=== PATIENT | male | born 1950 | race Caucasian/White ===

== ENCOUNTER 2017-07-04 22:06 | Inpatient (IN) | payer BC, MEDICARE ==
[2017-07-04] MEDS ORDERED: NITROGLYCERIN OINT 1 INCH/GM PACKET TOPICAL STA (22:30)
--- NOTE | 2017-07-04 22:44 | ED ---
General Adult HPI - General Chief complaint: Chest Pain Stated complaint: cardiac Time Seen by Provider: 07/04/17 22:10 Source: patient, EMS, RN notes reviewed Mode of arrival: EMS Limitations: no limitations - History of Present Illness Initial comments: This is a 67-year-old male who presents emergency Department complaining of a near syncopal episode tonight. Patient states he was bowling and he couldn't find issues in the back into the bowling alley look for shoes and when he was going back to his truck he became very dizzy and thought he is given a pass also went on to his knees at which point someone called an ambulance for him. Patient states he at no time had any chest pain or any palpitations per patient denies any shortness of breath or difficulty breathing. Patient states he did not pass out. Patient denies being lightheaded currently. Patient denies any headache per patient denies numbness weakness. Patient denies any abdominal pain patient denies any nausea vomiting or diarrhea. Patient denies any recent fever chills or cough. Patient went down to his knees gently and denies any injury. - Related Data Home Medications Medication Instructions Recorded Confirmed DULoxetine HCL [Cymbalta] 60 mg PO DAILY 09/22/15 10/16/15 Insulin Aspart [NovoLOG Flexpen] 8 units SQ AC-LUNCH 09/22/15 10/16/15 Insulin Aspart [NovoLOG Flexpen] 16 units SQ AC-BRKFST 09/22/15 10/16/15 Insulin Aspart [NovoLOG Flexpen] 20 units SQ AC-SUPPER 09/22/15 10/16/15 Insulin Aspart [NovoLOG Flexpen] See Protocol SQ AC-TID PRN 09/22/15 10/13/15 Insulin Glargine [Lantus] 54 unit SQ QAM 09/22/15 10/16/15 Methocarbamol [Robaxin] 750 mg PO DAILY PRN 09/22/15 10/13/15 Metoprolol Succinate [Toprol XL] 50 mg PO DAILY 09/22/15 10/16/15 Vits A,C,E/Lutein/Minerals 1 each PO DAILY 09/22/15 10/16/15 [Ocuvite with Lutein Tablet] Lisinopril [Zestril] 5 mg PO QAM 10/13/15 10/17/15 Previous Rx's Medication Instructions Recorded Aspirin 325 mg PO DAILY #30 tab 09/25/15 Atorvastatin [Lipitor] 80 mg PO HS #30 tab 09/25/15 Nitroglycerin Sl Tabs [Nitrostat] 0.4 mg SUBLINGUAL Q5M PRN #25 tab 09/25/15 Prasugrel [Effient] 10 mg PO DAILY #30 tab 09/25/15 metFORMIN HCL [Glucophage] 1,500 mg PO AC-SUPPER #0 09/25/15 Allergies Allergy/AdvReac Type Severity Reaction Status Date / Time No Known Allergies Allergy Verified 07/04/17 22:47 Review of Systems ROS Statement: Those systems with pertinent positive or pertinent negative responses have been documented in the HPI. ROS Other: All systems not noted in ROS Statement are negative. 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 History of Any Multi-Drug Resistant Organisms: None Reported Past Surgical History: Adenoidectomy, Appendectomy, Ear Surgery, Heart Catheterization, Heart Catheterization With Stent, Hernia Repair, Orthopedic Surgery, Tonsillectomy Additional Past Surgical History / Comment(s): 10-16-15 heart cath w/2 stents to lad. 09/24/15 PCI with stent. Other surgical hx: 2001 cardiac cath, R shoulder surgery, umbilical hernia repair, surgery for sleep apnea & cataract R eye. Past Anesthesia/Blood Transfusion Reactions: Postoperative Nausea & Vomiting ( PONV) Date of Last Stent Placement:: 09/24/15 Past Psychological History: PTSD Smoking Status: Former smoker Past Alcohol Use History: Occasional Past Drug Use History: None Reported - Past Family History Father Family Medical History: Cancer Additional Family Medical History / Comment(s): Prostate cancer. Father of heart problems at the age of 83 yrs. Mother Additional Family Medical History / Comment(s): Mother was a nurse and contracted hepatitis C from a needle stick. She of liver problems at age 78 yrs.. General Exam - General Exam Comments Initial Comments: GENERAL: Patient is well-developed and well-nourished. Patient is nontoxic and well- hydrated and is in mild distress. ENT: Neck is soft and supple. No significant lymphadenopathy is noted. Oropharynx is clear. Moist mucous membranes. Neck has full range of motion without eliciting any pain. EYES: The sclera were anicteric and conjunctiva were pink and moist. Extraocular movements were intact and pupils were equal round and reactive to light. Eyelids were unremarkable. PULMONARY: Unlabored respirations. Good breath sounds bilaterally. No audible rales rhonchi or wheezing was noted. CARDIOVASCULAR: There is a regular rate and rhythm without any murmurs gallops or rubs. ABDOMEN: Soft and nontender with normal bowel sounds. No palpable organomegaly was noted. There is no palpable pulsatile mass. SKIN: Skin is clear with no lesions or rashes and otherwise unremarkable. NEUROLOGIC: Patient is alert and oriented x3. Cranial nerves II through XII are grossly intact. Motor and sensory are also intact. Normal speech, volume and content. Symmetrical smile. MUSCULOSKELETAL: Normal extremities with adequate strength and full range of motion. LYMPHATICS: No significant lymphadenopathy is noted PSYCHIATRIC: Normal psychiatric evaluation. Limitations: no limitations Course Vital Signs 07/04/17 07/04/17 22:09 23:20 Temperature 97.8 F Pulse Rate 105 H 104 H Respiratory 16 16 Rate Blood Pressure 163/92 162/92 O2 Sat by Pulse 99 99 Oximetry Medical Decision Making - Medical Decision Making EKG shows sinus tachycardia at 107 bpm [place] interval is on a 42 QRS is 94 QT interval 364 QTC is 485. Patient's EKG shows some slight ST segment elevation in leads and aVF. Patient's having no chest pain and has had no chest pain at any time. Patient remained chest pain-free but because of the questionable ST segment elevation in the inferior leads I repeated an EKG the second EKG showed sinus tachycardia at 103 bpm AZ interval 250 QRS is 90 QT interval 350 QTC is 468 in the EKG shows ST segment elevation in leads aVF and slight elevation in lead 2. Patient has some ST segment depression in V1 and V2 Chest x-ray shows no acute abnormality. I spoke with Dr. Ernandez once I get second EKG he reviewed it and wanted the patient on heparin and he wanted a callback the troponin was elevated otherwise we will treat him like a unstable angina I spoke with Dr. Najera I admitted the patient and wrote admitting orders. I continue the heparin and aspirin and Nitropaste upstairs. - Lab Data Result diagrams: 07/04/17 22:22 07/04/17 22:22 Lab Results 07/04/17 07/04/17 07/04/17 Range/Units 22:22 22:22 22:22 WBC 10.5 (3.8-10.6) k/uL RBC 4.65 (4.30-5.90) m/uL Hgb 13.4 (13.0-17.5) gm/dL Hct 41.3 (39.0-53.0) % MCV 88.7 (80.0-100.0) fL MCH 28.7 (25.0-35.0) pg MCHC 32.3 (31.0-37.0) g/dL RDW 13.0 (11.5-15.5) % Plt Count 212 (150-450) k/uL Neutrophils % 76 % Lymphocytes % 15 % Monocytes % 6 % Eosinophils % 2 % Basophils % 1 % Neutrophils # 8.0 H (1.3-7.7) k/uL Lymphocytes # 1.6 (1.0-4.8) k/uL Monocytes # 0.6 (0-1.0) k/uL Eosinophils # 0.2 (0-0.7) k/uL Basophils # 0.1 (0-0.2) k/uL PT (9.0-12.0) sec INR (<1.2) APTT (22.0-30.0) sec Sodium 141 (137-145) mmol/L Potassium 3.6 (3.5-5.1) mmol/L Chloride 102 (98-107) mmol/L Carbon Dioxide 22 (22-30) mmol/L Anion Gap 17 mmol/L BUN 18 (9-20) mg/dL Creatinine 0.70 (0.66-1.25) mg/dL Est GFR (MDRD) Af Amer >60 (>60 ml/min/1.73 sqM) Est GFR (MDRD) Non-Af >60 (>60 ml/min/1.73 sqM) Glucose 82 (74-99) mg/dL Calcium 9.5 (8.4-10.2) mg/dL Magnesium 1.9 (1.6-2.3) mg/dL Total Bilirubin 0.4 (0.2-1.3) mg/dL AST 25 (17-59) U/L ALT 47 (21-72) U/L Alkaline Phosphatase 96 (38-126) U/L Total Creatine Kinase 98 (55-170) U/L CK-MB (CK-2) 3.0 H* (0.0-2.4) ng/mL CK-MB (CK-2) Rel Index 3.1 Troponin I 0.024 (0.000-0.034) ng/mL Total Protein 7.4 (6.3-8.2) g/dL Albumin 4.5 (3.5-5.0) g/dL 07/04/17 Range/Units 22:22 WBC (3.8-10.6) k/uL RBC (4.30-5.90) m/uL Hgb (13.0-17.5) gm/dL Hct (39.0-53.0) % MCV (80.0-100.0) fL MCH (25.0-35.0) pg MCHC (31.0-37.0) g/dL RDW (11.5-15.5) % Plt Count (150-450) k/uL Neutrophils % % Lymphocytes % % Monocytes % % Eosinophils % % Basophils % % Neutrophils # (1.3-7.7) k/uL Lymphocytes # (1.0-4.8) k/uL Monocytes # (0-1.0) k/uL Eosinophils # (0-0.7) k/uL Basophils # (0-0.2) k/uL PT 10.1 (9.0-12.0) sec INR 1.0 (<1.2) APTT 20.6 L (22.0-30.0) sec Sodium (137-145) mmol/L Potassium (3.5-5.1) mmol/L Chloride (98-107) mmol/L Carbon Dioxide (22-30) mmol/L Anion Gap mmol/L BUN (9-20) mg/dL Creatinine (0.66-1.25) mg/dL Est GFR (MDRD) Af Amer (>60 ml/min/1.73 sqM) Est GFR (MDRD) Non-Af (>60 ml/min/1.73 sqM) Glucose (74-99) mg/dL Calcium (8.4-10.2) mg/dL Magnesium (1.6-2.3) mg/dL Total Bilirubin (0.2-1.3) mg/dL AST (17-59) U/L ALT (21-72) U/L Alkaline Phosphatase (38-126) U/L Total Creatine Kinase (55-170) U/L CK-MB (CK-2) (0.0-2.4) ng/mL CK-MB (CK-2) Rel Index Troponin I (0.000-0.034) ng/mL Total Protein (6.3-8.2) g/dL Albumin (3.5-5.0) g/dL Critical Care Time Critical Care Time: Yes Total Critical Care Time: 35 Disposition Clinical Impression: Near syncope, Elevated troponin Disposition: ADMITTED IP TO THIS HOSP Referrals: Wilver Najera MD [Primary Care Provider] - 1-2 days Time of Disposition: 23:56
[2017-07-04 22:48] LABS: Basophils # (A) 0.1 k/uL (0-0.2); Basophils % (A) 1 %; Eosinophils # (A) 0.2 k/uL (0-0.7); Eosinophils % (A) 2 %; HCT 41.3 % (39.0-53.0); HGB 13.4 gm/dL (13.0-17.5); Lymphocytes # (A) 1.6 k/uL (1.0-4.8); Lymphocytes % (A) 15 %; MCH 28.7 pg (25.0-35.0); MCHC 32.3 g/dL (31.0-37.0); MCV 88.7 fL (80.0-100.0); Mean Platelet Volume 7.3; Monocytes # (A) 0.6 k/uL (0-1.0); Monocytes % (A) 6 %; Neutrophils % (A) 76 %; Platelet Count 212 k/uL (150-450); RBC 4.65 m/uL (4.30-5.90); WBC 10.5 k/uL (3.8-10.6)
[2017-07-04 23:01] LABS: ALT 47 U/L (21-72); AST 25 U/L (17-59); Albumin 4.5 g/dL (3.5-5.0); Alkaline Phosphatase 96 U/L (38-126); Anion Gap 17 mmol/L; Blood Urea Nitrogen 18 mg/dL (9-20); Calcium 9.5 mg/dL (8.4-10.2); Carbon Dioxide 22 mmol/L (22-30); Chloride 102 mmol/L (98-107); Glucose 82 mg/dL (74-99); Magnesium 1.9 mg/dL (1.6-2.3); Potassium 3.6 mmol/L (3.5-5.1); Sodium 141 mmol/L (137-145); Total Bilirubin 0.4 mg/dL (0.2-1.3); Total Protein 7.4 g/dL (6.3-8.2)
--- NOTE | 2017-07-04 23:03 | XR ---
EXAMINATION TYPE: XR chest 2V DATE OF EXAM: 07/04/2017 COMPARISON: NONE HISTORY: Syncope TECHNIQUE: Frontal and lateral views of the chest are obtained. FINDINGS: There is no heart failure nor confluent pneumonic infiltrate. Costophrenic angles are link r. Thoracic aorta is atheromatous. There are chest leads. Bony thorax is intact. IMPRESSION: No active cardiopulmonary disease.
[2017-07-04] MEDS ORDERED: HEPARIN SODIUM,PORCINE 5,000 UNIT/ML 1 ML VIAL IV ONE (23:12)
[2017-07-04] MEDS ORDERED: ATORVASTATIN 80 MG TAB PO STA (23:12)
[2017-07-04 23:16] LABS: Prothrombin Time 10.1 sec (9.0-12.0)
[2017-07-04 23:28] LABS: Troponin I 0.024 ng/mL (0.000-0.034)
[2017-07-04 23:31] LABS: Partial Thromboplastin Time 20.6 sec (22.0-30.0)
[2017-07-05 01:17] VITALS: BMI 32.5
[2017-07-05] MEDS ORDERED: HEPARIN SOD,PORK IN 0.45% NACL 25,000 UNIT in 0.45% NACL 1 500ML.BAG IV SCH (01:30)
[2017-07-05] MEDS: NITROGLYCERIN OINT 1 INCH/GM PACKET TOPICAL SCH ×3 (02:05→15:10)
[2017-07-05 04:57] LABS: Cholesterol 247 mg/dL (<200); HDL Cholesterol 44 mg/dL (40-60); LDL Cholesterol,Calculated 171 mg/dL (0-99); Triglycerides 161 mg/dL (<150)
[2017-07-05 05:06] LABS: Creatine Kinase MB 19.8 ng/mL (0.0-2.4)
[2017-07-05 05:07] LABS: Troponin I 3.97 ng/mL (0.000-0.034)
[2017-07-05 06:13] LABS: Glucose,Whole Blood 106 mg/dL (75-99)
[2017-07-05] MEDS ORDERED: METHOCARBAMOL 750 MG TAB PO PRN (07:03)
[2017-07-05] MEDS ORDERED: NITROGLYCERIN SL TABS 0.4 MG TAB SUBLINGUAL PRN ×3 (07:03→12:46)
--- NOTE | 2017-07-05 07:11 | P.HPIM ---
History of Present Illness Chief Complaint: Weakness with presyncope. This is a history of physical and a 67-year-old white male with known history of coronary artery disease who was bowling yesterday and stated significant weakness. He has been feeling off for the last several days. A friend is with him this morning who states significant poor control of blood sugar. He has had history of this in the past. He has even been to intensive diabetes clinic and proven that he's been able to keep his blood sugar down, but when left to his own devices, he does not follow his diet properly. He states weakness with shortness of breath and presyncope. He states that without someone helping him , he felt that he would pass out. He has not had previous symptoms recently but they have been having multiple falls reported by his family members and friends over the last 3 months. No overt loss of consciousness. No history of seizure disorder. Review of Systems Constitutional: Reports weakness Eyes: denies blurred vision, denies pain Ears, nose, mouth and throat: Denies headache, Denies sore throat Cardiovascular: Denies chest pain, Denies shortness of breath Respiratory: Denies cough Musculoskeletal: Denies myalgias Integumentary: Denies pruritus, Denies rash Neurological: Reports weakness Psychiatric: Denies anxiety, Denies depression Endocrine: Denies fatigue, Denies weight change Past Medical History Past Medical History: Coronary Artery Disease (CAD), Chest Pain / Angina, Diabetes Mellitus, Hyperlipidemia, Hypertension, Neurologic Disorder, Osteoarthritis (OA), Sleep Apnea/CPAP/BIPAP Additional Past Medical History / Comment(s): 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 History of Any Multi-Drug Resistant Organisms: None Reported Past Surgical History: Adenoidectomy, Appendectomy, Ear Surgery, Heart Catheterization, Heart Catheterization With Stent, Hernia Repair, Orthopedic Surgery, Tonsillectomy Additional Past Surgical History / Comment(s): 10-16-15 heart cath w/2 stents to lad. 09/24/15 PCI with stent. Other surgical hx: 2001 cardiac cath, R shoulder surgery, umbilical hernia repair, surgery for sleep apnea & cataract R eye. Past Anesthesia/Blood Transfusion Reactions: Postoperative Nausea & Vomiting ( PONV) Date of Last Stent Placement:: 09/24/15 Past Psychological History: PTSD Additional Psychological History / Comment(s): Pt believes he has PTSD. He is a . Smoking Status: Former smoker Past Alcohol Use History: Occasional Additional Past Alcohol Use History / Comment(s): Quit at age 28, smoked only for a few yrs. Pt quit drinking in 1983 Past Drug Use History: None Reported - Past Family History Father Family Medical History: Cancer Additional Family Medical History / Comment(s): Prostate cancer. Father of heart problems at the age of 83 yrs. Mother Additional Family Medical History / Comment(s): Mother was a nurse and contracted hepatitis C from a needle stick. She of liver problems at age 78 yrs.. Medications and Allergies Home Medications Medication Instructions Recorded Confirmed Type DULoxetine HCL [Cymbalta] 60 mg PO DAILY 09/22/15 10/16/15 History Insulin Aspart [NovoLOG Flexpen] 8 units SQ AC-LUNCH 09/22/15 10/16/15 History Insulin Aspart [NovoLOG Flexpen] 16 units SQ AC-BRKFST 09/22/15 10/16/15 History Insulin Aspart [NovoLOG Flexpen] 20 units SQ AC-SUPPER 09/22/15 10/16/15 History Insulin Aspart [NovoLOG Flexpen] See Protocol SQ AC-TID PRN 09/22/15 10/13/15 History Insulin Glargine [Lantus] 54 unit SQ QAM 09/22/15 10/16/15 History Methocarbamol [Robaxin] 750 mg PO DAILY PRN 09/22/15 10/13/15 History Metoprolol Succinate [Toprol XL] 50 mg PO DAILY 09/22/15 10/16/15 History Vits A,C,E/Lutein/Minerals 1 each PO DAILY 09/22/15 10/16/15 History [Ocuvite with Lutein Tablet] Aspirin 325 mg PO DAILY #30 tab 09/25/15 10/16/15 Rx Atorvastatin [Lipitor] 80 mg PO HS #30 tab 09/25/15 10/16/15 Rx Nitroglycerin Sl Tabs [Nitrostat] 0.4 mg SUBLINGUAL Q5M PRN #25 tab 09/25/15 Rx Prasugrel [Effient] 10 mg PO DAILY #30 tab 09/25/15 10/16/15 Rx metFORMIN HCL [Glucophage] 1,500 mg PO AC-SUPPER #0 09/25/15 10/16/15 Rx Lisinopril [Zestril] 5 mg PO QAM 10/13/15 10/17/15 History Allergies Allergy/AdvReac Type Severity Reaction Status Date / Time No Known Allergies Allergy Verified 07/04/17 22:47 Physical Exam Vitals: Vital Signs Temp Pulse Pulse Resp BP BP Pulse Ox 07/05/17 04:00 92 18 128/75 95 07/05/17 01:44 102 H 18 133/77 98 07/05/17 00:27 108 H 16 144/68 99 07/04/17 23:20 104 H 16 162/92 99 07/04/17 22:09 97.8 F 105 H 16 163/92 99 Intake and Output 07/04/17 07/05/17 07/05/17 22:59 06:59 14:59 Other: Voiding Method Incontinent # Voids 1 Weight 117.934 kg 118.3 kg - Constitutional General appearance: cooperative, no acute distress - EENT Eyes: EOMI - Neck Neck: no lymphadenopathy - Respiratory Respiratory: bilateral: CTA - Cardiovascular Rhythm: regular Heart sounds: normal: S1, S2 Abnormal Heart Sounds: no S3 Gallop - Gastrointestinal General gastrointestinal: soft, no tenderness - Neurologic Neurologic: CNII-XII intact - Musculoskeletal Musculoskeletal: strength equal bilaterally - Psychiatric Psychiatric: A&O x's 3, intact judgment & insight Results CBC & Chem 7: 07/04/17 22:22 07/04/17 22:22 Labs: Abnormal Lab Results - Last 24 Hours (Table) 07/04/17 07/04/17 07/04/17 Range/Units 22:22 22:22 22:22 Neutrophils # 8.0 H (1.3-7.7) k/uL APTT 20.6 L (22.0-30.0) sec POC Glucose (mg/dL) (75-99) mg/dL Total Creatine Kinase (55-170) U/L CK-MB (CK-2) 3.0 H* (0.0-2.4) ng/mL Troponin I (0.000-0.034) ng/mL Triglycerides (<150) mg/dL Cholesterol (<200) mg/dL LDL Cholesterol, Calc (0-99) mg/dL 07/05/17 07/05/17 07/05/17 Range/Units 04:12 04:12 06:10 Neutrophils # (1.3-7.7) k/uL APTT (22.0-30.0) sec POC Glucose (mg/dL) 106 H (75-99) mg/dL Total Creatine Kinase 224 H (55-170) U/L CK-MB (CK-2) 19.8 H* (0.0-2.4) ng/mL Troponin I 3.970 H* (0.000-0.034) ng/mL Triglycerides 161 H (<150) mg/dL Cholesterol 247 H (<200) mg/dL LDL Cholesterol, Calc 171 H (0-99) mg/dL Thrombosis Risk Factor Assmnt - Choose All That Apply Each Risk Factor Represents 2 Points: Age 61-74 years Thrombosis Risk Factor Assessment Total Risk Factor Score: 2 Thrombosis Risk Factor Assessment Level: Low Risk Assessment and Plan (1) Diabetes Current Visit: Yes Status: Acute Code(s): E11.9 - TYPE 2 DIABETES MELLITUS WITHOUT COMPLICATIONS SNOMED Code(s): 77962778 (2) Elevated troponin Current Visit: Yes Status: Acute Code(s): R74.8 - ABNORMAL LEVELS OF OTHER SERUM ENZYMES SNOMED Code(s): 355870056 (3) Near syncope Current Visit: Yes Status: Acute Code(s): R55 - SYNCOPE AND COLLAPSE SNOMED Code(s): 128673998 Plan: Rule out myocardial infarction. Check computed tomography scan of head if not done. Echocardiogram carotid Doppler to be considered. Reconcile home medications. The patient states he typically takes about 54 units of Lantus, although he is somewhat noncompliant with this. We will decrease this to 26 units and keep him nothing by mouth pending cardiology evaluation. Otherwise, keep on sliding scale. See orders otherwise. Time with Patient: Greater than 30
--- NOTE | 2017-07-05 08:27 | P.CRDCN ---
History of Present Illness Consult date: 07/05/17 Requesting physician: Wilver Najera Consult reason: sycope Chief complaint: Near syncope, chest pain History of present illness: This is a 67-year-old gentleman who follows with Dr. Nic Ernandez in the office. He has a known history of coronary artery disease with prior PCI, diabetes, hyperlipidemia, patient underwent stenting of the first obtuse marginal as well as PCI of the LAD in September 2015, hypertension history, he presents to the hospital with a near syncopal episode. According to the patient , he was at the [employer], he had finished [employer]one, and states that he could not find his shoes. He states that he walked back out to the truck to see if his Jenn Rykert shoes were out there, patient states he became very lightheaded and dizzy and felt as though he may pass out. He did go down to his knees. According to the patient he did not pass out completely. He does state that these symptoms remind him of what he has had in the past prior to his angioplasty. He denies any overt chest discomfort at that time. Initial EKG on presentation here showed a sinus tachycardia with ST elevation noted in the inferior leads, EKG performed this morning shows a normal sinus rhythm with T-wave inversion in the inferior leads. Chest x-ray does not reveal any acute cardiopulmonary disease. Blood pressure on arrival here 162/90 with a heart rate of 105, 99% on room air. Blood pressure this morning 136/80, heart rate in the 90s, 97% on room air. Laboratory data was reviewed, sodium 141, potassium 3.6, BUN 18, creatinine 0.7. Magnesium 1.9. Troponins 0.024, 3.9. Cholesterol 247, LDL 171, HDL 44, triglycerides 151. At the time of my examination this morning, patient complains of some left shoulder and scapula discomfort. Mild dizziness. No chest discomfort. 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 History of Any Multi-Drug Resistant Organisms: None Reported Past Surgical History: Adenoidectomy, Appendectomy, Ear Surgery, Heart Catheterization, Heart Catheterization With Stent, Hernia Repair, Orthopedic Surgery, Tonsillectomy Additional Past Surgical History / Comment(s): 10-16-15 heart cath w/2 stents to lad. 09/24/15 PCI with stent. Other surgical hx: 2001 cardiac cath, R shoulder surgery, umbilical hernia repair, surgery for sleep apnea & cataract R eye. Past Anesthesia/Blood Transfusion Reactions: Postoperative Nausea & Vomiting ( PONV) Date of Last Stent Placement:: 09/24/15 Past Psychological History: PTSD Additional Psychological History / Comment(s): Pt believes he has PTSD. He is a . Smoking Status: Former smoker Past Alcohol Use History: Occasional Additional Past Alcohol Use History / Comment(s): Quit at age 28, smoked only for a few yrs. Pt quit drinking in 1983 Past Drug Use History: None Reported - Past Family History Father Family Medical History: Cancer Additional Family Medical History / Comment(s): Prostate cancer. Father of heart problems at the age of 83 yrs. Mother Additional Family Medical History / Comment(s): Mother was a nurse and contracted hepatitis C from a needle stick. She of liver problems at age 78 yrs.. Medications and Allergies Home Medications Medication Instructions Recorded Confirmed Type DULoxetine HCL [Cymbalta] 60 mg PO DAILY 09/22/15 10/16/15 History Insulin Aspart [NovoLOG Flexpen] 8 units SQ AC-LUNCH 09/22/15 10/16/15 History Insulin Aspart [NovoLOG Flexpen] 16 units SQ AC-BRKFST 09/22/15 10/16/15 History Insulin Aspart [NovoLOG Flexpen] 20 units SQ AC-SUPPER 09/22/15 10/16/15 History Insulin Aspart [NovoLOG Flexpen] See Protocol SQ AC-TID PRN 09/22/15 10/13/15 History Insulin Glargine [Lantus] 54 unit SQ QAM 09/22/15 10/16/15 History Methocarbamol [Robaxin] 750 mg PO DAILY PRN 09/22/15 10/13/15 History Metoprolol Succinate [Toprol XL] 50 mg PO DAILY 09/22/15 10/16/15 History Vits A,C,E/Lutein/Minerals 1 each PO DAILY 05/02/16 05/26/16 History [Ocuvite with Lutein Tablet] Aspirin 325 mg PO DAILY #30 tab 09/25/15 10/16/15 Rx Atorvastatin [Lipitor] 80 mg PO HS #30 tab 09/25/15 10/16/15 Rx Nitroglycerin Sl Tabs [Nitrostat] 0.4 mg SUBLINGUAL Q5M PRN #25 tab 09/25/15 Rx Prasugrel [Effient] 10 mg PO DAILY #30 tab 09/25/15 10/16/15 Rx metFORMIN HCL [Glucophage] 1,500 mg PO AC-SUPPER #0 09/25/15 10/16/15 Rx Lisinopril [Zestril] 5 mg PO QAM 10/13/15 10/17/15 History Allergies Allergy/AdvReac Type Severity Reaction Status Date / Time No Known Allergies Allergy Verified 07/04/17 22:47 Physical Exam Vitals: Vital Signs Temp Pulse Pulse Resp BP BP Pulse Ox 07/05/17 07:53 98.0 F 91 18 137/82 97 07/05/17 04:00 92 18 128/75 95 07/05/17 01:44 102 H 18 133/77 98 07/05/17 00:27 108 H 16 144/68 99 07/04/17 23:20 104 H 16 162/92 99 07/04/17 22:09 97.8 F 105 H 16 163/92 99 Intake and Output 07/04/17 07/05/17 07/05/17 22:59 06:59 14:59 Other: Voiding Method Incontinent # Voids 1 Weight 117.934 kg 118.3 kg PHYSICAL EXAMINATION: HEENT: Head is atraumatic, normocephalic. Pupils equal, round. Neck is supple. There is no elevated jugular venous pressure. HEART EXAMINATION: Heart S1, S2 normal. No murmur or gallop heard. CHEST EXAMINATION: Lungs are clear to auscultation and precussion. No chest wall tenderness is noted on palpation or with deep breathing. ABDOMEN: Soft, nontender. Bowel sounds are heard. No organomegaly noted. EXTREMITIES: 2+ peripheral pulses with no evidence of peripheral edema and no calf tenderness noted. NEUROLOGIC patient is awake, alert and oriented -3. . Results 07/04/17 22:22 07/04/17 22:22 Cardiac Enzymes 07/04/17 07/04/17 07/05/17 Range/Units 22:22 22:22 04:12 AST 25 (17-59) U/L CK-MB (CK-2) 3.0 H* 19.8 H* (0.0-2.4) ng/mL Troponin I 0.024 3.970 H* (0.000-0.034) ng/mL Coagulation 07/04/17 Range/Units 22:22 PT 10.1 (9.0-12.0) sec APTT 20.6 L (22.0-30.0) sec Lipids 07/05/17 Range/Units 04:12 Triglycerides 161 H (<150) mg/dL Cholesterol 247 H (<200) mg/dL HDL Cholesterol 44 (40-60) mg/dL CBC 07/04/17 Range/Units 22:22 WBC 10.5 (3.8-10.6) k/uL RBC 4.65 (4.30-5.90) m/uL Hgb 13.4 (13.0-17.5) gm/dL Hct 41.3 (39.0-53.0) % Plt Count 212 (150-450) k/uL Comprehensive Metabolic Panel 07/04/17 Range/Units 22:22 Sodium 141 (137-145) mmol/L Potassium 3.6 (3.5-5.1) mmol/L Chloride 102 (98-107) mmol/L Carbon Dioxide 22 (22-30) mmol/L BUN 18 (9-20) mg/dL Creatinine 0.70 (0.66-1.25) mg/dL Glucose 82 (74-99) mg/dL Calcium 9.5 (8.4-10.2) mg/dL AST 25 (17-59) U/L ALT 47 (21-72) U/L Alkaline Phosphatase 96 (38-126) U/L Total Protein 7.4 (6.3-8.2) g/dL Albumin 4.5 (3.5-5.0) g/dL Current Medications Generic Name Dose Route Start Last Admin Trade Name Freq PRN Reason Stop Dose Admin Aspirin 325 mg 07/05/17 09:00 Aspirin PO DAILY [facility] Atorvastatin Calcium 80 mg 07/05/17 21:00 Lipitor PO HS [facility] Duloxetine HCl 60 mg 07/05/17 09:00 Cymbalta PO DAILY LOU Heparin Sodium/Sodium Chloride 500 mls @ 20 mls/hr 07/05/17 01:30 07/05/17 02 :58 25,000 unit/ Sodium Chloride IV 8.48 units/kg/hr .Q24H LOU 20 mls/hr Protocol Administration 8.48 UNITS/KG/HR Insulin Detemir 26 unit 07/05/17 21:00 Levemir SQ HS LOU Methocarbamol 750 mg 07/05/17 07:03 Robaxin PO DAILY PRN Pain Metoprolol Succinate 50 mg 07/05/17 09:00 Toprol Xl PO DAILY LOU Multivitamins/Minerals 1 each 07/05/17 09:00 Ivite PO DAILY LOU Nitroglycerin 1 inch 07/05/17 00:00 07/05/17 05:05 Nitro-Bid Oint TOPICAL 1 inch Q6HR LOU Administration Nitroglycerin 0.4 mg 07/04/17 23:57 Nitrostat SUBLINGUAL Q5M PRN Chest Pain Nitroglycerin 0.4 mg 07/05/17 07:03 Nitrostat SUBLINGUAL Q5M PRN Chest Pain Prasugrel 10 mg 07/05/17 09:00 Effient PO DAILY LOU Intake and Output 07/04/17 07/05/17 07/05/17 22:59 06:59 14:59 Other: Voiding Method Incontinent # Voids 1 Weight 117.934 kg 118.3 kg 07/04/17 22:22 07/04/17 22:22 EKG Interpretations (text) Initial EKG on presentation here showed a sinus tachycardia with ST elevation noted in the inferior leads. EKG performed this morning shows normal sinus rhythm with T-wave inversion in the inferior leads. Assessment and Plan Plan: Assessment and plan #1 acute myocardial infarction #2 known history of coronary artery disease with prior circumflex and LAD stenting #3 hypertension #4 diabetes #5 hyperlipidemia Plan We will obtain a stat echocardiogram with Doppler study. Continue IV heparin, aspirin, Lipitor 80, metoprolol 50 mg daily, Nitropaste, and Effient 10 mg daily. Patient has also been advised that he may need to undergo cardiac catheterization, the risks and benefits again were explained to the patient in detail, and he is willing to proceed. DNP note has been reviewed, I agree with a documented findings and plan of care. Patient was seen and examined.
[2017-07-05] MEDS: NITROGLYCERIN SL TABS 0.4 MG TAB SUBLINGUAL PRN ×2 (08:41→08:48)
[2017-07-05] MEDS ORDERED: PRASUGREL 10 MG TAB PO SCH (09:00)
[2017-07-05] MEDS ORDERED: ASPIRIN 325 MG TAB PO SCH (09:00)
[2017-07-05] MEDS ORDERED: ALPRAZolam 0.5 MG TAB PO PRN (09:03)
[2017-07-05] MEDS ORDERED: SODIUM CHLORIDE 0.9% 1,000 ML in EMPTY BAG 1 BAG IV ONE (09:03)
[2017-07-05] MEDS ORDERED: ATORVASTATIN 80 MG TAB PO STA (09:03)
[2017-07-05] MEDS ORDERED: ASPIRIN 325 MG TAB PO STA (09:03)
[2017-07-05] MEDS ORDERED: ALPRAZolam 0.25 MG TAB PO PRN (09:03)
[2017-07-05] MEDS: ATORVASTATIN 80 MG TAB PO SCH (09:21)
[2017-07-05] MEDS: METOPROLOL SUCCINATE (ER) 50 MG TAB.ER.24H PO SCH (09:21)
[2017-07-05] MEDS: VIT A,C & E-LUTEIN-MINERALS 1 EACH TAB PO SCH (09:22)
--- NOTE | 2017-07-05 10:06 | US ---
EXAMINATION TYPE: US carotid duplex BILAT DATE OF EXAM: 07/05/2017 COMPARISON: NONE CLINICAL HISTORY: Presyncope. Near syncope EXAM MEASUREMENTS: RIGHT: Peak Systolic Velocity (PSV) cm/sec ----- Right CCA: 79.1 ----- Right ICA: 88.7 ----- Right ECA: 110.7 ICA/CCA ratio: 1.1 RIGHT: End Diastole cm/sec ----- Right CCA: 9.0 ----- Right ICA: 18.3 ----- Right ECA: 0.0 LEFT: Peak Systolic Velocity (PSV) cm/sec ----- Left CCA: 100.0 ----- Left ICA: 86.2 ----- Left ECA: 145.7 ICA/CCA ratio: 0.9 LEFT: End Diastole cm/sec ----- Left CCA: 10.8 ----- Left ICA: 22.1 ----- Left ECA: 0.0 VERTEBRALS (direction of flow): Right Vertebral: Antegrade Left Vertebral: Antegrade Rhythm: Normal Grayscale images show moderate eccentric plaque right carotid bulb and mild to moderate eccentric matt que left carotid bulb. Velocity measurements and ratios remain within normal limits in the bilateral internal carotid arteries. Increased peak systolic velocity left external carotid artery is incidenta lly noted. IMPRESSION: Moderate atherosclerotic change bilaterally without hemodynamically significant stenosis seen in either internal carotid artery.
[2017-07-05] MEDS ORDERED: IV FLUID CONTINUATION 200 ML IV ONE (10:54)
[2017-07-05] MEDS ORDERED: diphenhydrAMINE 50 MG/ML 1 ML VIAL IVP ONE ×2 (11:14→11:19)
[2017-07-05] MEDS ORDERED: MIDAZOLAM 2 MG/2 ML VIAL IV ONE ×2 (11:15→11:18)
[2017-07-05] MEDS ORDERED: NITROGLYCERIN SL TABS 0.4 MG TAB SUBLINGUAL ONE ×2 (11:18→11:54)
[2017-07-05] MEDS ORDERED: CLOPIDOGREL 75 MG TAB PO ONE ×2 (11:18→12:32)
[2017-07-05] MEDS ORDERED: LIDOCAINE 2% INJ 20 MG/ML SQ ONE (11:20)
--- NOTE | 2017-07-05 11:22 | ECHOF ---
Referral Reason:assess lvf MEASUREMENTS -------- HEIGHT: 185.4 cm WEIGHT: 117.9 kg BP: 115/70 IVSd: 1.5 cm (0.6 - 1.1) LVIDd: 4.5 cm (3.9 - 5.3) LVPWd: 1.7 cm (0.6 - 1.1) IVSs: 2.1 cm LVIDs: 3.0 cm LVPWs: 2.1 cm Ao Diam: 3.7 cm (2.0 - 3.7) AV Cusp: 2.0 cm (1.5 - 2.6) LA Diam: 4.0 cm (2.7 - 3.8) MV EXCURSION: 17.354 mm (> 18.000) MV EF SLOPE: 110 mm/s (70 - 150) EPSS: 1.0 cm MV E Guy: 0.75 m/s MV DecT: 202 ms MV A Guy: 0.81 m/s MV E/A Ratio: 0.93 RAP: 5.00 mmHg RVSP: 9.20 mmHg FINDINGS -------- Sinus rhythm. This was a technically difficult study with suboptimal views. The left ventricular size is normal. There is moderate concentric left ventricular hypertrophy. O verall left ventricular systolic function is low-normal with, an EF between 50 - 55 %. The right ventricle is normal in size and function. The left atrium is normal in size. The right atrium is normal in size. 1.5mg of Definity was utilized for enhancement of images The aortic valve is trileaflet, and appears structurally normal. No aortic stenosis or regurgitation. There is trace mitral regurgitation. Mild tricuspid regurgitation present. The right ventricular systolic pressure, as measured by Doppl er, is 9.20mmHg. The pulmonic valve was not well visualized. There is no pericardial effusion. CONCLUSIONS -------- 1. Sinus rhythm. 2. This was a technically difficult study with suboptimal views. 3. The left ventricular size is normal. 4. There is moderate concentric left ventricular hypertrophy. 5. Overall left ventricular systolic function is low-normal with, an EF between 50 - 55 %. 6. The left atrium is normal in size. 7. Lumason used 8. The aortic valve is trileaflet, and appears structurally normal. No aortic stenosis or regurgitati on. 9. There is trace mitral regurgitation. 10. Mild tricuspid regurgitation present. 11. The right ventricular systolic pressure, as measured by Doppler, is 9.20mmHg. 12. The pulmonic valve was not well visualized. 13. There is no pericardial effusion. TODDLER GUIDE: Janki Park RDCS
[2017-07-05] MEDS ORDERED: BIVALIRUDIN BOLUS 250 MG/50 ML IV ONE (11:41)
[2017-07-05] MEDS ORDERED: BIVALIRUDIN 250 MG in SODIUM CHLORIDE 0.9% 40 ML IV ONE (11:42)
[2017-07-05] MEDS: NITROGLYCERIN 1000MCG/10ML SYRINGE INTRACORON ONE ×2 (11:43→11:57)
[2017-07-05] MEDS ORDERED: HYDROmorphone 2 MG/ML 1 ML SYRINGE IV ONE (12:06)
[2017-07-05] MEDS ORDERED: BIVALIRUDIN 250 MG in SODIUM CHLORIDE 0.9% 50 ML IV ONE (12:11)
[2017-07-05] MEDS ORDERED: IOHEXOL 350 MG/ML (PER ML) 100ML BTL INJ ONE (12:32)
[2017-07-05] MEDS ORDERED: RX INFO: IV CONTRAST WAS GIVEN 1 EACH MISC MISCELLANE PRN (12:46)
[2017-07-05] MEDS ORDERED: ATROPINE SULFATE 0.1 MG/ML 10ML SYRINGE IV PRN (12:46)
[2017-07-05] MEDS ORDERED: ZOLPIDEM 5 MG TAB PO PRN (12:46)
[2017-07-05] MEDS ORDERED: MAG HYDROX/AL HYDROX/SIMETH 30 ML CUP PO PRN (12:46)
[2017-07-05] MEDS: SODIUM CHLORIDE 0.9% 1,000 ML IV SCH (13:45)
[2017-07-05 14:10] LABS: Troponin I 6.17 ng/mL (0.000-0.034)
[2017-07-05 14:11] LABS: Creatine Kinase MB 30.8 ng/mL (0.0-2.4)
[2017-07-05 14:19] LABS: Glucose,Whole Blood 184 mg/dL (75-99)
[2017-07-05] MEDS: DULoxetine HCL 60 MG CAPSULE.DR PO SCH (14:24)
[2017-07-05 16:54] LABS: Glucose,Whole Blood 184 mg/dL (75-99)
[2017-07-05] MEDS: INSULIN ASPART 100 UNIT/ML 1 ML 10 ML VIAL SQ SCH ×2 (17:50→21:31)
[2017-07-05 21:15] LABS: Glucose,Whole Blood 294 mg/dL (75-99)
[2017-07-05] MEDS: INSULIN DETEMIR 100 UNIT/ML 10 ML VIAL SQ SCH (21:31)
[2017-07-06] MEDS: SODIUM CHLORIDE 0.9% 1,000 ML IV SCH (03:24)
[2017-07-06 06:10] LABS: Glucose,Whole Blood 148 mg/dL (75-99)
[2017-07-06 06:32] LABS: Basophils # (A) 0.1 k/uL (0-0.2); Basophils % (A) 1 %; Eosinophils # (A) 0.1 k/uL (0-0.7); Eosinophils % (A) 2 %; HCT 36.3 % (39.0-53.0); HGB 12.3 gm/dL (13.0-17.5); Lymphocytes # (A) 1.9 k/uL (1.0-4.8); Lymphocytes % (A) 24 %; MCH 29.3 pg (25.0-35.0); MCHC 33.8 g/dL (31.0-37.0); MCV 86.7 fL (80.0-100.0); Mean Platelet Volume 7.4; Monocytes # (A) 0.6 k/uL (0-1.0); Monocytes % (A) 7 %; Neutrophils % (A) 64 %; Platelet Count 206 k/uL (150-450); RBC 4.19 m/uL (4.30-5.90); RDW 13.2 % (11.5-15.5); WBC 7.7 k/uL (3.8-10.6)
[2017-07-06 06:55] LABS: Anion Gap 8 mmol/L; Blood Urea Nitrogen 13 mg/dL (9-20); Calcium 9.4 mg/dL (8.4-10.2); Carbon Dioxide 24 mmol/L (22-30); Chloride 107 mmol/L (98-107); Glucose 141 mg/dL (74-99); Sodium 139 mmol/L (137-145)
[2017-07-06] MEDS: INSULIN ASPART 100 UNIT/ML 1 ML 10 ML VIAL SQ SCH ×4 (07:02→21:31)
--- NOTE | 2017-07-06 07:54 | P.PN ---
Subjective Principal diagnosis: Status post cardiac cath. The patient is here essentially for element of syncope. Cardiac catheterization was done yesterday. Results are pending. The patient feels much better. No overt chest pain or presyncopal/syncopal beats stated. No voiding difficulties. He has an underlying history diabetes. Objective - Vital Signs Vital signs: Vital Signs Temp 98.0 F 07/06/17 04:00 Pulse 73 07/06/17 04:00 Resp 16 07/06/17 04:00 BP 121/68 07/06/17 04:00 Pulse Ox 96 07/06/17 04:00 Intake & Output 07/05/17 07/06/17 07/06/17 18:59 06:59 18:59 Intake Total 389.73 450 Output Total 1050 Balance -660.27 450 Weight 118.3 kg 118.5 kg Intake: IV 153.73 Intake, IV Titration 325 Amount Sodium Chloride 0.9% 1, 325 000 ml @ 75 mls/hr IV . [id number] LOU Rx#:[id number] Oral 236 125 Output: Urine 1050 Other: Voiding Method Urinal Urinal # Voids 3 - Constitutional General appearance: Present: cooperative. Absent: no acute distress - EENT Eyes: Absent: abnormal pupil - Respiratory Respiratory: bilateral: CTA - Cardiovascular Rhythm: regular Heart sounds: normal: S1, S2 - Gastrointestinal General gastrointestinal: Present: soft. Absent: tenderness - Labs CBC & Chem 7: 07/06/17 05:43 07/06/17 05:43 Labs: Abnormal Lab Results - Last 24 Hours (Table) 07/05/17 07/05/17 07/05/17 Range/Units 13:16 14:17 16:46 RBC (4.30-5.90) m/uL Hgb (13.0-17.5) gm/dL Hct (39.0-53.0) % Glucose (74-99) mg/dL POC Glucose (mg/dL) 184 H 184 H (75-99) mg/dL Total Creatine Kinase 312 H (55-170) U/L CK-MB (CK-2) 30.8 H* (0.0-2.4) ng/mL Troponin I 6.170 H* (0.000-0.034) ng/mL 07/05/17 07/06/17 07/06/17 Range/Units 21:13 05:43 05:43 RBC 4.19 L (4.30-5.90) m/uL Hgb 12.3 L (13.0-17.5) gm/dL Hct 36.3 L (39.0-53.0) % Glucose 141 H (74-99) mg/dL POC Glucose (mg/dL) 294 H (75-99) mg/dL Total Creatine Kinase (55-170) U/L CK-MB (CK-2) (0.0-2.4) ng/mL Troponin I (0.000-0.034) ng/mL 07/06/17 Range/Units 06:09 RBC (4.30-5.90) m/uL Hgb (13.0-17.5) gm/dL Hct (39.0-53.0) % Glucose (74-99) mg/dL POC Glucose (mg/dL) 148 H (75-99) mg/dL Total Creatine Kinase (55-170) U/L CK-MB (CK-2) (0.0-2.4) ng/mL Troponin I (0.000-0.034) ng/mL Assessment and Plan (1) Diabetes Current Visit: Yes Status: Acute Code(s): E11.9 - TYPE 2 DIABETES MELLITUS WITHOUT COMPLICATIONS SNOMED Code(s): 78010949 (2) Elevated troponin Current Visit: Yes Status: Acute Code(s): R74.8 - ABNORMAL LEVELS OF OTHER SERUM ENZYMES SNOMED Code(s): 481105669 (3) Near syncope Current Visit: Yes Status: Acute Code(s): R55 - SYNCOPE AND COLLAPSE SNOMED Code(s): 398888947 Plan: Await catheterization results for pending therapeutic change. The patient seems to be clinically improved. Advance diet and increased home dose of Lantus. See orders otherwise. Anticipate discharge in next 24-48 hours.
--- NOTE | 2017-07-06 08:41 | CC ---
CARDIAC CATHETERIZATION REPORT DATE OF SERVICE: 07/05/2017 PROCEDURE: 1. Left heart catheterization and coronary angiography. 2. PTCA and stenting of a complex proximal/mid circumflex coronary artery involving acute bend and with heavy calcification. 3. PTCA of first obtuse marginal branch of circumflex. Moderate conscious sedation time 77 minutes. A combination of Versed and fentanyl were used along with some Dilaudid for back pain. CLINICAL INFORMATION: Mr. Elmer Fermin is a 67-year-old gentleman with a history of type 2 diabetes, hypertension, hyperlipidemia, and CAD. In the first week of September 2015, I performed stenting of the first obtuse marginal branch that was subtotally occluded. Later on in the month on September, I performed stenting of the mid LAD that was heavily calcified after performing orbital atherectomy. Patient apparently has been noncompliant with medications. His diabetes control has worsened. He came into the hospital after an episode of what seems to be dizziness and lightheadedness without actual syncope and had a troponin elevation. He presented with a non-ST elevation OK with inferior nonspecific ST-T changes and was advised coronary angiography. Risks, benefits, options, rationale were explained. PROCEDURE NOTE: Under local anesthesia and strict aseptic precautions, a 6-[place] introducer was placed in the right femoral artery. Using standard Milind catheters I performed coronary angiography. Selective coronary angiography of RCA was not possible because of heavy calcification and a posterior location. Following coronary angiography, I recommended intervention that was performed in the same setting. CORONARY ANGIOGRAPHY FINDINGS: RIGHT CORONARY ARTERY: Nondominant vessel has calcification at the ostium, had difficulties with selective injection. There is diffuse noncritical disease throughout and it bifurcates into 2 branches in the midportion. There is diffuse noncritical disease in the nondominant RCA. LEFT MAIN CORONARY ARTERY: Short patent calcified vessel free of significant disease that bifurcates into LAD and circumflex. LEFT ANTERIOR DESCENDING CORONARY ARTERY: Good caliber vessel extends along the antral wall. The midportion of the LAD which was stented in 2016 is widely patent with brisk flow and runs all the way to the apex giving off septal and diagonal branches. There are minor irregularities but no significant disease in the entire LAD system and the stented segment is patent. LEFT POSTERIOR CIRCUMFLEX CORONARY ARTERY: This is a dominant vessel gives off a very high first obtuse marginal that was stented in 2016, now is patent, has a ostial disease of about 40% with brisk flow. Immediately after this branch, there is a progression of disease with 80% eccentric calcified lesion in the circumflex. Circumflex comes off at a 90 degree angle and this calcified diseased segment is progression of disease compared to the previous study. Beyond this, it gives off another obtuse marginal branch and then bifurcates into PDA and PLV, both of which have minor irregularities and no significant disease. FINAL IMPRESSION: This patient has a diffusely disease nondominant right coronary artery. Left anterior descending coronary artery that was stented in 2016 is widely patent. The circumflex which is dominant, has a first obtuse marginal that has a 40% ostial lesion, but stented segment is patent. Immediately after this, there is 80% heavily calcified eccentric lesion and the circumflex comes off at 90 degree angle. Distal branches of circumflex are free of significant disease. RECOMMENDATION: After some deliberation, I recommended intervention of the circumflex and also consider PTCA of the first obtuse marginal branch and proceeded to perform in the same setting. PCI PROCEDURE: I gave Angiomax bolus and infusion as per protocol. An additional 225 mg of Plavix were given. Using a Voda 3.5 catheter, I cannulated the left coronary artery. A BMW wire was used to cross the circumflex acute angle. I had to use a steep curve on the wire. Wire was kept distally. Predilatation was performed using a NC 3.0, 12 mm balloon. There was difficulty advancing the balloon because of the angulation. I then advanced a 3.5 caliber 12 mm long Xience drug-eluting stent with considerable difficulty and forward pressure. This stent was deployed right after the origin of the first obtuse marginal branch. The stent was deployed at 12 atmospheres. The proximal portion of the stent was still not open. I used a 3.75 caliber 8 mm NC trek balloon and dilated the proximal portion with a good result. There was some haziness at the proximal end, but this was addressed with additional inflation. Excellent result was noted. I then used a used a BMW wire to cross the lesion in the first obtuse marginal and dilated the first obtuse marginal in the proximal portion with a 2.5 caliber NC Trek balloon. This was dilated at 8 atmospheres for 30 seconds. Decent angiographic result was achieved. I performed multiple angiograms to look at the proximal portion of the stented segment, but I was comfortable that there was no significant lesion and the flow was brisk. The patient was pain free. EKG was unremarkable. Excellent angiographic result was achieved. The sheath was taken out with an Angio-Seal device and Angio-Seal device used to secure hemostasis. LV pressures were obtained and the LV end-diastolic pressure was about 14 mmHg without any gradient across the aortic valve. Results were discussed with the patient's and family. He was advised regarding compliance with medications and diabetes control. He will be discharged hopefully in the next 24 to 36 hours if he remains stable. MMODL / IJN: [id number] /
--- NOTE | 2017-07-06 08:47 | LTR ---
Dear Dr. Najera: Thank you for the opportunity to participate in the care of Mr. Elmer Fermin. Please find enclosed my detailed cardiac cath report for your records. This gentleman as per our discussion has been very noncompliant. I would appreciate another referral to intensive diabetes clinic or at least CGM monitoring so his blood sugar control can be optimized. From a cardiac standpoint, his previously stented segments are patent, but he had a new lesion in a very heavily calcified segment of the proximal/mid circumflex. This was addressed with a drug-eluting stent. I expect that he will do well and hopefully will be discharged in the next 24 to 48 hours. Thank you for your referral and please call for questions. With kindest regards. Sincerely yours, MD DOROTHY Humphrey / ISI: [id number] /
[2017-07-06] MEDS: DULoxetine HCL 60 MG CAPSULE.DR PO SCH (09:37)
[2017-07-06] MEDS: CLOPIDOGREL 75 MG TAB PO SCH (09:37)
[2017-07-06] MEDS: METOPROLOL SUCCINATE (ER) 50 MG TAB.ER.24H PO SCH (09:37)
[2017-07-06] MEDS: ASPIRIN 81 MG PO SCH (09:37)
[2017-07-06] MEDS: VIT A,C & E-LUTEIN-MINERALS 1 EACH TAB PO SCH (09:37)
[2017-07-06 11:47] LABS: Glucose,Whole Blood 256 mg/dL (75-99)
[2017-07-06 14:24] LABS: Hemoglobin A1C 10.2 % (4.0-6.0)
--- NOTE | 2017-07-06 16:36 | P.PN ---
Subjective Progress Note Date: 07/06/17 Principal diagnosis: Inferior wall SC This is a 67-year-old gentleman who follows with Dr. Nic Ernandez in the office. He has a known history of coronary artery disease with prior PCI, diabetes, hyperlipidemia, patient underwent stenting of the first obtuse marginal as well as PCI of the LAD in September 2015, hypertension history, he presents to the hospital with a near syncopal episode. According to the patient , [place] was at the [employer], he had finished bowling, and states that he could not find his shoes. He states that he walked back out to the truck to see if his [employer] shoes were out there, patient states he became very lightheaded and dizzy and felt as though he may pass out. He did go down to his knees. According to the patient he did not pass out completely. He does state that these symptoms remind him of what he has had in the past prior to his angioplasty. He denies any overt chest discomfort at that time. Initial EKG on presentation here showed a sinus tachycardia with ST elevation noted in the inferior leads, EKG performed this morning shows a normal sinus rhythm with T-wave inversion in the inferior leads. Chest x-ray does not reveal any acute cardiopulmonary disease. Blood pressure on arrival here 162/90 with a heart rate of 105, 99% on room air. Blood pressure this morning 136/80, heart rate in the 90s, 97% on room air. Laboratory data was reviewed, sodium 141, potassium 3.6, BUN 18, creatinine 0.7. Magnesium 1.9. Troponins 0.024, 3.9. Cholesterol 247, LDL 171, HDL 44, triglycerides 151. At the time of my examination this morning, patient complains of some left shoulder and scapula discomfort. Mild dizziness. No chest discomfort. 07/06/2017 Patient was taken to the cardiac catheterization lab yesterday where he underwent angioplasty and stenting of the circumflex artery. He was seen and examined this morning, denies any chest pain or difficulty in breathing. Right groin is soft. Hemodynamically stable. Objective - Vital Signs Vital signs: Vital Signs Temp 98.2 F 07/06/17 15:42 Pulse 86 07/06/17 15:42 Resp 16 07/06/17 15:42 BP 132/68 07/06/17 15:42 Pulse Ox 94 L 07/06/17 15:42 Intake & Output 07/05/17 07/06/17 07/06/17 18:59 06:59 18:59 Intake Total 389.73 450 582 Output Total 1050 400 Balance -660.27 450 182 Weight 118.3 kg 118.5 kg Intake: IV 153.73 Intake, IV Titration 325 Amount Sodium Chloride 0.9% 1, 325 000 ml @ 75 mls/hr IV . [id number] LOU Rx#:[id number] Oral 236 125 582 Output: Urine 1050 400 Other: Voiding Method Urinal Urinal # Voids 3 1 - Exam PHYSICAL EXAMINATION: HEENT: Head is atraumatic, normocephalic. Pupils equal, round. Neck is supple. There is no elevated jugular venous pressure. HEART EXAMINATION: Heart S1, S2 normal. No murmur or gallop heard. CHEST EXAMINATION: Lungs are clear to auscultation and precussion. No chest wall tenderness is noted on palpation or with deep breathing. ABDOMEN: Soft, nontender. Bowel sounds are heard. No organomegaly noted. Right groin soft, no evidence of any hematoma. EXTREMITIES: 2+ peripheral pulses with no evidence of peripheral edema and no calf tenderness noted. NEUROLOGIC patient is awake, alert and oriented -3. . - Labs CBC & Chem 7: 07/06/17 05:43 07/06/17 05:43 Labs: Abnormal Lab Results - Last 24 Hours (Table) 07/05/17 07/05/17 07/06/17 Range/Units 16:46 21:13 05:43 RBC (4.30-5.90) m/uL Hgb (13.0-17.5) gm/dL Hct (39.0-53.0) % Glucose (74-99) mg/dL POC Glucose (mg/dL) 184 H 294 H (75-99) mg/dL Hemoglobin A1c 10.2 H (4.0-6.0) % 07/06/17 07/06/17 07/06/17 Range/Units 05:43 05:43 06:09 RBC 4.19 L (4.30-5.90) m/uL Hgb 12.3 L (13.0-17.5) gm/dL Hct 36.3 L (39.0-53.0) % Glucose 141 H (74-99) mg/dL POC Glucose (mg/dL) 148 H (75-99) mg/dL Hemoglobin A1c (4.0-6.0) % 07/06/17 Range/Units 11:45 RBC (4.30-5.90) m/uL Hgb (13.0-17.5) gm/dL Hct (39.0-53.0) % Glucose (74-99) mg/dL POC Glucose (mg/dL) 256 H (75-99) mg/dL Hemoglobin A1c (4.0-6.0) % Assessment and Plan Plan: Assessment and plan #1 acute myocardial infarction #2 known history of coronary artery disease with prior circumflex and LAD stenting #3 hypertension #4 diabetes #5 hyperlipidemia Plan Patient underwent angioplasty and stenting of the circumflex artery. He was advised to be up walking in the hallway today. Plan for possible discharge home in 24 hours if stable. DNP note has been reviewed, I agree with a documented findings and plan of care. Patient was seen and examined.
[2017-07-06 16:55] LABS: Glucose,Whole Blood 219 mg/dL (75-99)
[2017-07-06] MEDS: ATORVASTATIN 80 MG TAB PO SCH (21:14)
[2017-07-06 21:23] LABS: Glucose,Whole Blood 239 mg/dL (75-99)
[2017-07-06] MEDS: INSULIN DETEMIR 100 UNIT/ML 10 ML VIAL SQ SCH (21:32)
[2017-07-07 06:13] LABS: Glucose,Whole Blood 187 mg/dL (75-99)
[2017-07-07] MEDS: INSULIN ASPART 100 UNIT/ML 1 ML 10 ML VIAL SQ SCH ×2 (06:56→12:18)
--- NOTE | 2017-07-07 07:59 | P.DS ---
Providers Date of admission: 07/04/17 23:57 Attending physician: Wilver Najera Consults: 07/04/17 23:57 Consult Physician Urgent Consulting Provider: Cardiology Jaime Consult Reason/Comments: Elevated troponin, near-syncope Do you want consulting provider notified?: Yes 07/05/17 12:46 Consult Physician Routine Consulting Provider: Cardiology Jaime Consult Reason/Comments: Post Interventional patient Do you want consulting provider notified?: Already Contacted Primary care physician: Wilver Najera - Discharge Diagnosis(es) (1) Diabetes Current Visit: Yes Status: Acute (2) Elevated troponin Current Visit: Yes Status: Acute (3) Near syncope Current Visit: Yes Status: Acute Hospital Course: This is a discharge summary on a 67-year-old white male essentially admitted for syncope. Found to have element of acute myocardial infraction. The patient had cardiac catheterization with stenting and is now discharged in stable condition to follow-up with me in about 5-7 days. Patient Condition at Discharge: Stable Plan - Discharge Summary New Discharge Prescriptions: New Insulin Detemir [Levemir] 26 unit SQ HS syr Continue DULoxetine HCL [Cymbalta] 60 mg PO DAILY Methocarbamol [Robaxin] 750 mg PO BID PRN PRN Reason: Pain Metoprolol Succinate [Toprol XL] 50 mg PO DAILY Insulin Glargine [Lantus] 76 unit SQ QAM Insulin Aspart [NovoLOG Flexpen] See Protocol SQ AC-TID PRN PRN Reason: Blood Sugar - High Atorvastatin [Lipitor] 80 mg PO HS #30 tab Nitroglycerin Sl Tabs [Nitrostat] 0.4 mg SUBLINGUAL Q5M PRN #25 tab PRN Reason: Chest Pain metFORMIN HCL [Glucophage] 1,500 mg PO AC-SUPPER #0 traMADol HCL [Ultram] 50 mg PO Q6HR PRN PRN Reason: Pain Clopidogrel Bisulfate [Plavix] 75 mg PO DAILY Lisinopril [Zestril] 2.5 mg PO DAILY Albuterol Inhaler [Ventolin Hfa Inhaler] 1 - 2 puff INHALATION RT-Q6H PRN PRN Reason: Shortness Of Breath Discharge Medication List DULoxetine HCL [Cymbalta] 60 mg PO DAILY 09/22/15 [History] Insulin Aspart [NovoLOG Flexpen] See Protocol SQ AC-TID PRN 09/22/15 [History] Insulin Glargine [Lantus] 76 unit SQ QAM 09/22/15 [History] Methocarbamol [Robaxin] 750 mg PO BID PRN 09/22/15 [History] Metoprolol Succinate [Toprol XL] 50 mg PO DAILY 09/22/15 [History] Atorvastatin [Lipitor] 80 mg PO HS #30 tab 09/25/15 [Rx] Nitroglycerin Sl Tabs [Nitrostat] 0.4 mg SUBLINGUAL Q5M PRN #25 tab 09/25/15 [Rx ] metFORMIN HCL [Glucophage] 1,500 mg PO AC-SUPPER #0 09/25/15 [Rx] Albuterol Inhaler [Ventolin Hfa Inhaler] 1 - 2 puff INHALATION RT-Q6H PRN [History] Clopidogrel Bisulfate [Plavix] 75 mg PO DAILY 07/05/17 [History] Lisinopril [Zestril] 2.5 mg PO DAILY 07/05/17 [History] traMADol HCL [Ultram] 50 mg PO Q6HR PRN 07/05/17 [History] Insulin Detemir [Levemir] 26 unit SQ HS syr 07/07/17 [Rx] Follow up Appointment(s)/Referral(s): Rogelio Ernandez MD [STAFF PHYSICIAN] - 1 Week Wilver Najera MD [Primary Care Provider] - 1-2 days Patient Instructions/Handouts: *[facility] - After Heart Catheterization - [employer] Instructions, Heart Healthy Diet (DC), Coronary Intravascular Stent Placement (DC)
[2017-07-07 08:17] VITALS: RESP 18
[2017-07-07] MEDS: DULoxetine HCL 60 MG CAPSULE.DR PO SCH (08:36)
[2017-07-07] MEDS: ASPIRIN 81 MG PO SCH (08:36)
[2017-07-07] MEDS: CLOPIDOGREL 75 MG TAB PO SCH (08:36)
[2017-07-07] MEDS: METOPROLOL SUCCINATE (ER) 50 MG TAB.ER.24H PO SCH (08:36)
[2017-07-07] MEDS: VIT A,C & E-LUTEIN-MINERALS 1 EACH TAB PO SCH (08:37)
[2017-07-07 11:36] VITALS: BP 152/72; PULSE 86; TEMP 98.3
[2017-07-07 12:02] LABS: Glucose,Whole Blood 257 mg/dL (75-99)
--- NOTE | 2017-07-07 15:44 | P.PN ---
Subjective Progress Note Date: 07/07/17 Principal diagnosis: Inferior wall [place] This is a 67-year-old gentleman who follows with Dr. Nic Ernandez in the office. He has a known history of coronary artery disease with prior PCI, diabetes, hyperlipidemia, patient underwent stenting of the first obtuse marginal as well as PCI of the LAD in September 2015, hypertension history, he presents to the hospital with a near syncopal episode. According to the patient , he was at the [employer], he had finished bowling, and states that he could not find his shoes. He states that he walked back out to the truck to see if his [employer] shoes were out there, patient states he became very lightheaded and dizzy and felt as though he may pass out. He did go down to his knees. According to the patient he did not pass out completely. He does state that these symptoms remind him of what he has had in the past prior to his angioplasty. He denies any overt chest discomfort at that time. Initial EKG on presentation here showed a sinus tachycardia with ST elevation noted in the inferior leads, EKG performed this morning shows a normal sinus rhythm with T-wave inversion in the inferior leads. Chest x-ray does not reveal any acute cardiopulmonary disease. Blood pressure on arrival here 162/90 with a heart rate of 105, 99% on room air. Blood pressure this morning 136/80, heart rate in the 90s, 97% on room air. Laboratory data was reviewed, sodium 141, potassium 3.6, BUN 18, creatinine 0.7. Magnesium 1.9. Troponins 0.024, 3.9. Cholesterol 247, LDL 171, HDL 44, triglycerides 151. At the time of my examination this morning, patient complains of some left shoulder and scapula discomfort. Mild dizziness. No chest discomfort. 07/06/2017 Patient was taken to the cardiac catheterization lab yesterday where he underwent angioplasty and stenting of the circumflex artery. He was seen and examined this morning, denies any chest pain or difficulty in breathing. Right groin is soft. Hemodynamically stable. 07/07/2017 A shunt seen and examined this morning, feels well, denies any chest pain or difficulty in breathing. He's been up ambulating without any difficulty. From cardiology's perspective, he may be able to be discharged home today, we will make him a follow-up appointment to see Dr. VIRAJ Ernandez in the office post discharge. Objective - Vital Signs Vital signs: Vital Signs Temp 98.3 F 07/07/17 11:33 Pulse 86 07/07/17 11:33 Resp 18 07/07/17 11:33 BP 152/72 07/07/17 11:33 Pulse Ox 100 07/07/17 11:33 Intake & Output 07/06/17 07/07/17 07/07/17 18:59 06:59 18:59 Intake Total 582 300 360 Output Total 400 Balance 182 300 360 Weight 118.5 kg Intake: Intake, IV Titration 300 Amount Sodium Chloride 0.9% 1, 300 000 ml @ 75 mls/hr IV . [id number] LOU Rx#:[id number] Oral 582 360 Output: Urine 400 Other: Voiding Method Urinal # Voids 1 4 - Exam PHYSICAL EXAMINATION: HEENT: Head is atraumatic, normocephalic. Pupils equal, round. Neck is supple. There is no elevated jugular venous pressure. HEART EXAMINATION: Heart S1, S2 normal. No murmur or gallop heard. CHEST EXAMINATION: Lungs are clear to auscultation and precussion. No chest wall tenderness is noted on palpation or with deep breathing. ABDOMEN: Soft, nontender. Bowel sounds are heard. No organomegaly noted. Right groin soft, no evidence of any hematoma. EXTREMITIES: 2+ peripheral pulses with no evidence of peripheral edema and no calf tenderness noted. NEUROLOGIC patient is awake, alert and oriented -3. . - Labs CBC & Chem 7: 07/06/17 05:43 07/06/17 05:43 Labs: Abnormal Lab Results - Last 24 Hours (Table) 07/06/17 07/06/17 07/06/17 Range/Units 05:43 16:42 21:20 POC Glucose (mg/dL) 219 H 239 H (75-99) mg/dL Hemoglobin A1c 10.2 H (4.0-6.0) % 07/07/17 07/07/17 Range/Units 05:55 11:35 POC Glucose (mg/dL) 187 H 257 H (75-99) mg/dL Hemoglobin A1c (4.0-6.0) % Assessment and Plan Plan: Assessment and plan #1 acute myocardial infarction #2 known history of coronary artery disease with prior circumflex and LAD stenting #3 hypertension #4 diabetes #5 hyperlipidemia Plan Patient underwent angioplasty and stenting of the circumflex artery. He may be able to be discharged home today from cardiology's perspective. Patient will be discharged home with aspirin 81 mg daily, Lipitor 80 mg daily, Plavix 5 mg daily, Toprol-XL 50 mg daily, and sublingual nitroglycerin as needed for chest pain. Follow-up appointment with Dr. Nic Ernandez in the office in one week. DNP note has been reviewed, I agree with a documented findings and plan of care. Patient was seen and examined.
== END 2017-07-07 13:56 | disposition home or self-care (01) | DRG 247 ==
LOC: EC 22:06 → 6SEL 23:57
PROVIDERS: ADMIT Family Medicine; ATTEND Family Medicine
PROC: 4A023N7 Measurement of Cardiac Sampling and Pressure, Left Heart, Percutaneous Approach (ICD-10-PCS; principal; 2017-07-06)
PROC: 027034Z Dilation of Coronary Artery, One Artery with Drug-eluting Intraluminal Device, Percutaneous Approach (ICD-10-PCS; 2017-07-06)
PROC: B2111ZZ Fluoroscopy of Multiple Coronary Arteries using Low Osmolar Contrast (ICD-10-PCS; 2017-07-06)
DX: I21.19 ST elevation (STEMI) myocardial infarction involving other coronary artery of inferior wall (principal); E11.42 Type 2 diabetes mellitus with diabetic polyneuropathy; E11.319 Type 2 diabetes mellitus with unspecified diabetic retinopathy without macular edema; I25.110 Atherosclerotic heart disease of native coronary artery with unstable angina pectoris; T38.3X6A Underdosing of insulin and oral hypoglycemic [antidiabetic] drugs, initial encounter; F43.10 Post-traumatic stress disorder, unspecified; M19.90 Unspecified osteoarthritis, unspecified site; E78.5 Hyperlipidemia, unspecified; R00.0 Tachycardia, unspecified; I10 Essential (primary) hypertension; R55 Syncope and collapse; R29.6 Repeated falls; Z79.4 Long term (current) use of insulin; Z79.82 Long term (current) use of aspirin; Z79.899 Other long term (current) drug therapy; Z80.42 Family history of malignant neoplasm of prostate; Z87.891 Personal history of nicotine dependence; Z90.49 Acquired absence of other specified parts of digestive tract; Z90.89 Acquired absence of other organs; Z95.5 Presence of coronary angioplasty implant and graft; Z87.19 Personal history of other diseases of the digestive system; Z98.41 Cataract extraction status, right eye; Z91.19 Patient's noncompliance with other medical treatment and regimen
CPT/HCPCS: 36415; 71046; 80048; 80053; 80061; 82550; 82553; 83036; 83735; 84484; 85025; 85610; 85730; 92921; 93005; 93306; 93458; 93880; 94760; 96374; 99291

== ENCOUNTER → 2018-09-06 | Outpatient (CLI) | payer BC ==
--- NOTE | 2018-09-06 22:21 | MR ---
EXAMINATION TYPE: MR brain wo/w con DATE OF EXAM: 09/06/2018 COMPARISON: None HISTORY: cognitive impairment, cerebral infarction. I 63.4, I 63.9 CONTRAST: Performed utilizing 10 mL intravenous Gadavist gadolinium contrast. TECHNIQUE: Multiplanar, multiecho imaging on a 3.0 Génesis magnet is performed through the brain. Stud y is performed within 24 hours of arrival to the hospital. The craniovertebral junction is normal. The pituitary is normal. Diffusion-weighted imaging is performed. No abnormal hyperintensity is present to suggest an acute i ntracranial infarct or acute ischemic change. There is periventricular white matter hyperintensity, likely on the basis of chronic white matter ponce nges. Deep white matter punctate changes are present bilaterally. Subcortical white matter changes ar e noted. Following contrast administration, no abnormal enhancement is evident. Ventricles and sulci are prominent for the patient age. Atrophy is present. IMPRESSIONS: 1. Scattered deep white matter changes with atrophy. Findings can be compatible with chronic white ma tter ischemic changes. This is greater than expected for patient age.
== END ==
LOC: RADMRIMAIN 09:09
PROVIDERS: ATTEND Psychiatry & Neurology Neurology
DX: G31.9 Degenerative disease of nervous system, unspecified (principal); R90.89 Other abnormal findings on diagnostic imaging of central nervous system
CPT/HCPCS: 70553; A9585

== ENCOUNTER → 2019-12-03 | Outpatient (CLI) | payer BC ==
--- NOTE | 2019-12-03 22:32 | US ---
EXAMINATION TYPE: US kidneys/renal and bladder DATE OF EXAM: 12/03/2019 COMPARISON: NONE CLINICAL HISTORY: R80.9 PROTEINURIA. proteinuria EXAM MEASUREMENTS: Right Kidney: 12.6 x 6.4 x 5.9 cm Left Kidney: 13.0 x 6.1 x 5.2 cm Right Kidney: no evidence of hydronephrosis Left Kidney: no evidence of hydronephrosis Bladder: not fully distended, appears wnl Bilateral Jets seen: no Urinary bladder is visualized is sonolucent IMPRESSION: 1. No suspicious acute changes renal ultrasound
== END | disposition home or self-care (01) ==
LOC: RADUSWWP 15:54
PROVIDERS: ATTEND Family Medicine
DX: R80.9 Proteinuria, unspecified (principal)
CPT/HCPCS: 76770

== ENCOUNTER → 2021-10-14 | Outpatient (CLI) | payer BC ==
[2021-10-14 15:01] LABS: HCT 42.8 % (39.6-50.0); HGB 13.7 g/dL (13.0-17.0); MCH 28.2 pg (27.0-32.0); MCV 88.2 fL (80.0-97.0); Mean Platelet Volume 10.4 fL (9.5-12.2); NRBC Per 100 WBC 0 /100 WBCS (0.0-0.0); Platelet Count 242 X 10*3/uL (140-440); RBC 4.85 X 10*6/uL (4.40-5.60); RDW 13.9 % (11.5-14.5); WBC 8.71 X 10*3/uL (4.50-10.00)
[2021-10-14 19:47] LABS: Anion Gap 10.1 mmol/L (10.00-18.00); BUN/Creat Ratio 14.95 Ratio (12.00-20.00); Blood Urea Nitrogen 11.2 mg/dL (9.0-27.0); Calcium 9.5 mg/dL (8.7-10.3); Carbon Dioxide 27.4 mmol/L (20.0-27.5); Non-African American GFR(CKD) 92.3 (60.0-200.0); Potassium 4.3 mmol/L (3.5-5.5)
== END | disposition home or self-care (01) ==
LOC: LABWHC1 10:07
PROVIDERS: ATTEND Internal Medicine Interventional Cardiology
DX: E10.9 Type 1 diabetes mellitus without complications (principal); I25.10 Atherosclerotic heart disease of native coronary artery without angina pectoris
CPT/HCPCS: 36415; 80048; 85027

== ENCOUNTER 2021-10-22 09:26 | Day surgery (SDC) | payer BC, MEDICARE ==
[2021-10-20 11:38] VITALS: BMI 29.4
[~2021-10-22 09:26] MED LIST: ALPRAZolam 0.25 MG TAB PO PRN; ALPRAZolam 0.5 MG TAB PO PRN; ASPIRIN 325 MG TAB PO STA; ATORVASTATIN 80 MG TAB PO STA; HEPARIN SODIUM,PORCINE 10,000 UNIT in SODIUM CHLORIDE 0.9% 1,000 ML IRRIGATION PRN; HEPARIN SODIUM,PORCINE 2,500 UNIT in SODIUM CHLORIDE 0.9% 250 ML IRRIGATION PRN; NITROGLYCERIN SL TABS 0.4 MG TAB SUBLINGUAL PRN
[2021-10-22] MEDS: SODIUM CHLORIDE 0.9% 1,000 ML in EMPTY BAG 1 BAG IV SCH ×3 (09:50→22:00)
[2021-10-22 10:00] LABS: Glucose,Whole Blood 71 mg/dL (75-99)
[2021-10-22] MEDS ORDERED: MIDAZOLAM 2 MG/2 ML VIAL IV ONE (11:07)
[2021-10-22] MEDS: LIDOCAINE 1% INJ 10MG/ML (30 ML VIAL-PF) SQ ONE ×2 (11:13→11:23)
[2021-10-22] MEDS ORDERED: HEPARIN SODIUM 1,000 UN/ML (10ML VL) ONE (11:40)
[2021-10-22] MEDS ORDERED: HEPARIN SODIUM 1,000 UN/ML (10ML VL) IV ONE (11:42)
[2021-10-22] MEDS ORDERED: IOPAMIDOL-370 100ML BTL INJ ONE ×2 (11:52→12:02)
[2021-10-22] MEDS ORDERED: NITROGLYCERIN 1000MCG/10ML SYRINGE INTRACORON ONE (12:01)
[2021-10-22] MEDS ORDERED: CLOPIDOGREL 75 MG TAB PO ONE (12:22)
[2021-10-22] MEDS ORDERED: CLOPIDOGREL 75 MG TAB ONE (12:23)
[2021-10-22 12:34] LABS: Glucose,Whole Blood 53 mg/dL (75-99)
[2021-10-22] MEDS ORDERED: NITROGLYCERIN SL TABS 0.4 MG TAB SUBLINGUAL PRN (14:42)
[2021-10-22] MEDS ORDERED: ALBUTEROL HFA INHALER INHALATION PRN (14:42)
--- NOTE | 2021-10-22 14:53 | CC ---
CARDIAC CATHETERIZATION REPORT DATE OF SERVICE: 10/22/2021. PROCEDURE: 1. Left heart catheterization and coronary angiography. 2. Percutaneous transluminal coronary angioplasty and stenting of a restenotic lesion at the proximal portion of a previously stented mid LAD with a drug-eluting stent. PERFORMED BY: Dr. Galileo Ernandez. Moderate conscious sedation time was 57 minutes. Patient was administered Versed. Oxygen saturation, hemodynamics and EKG were monitored closely. CLINICAL INFORMATION: Mr. Fermin is a 71-year-old gentleman with a known history of type 2 diabetes, hypertension, hyperlipidemia. He underwent stenting of a very difficult LAD that was performed in 2016. This was a highly calcified LAD that was stented after performing orbital atherectomy. I also did the first obtuse marginal branch that was subtotally occluded at that time. Patient has been having increasing symptoms of angina and also has been requiring to take sublingual nitroglycerin. After optimizing medical therapy in view of ongoing chest pain he was advised cardiac cath after due discussion. The last stent that I performed was that of a proximal/mid circumflex immediately after a first obtuse marginal which was heavily calcified, and I also did stenting of the first obtuse marginal. PROCEDURE NOTE: Under local anesthesia and strict aseptic precautions, I tried to gain access to right femoral artery which was heavily calcified. I could not advance the wire. I therefore switched over the left femoral approach. Using a micropuncture needle technique, I placed a 6-Vietnamese introducer in the left femoral artery. Using standard Milind catheters I performed coronary angiography, and the same right catheter was used to check LV pressures. Following this, I went ahead and proceeded with PCI of mid LAD that was a restenotic lesion. CARDIAC CATHETERIZATION FINDINGS: The left ventricular end-diastolic pressure was 6 to 7 mmHg without any significant gradient across the aortic valve. CORONARY ANGIOGRAPHY FINDINGS: RIGHT CORONARY ARTERY: This is a small nondominant vessel that was subtotally injected, has mild to moderate diffuse disease throughout. It gives off two branches. No change from previous study from 2018. LEFT MAIN CORONARY ARTERY: Short, patent vessel, calcified, has about a 20% distal lesion. Bifurcates into LAD and circumflex. LEFT ANTERIOR DESCENDING CORONARY ARTERY: Good-caliber vessel extends along the anterior wall. Mid portion of the LAD which was stented in 2016 is widely patent in the distal two thirds, but the proximal one third has a restenotic 95% lesion, and this is a culprit vessel. The vessel runs all the way to the apex, giving off septal and diagonal branches. There are minor diffuse irregularities but no other critical lesions other than the mid LAD restenotic lesion in the proximal portion of a previously placed stent. LEFT POSTERIOR CIRCUMFLEX CORONARY ARTERY: Dominant vessel, gives off a very high first obtuse marginal that is patent that was stented and dilated in the past. There is continuation of circumflex in the proximal portion with a previous stent, widely patent, with no more than 35% stenosis. The rest of circumflex gives off multiple branches. No significant disease. Circumflex stents are patent. Overall vessel is patent without significant disease. Minor diffuse irregularities. It is a dominant vessel. RECOMMENDATIONS: I recommended PCI of mid LAD and proceeded to perform this in the same setting. IMPRESSION: This patient has a widely patent circumflex that was stented. Both the first obtuse marginal and the mid circumflex are patent. He has a left-dominant system, slightly lower filling pressures, no gradient. Diffusely disease nondominant RCA unchanged. Mid LAD has a restenotic lesion in the proximal portion of a previous stent. Left main has a 20% distal lesion and bifurcates. I recommended PCI of mid LAD and proceeded to perform this in the same setting. PERCUTANEOUS CORONARY INTERVENTION PROCEDURE DETAILS: I used a Voda 3.5 type guide catheter to cannulate the left coronary artery and I used a Whisper wire and kept it distally. Predilatation was performed with a 2.5 caliber NC Trek balloon of 12 mm length. I then deployed a 3.0 caliber 12 mm Xience stent in the proximal portion of the stent and also proximal to the previous stent. Subsequently I used a 2.75 caliber NC Trek balloon and dilated the entire previously placed stent, which was a 2.5 stent. Excellent angiographic result was achieved. Patient received heparin intravenously and his ACT was 248. Additional 1500 units of heparin was given and ACT went up to 329. Patient received 300 mg of Plavix. He was already on Plavix. Excellent angiographic result without complication was achieved. I used Angio-Seal to secure hemostasis. Results were discussed with the patient and his , and I expect he will be discharged tomorrow morning if he remains stable. Patient is advised to be on dual antiplatelet therapy for a total minimum duration of 12 months. MMODL / IJN: [id number] /
[2021-10-22] MEDS: SODIUM CHLORIDE 0.9% 1,000 ML IV SCH (16:31)
[2021-10-22 16:57] LABS: Glucose,Whole Blood 116 mg/dL (75-99)
[2021-10-22 20:29] LABS: Glucose,Whole Blood 177 mg/dL (75-99)
[2021-10-22] MEDS ORDERED: INSULIN DETEMIR (LEVEMIR) 100 UNIT/ML SYR SQ SCH (21:00)
[2021-10-22] MEDS ORDERED: ATORVASTATIN 80 MG TAB PO SCH (21:00)
[2021-10-22] MEDS: METOPROLOL SUCCINATE (ER) 50 MG TAB.ER.24H PO SCH (21:59)
[2021-10-22] MEDS: MEMANTINE 10 MG TAB PO SCH (21:59)
[2021-10-22] MEDS: CARBIDOPA-LEVODOPA ER 50-200MG 1 EACH TABLET.ER PO SCH (21:59)
[2021-10-22] MEDS: DONEPEZIL 10 MG TAB PO SCH (21:59)
[2021-10-23] MEDS: SODIUM CHLORIDE 0.9% 1,000 ML IV SCH (01:56)
[2021-10-23 03:35] VITALS: RESP 18
[2021-10-23 07:19] LABS: Glucose,Whole Blood 63 mg/dL (75-99)
[2021-10-23] MEDS: METOPROLOL SUCCINATE (ER) 50 MG TAB.ER.24H PO SCH (07:28)
[2021-10-23] MEDS: CARBIDOPA-LEVODOPA ER 50-200MG 1 EACH TABLET.ER PO SCH (07:30)
[2021-10-23] MEDS: DONEPEZIL 10 MG TAB PO SCH (07:30)
[2021-10-23] MEDS: MEMANTINE 10 MG TAB PO SCH (07:32)
[2021-10-23 07:33] LABS: Glucose,Whole Blood 59 mg/dL (75-99)
[2021-10-23 07:50] LABS: Glucose,Whole Blood 60 mg/dL (75-99)
[2021-10-23 08:10] LABS: Glucose,Whole Blood 105 mg/dL (75-99)
[2021-10-23 08:12] LABS: African American GFR (CKD) >90 (>60 ml/min/1.73 sqM); Anion Gap 7 mmol/L; Blood Urea Nitrogen 15 mg/dL (9-20); Calcium 8.7 mg/dL (8.4-10.2); Carbon Dioxide 28 mmol/L (22-30); Chloride 105 mmol/L (98-107); Glucose 77 mg/dL (74-99); Non-African American GFR(CKD) >90 (>60 ml/min/1.73 sqM); Potassium 3.9 mmol/L (3.5-5.1); Sodium 140 mmol/L (137-145)
[2021-10-23 08:14] LABS: Basophils # (A) 0.1 k/uL (0-0.2); Basophils % (A) 1 %; Eosinophils # (A) 0.3 k/uL (0-0.7); Eosinophils % (A) 3 %; HCT 43.4 % (39.0-53.0); HGB 14.1 gm/dL (13.0-17.5); Lymphocytes # (A) 1.6 k/uL (1.0-4.8); Lymphocytes % (A) 18 %; MCH 28.8 pg (25.0-35.0); MCHC 32.5 g/dL (31.0-37.0); MCV 88.6 fL (80.0-100.0); Mean Platelet Volume 7.8; Monocytes # (A) 0.6 k/uL (0-1.0); Monocytes % (A) 7 %; Neutrophils # (A) 6.1 k/uL (1.3-7.7); Neutrophils % (A) 69 %; Platelet Count 243 k/uL (150-450); RBC 4.89 m/uL (4.30-5.90); RDW 14.6 % (11.5-15.5); WBC 8.9 k/uL (3.8-10.6)
[2021-10-23 08:16] VITALS: BP 113/66; PULSE 62; TEMP 97.5
[2021-10-23] MEDS ORDERED: ASPIRIN 81 MG PO SCH (09:00)
[2021-10-23] MEDS ORDERED: CLOPIDOGREL 75 MG TAB PO SCH (09:00)
[2021-10-23] MEDS ORDERED: NON FORMULARY DRUG (Empagliflozin [Jardiance] 25 MG Tablet) PO SCH (09:00)
[2021-10-23] MEDS ORDERED: DULoxetine HCL 60 MG CAPSULE.DR PO SCH (09:00)
[2021-10-23] MEDS ORDERED: MULTIVITAMINS, THERA 1 EACH TAB PO SCH (09:00)
[2021-10-23 12:11] LABS: Glucose,Whole Blood 125 mg/dL (75-99)
--- NOTE | 2021-10-23 18:26 | DS ---
DISCHARGE SUMMARY DATE OF ADMISSION: 10/22/2021 DATE OF DISCHARGE: 10/23/2021 DIAGNOSIS: 1. Unstable angina. 2. History of coronary artery disease with prior percutaneous coronary intervention. 3. Diabetes. 4. Hypertension. 5. Hyperlipidemia. 6. Parkinsonism. Mr. Fermin was admitted to the hospital for a cardiac cath and possible PCI. Study revealed that he had a restenotic lesion in the LAD that was initially stented in 2016. I performed stenting of this vessel and also dilated the previously stented segment with excellent result. Post-procedure course is uneventful. He is resting comfortably without symptoms. His right groin is clean and dry with a good pulse. Vitals are stable. EKG is unremarkable. Labs are unremarkable. S1, S2 heard normally. Short systolic murmur is audible. Lungs revealed decent air entry. Abdomen is soft, nontender. Lower extremities reveal normal pulses. No edema. Central nervous system is normal. RECOMMENDATIONS: Patient will be discharged today and I will see him in the office on the 10th of this month. Discharge instructions regarding activity, diet and medications were given. I expect the patient to be discharged today. MMODL / IJN: [id number] /
[2021-10-25] MEDS ORDERED: NON FORMULARY DRUG (Dulaglutide [Trulicity] 0.75 MG/0.5 ML Each) SQ SCH (14:42)
== END 2021-10-23 12:38 | disposition home or self-care (01) ==
LOC: CATHCVL 09:26 → 6NMEDSUR 12:11 → CATHCVL 10-23 12:38
PROVIDERS: ATTEND Internal Medicine Interventional Cardiology
DX: I25.119 Atherosclerotic heart disease of native coronary artery with unspecified angina pectoris (principal); E11.9 Type 2 diabetes mellitus without complications; E78.5 Hyperlipidemia, unspecified; I10 Essential (primary) hypertension; Z79.02 Long term (current) use of antithrombotics/antiplatelets; Z95.5 Presence of coronary angioplasty implant and graft; Z20.822 Contact with and (suspected) exposure to COVID-19
CPT/HCPCS: 93458; 80048; 85025; 87635; C9600; C1760; C1769 ×3; C1887; C1725 ×2; C1894; C1874; J2250; J2001; J1644; Q9967

== ENCOUNTER 2022-04-15 14:43 | Observation (INO) | payer BC ==
[2022-04-15 15:31] LABS: ALT 11 U/L (4-49); AST 21 U/L (17-59); African American GFR (CKD) >90 (>60 ml/min/1.73 sqM); Albumin 4.5 g/dL (3.5-5.0); Alcohol <10 mg/dL; Alkaline Phosphatase 92 U/L (38-126); Anion Gap 6 mmol/L; Blood Urea Nitrogen 18 mg/dL (9-20); Calcium 9.5 mg/dL (8.4-10.2); Carbon Dioxide 28 mmol/L (22-30); Chloride 104 mmol/L (98-107); Glucose 148 mg/dL (74-99); Lipase 302 U/L (23-300); Non-African American GFR(CKD) >90 (>60 ml/min/1.73 sqM); Potassium 5.3 mmol/L (3.5-5.1); Sodium 138 mmol/L (137-145); Total Protein 6.9 g/dL (6.3-8.2)
--- NOTE | 2022-04-15 15:36 | CT ---
EXAMINATION TYPE: CT brain wo con DATE OF EXAM: 04/15/2022 COMPARISON: None HISTORY: AMS, new onset of seizures. CT DLP: 1209.4 mGycm Automated exposure control for dose reduction was used. Images obtained of the brain with no contrast. There is cerebral cortical atrophy. There is no mass effect or midline shift. No sign of intracranial hemorrhage. Calvarium is intact. There is normal aeration of the mastoid sinuses. IMPRESSION: Mild atrophy. No acute intracranial abnormality.
--- NOTE | 2022-04-15 15:40 | XR ---
EXAMINATION TYPE: XR chest 2V DATE OF EXAM: 04/15/2022 COMPARISON: 07/04/2017 HISTORY: Seizure TECHNIQUE: FINDINGS: Heart is normal. Lungs are clear of consolidation. There is no heart failure. There are no hilar masses. There are small linear density lateral left lung base. There are chest leads. There is minor spurring in the thoracic spine. IMPRESSION: Mild subsegmental atelectasis appears new compared to the old exam. Normal heart.
[2022-04-15 15:57] LABS: Basophils # (A) 0.1 k/uL (0-0.2); Basophils % (A) 1 %; Eosinophils # (A) 0.2 k/uL (0-0.7); Eosinophils % (A) 2 %; HCT 41.1 % (39.0-53.0); HGB 14.2 gm/dL (13.0-17.5); Lymphocytes % (A) 20 %; MCH 30.2 pg (25.0-35.0); MCHC 34.7 g/dL (31.0-37.0); Mean Platelet Volume 8.2; Monocytes # (A) 0.5 k/uL (0-1.0); Monocytes % (A) 5 %; Neutrophils % (A) 71 %; Platelet Count 210 k/uL (150-450); RBC 4.72 m/uL (4.30-5.90); RDW 13.6 % (11.5-15.5); WBC 9.9 k/uL (3.8-10.6)
--- NOTE | 2022-04-15 16:25 | ED ---
General Adult HPI - General Chief complaint: Seizure Stated complaint: seizures Time Seen by Provider: 04/15/22 14:53 Source: patient Mode of arrival: EMS Limitations: no limitations - History of Present Illness Initial comments: This is a 71-year-old male who presents emergency department via EMS after a witnessed seizure. The patient is a past medical history including diabetes, dementia, Parkinson's and heart disease. The patient's was present at the bedside and provided history. It was reported that the patient was outside in the barn when his [id number] witnessed him fall into a chair and had seizure-like activity for approximately 30 seconds. The patient was confused after this and aspirin EMS was called. The patient did not hit his head and did not lose consciousness. The patient himself was ANO 2 when I evaluated him and they did confirm that this is more confused than his baseline however was improving since the initial episode of a seizure. The patient has no history of a seizure has never had a seizure in the past. The patient's did report that the patient had been increasingly confused since waking up this morning but did not complain of any acute pain or distress to her today. On my evaluation, the patient did not complain of any pain nor any headache or lightheadedness or dizziness. The patient was ANO 2 and cannot provide further history. - Related Data Home Medications Medication Instructions Recorded Confirmed DULoxetine HCL [Cymbalta] 60 mg PO DAILY 09/22/15 04/15/22 Metoprolol Succinate [Toprol XL] 50 mg PO BID 09/22/15 04/15/22 Clopidogrel Bisulfate [Plavix] 75 mg PO DAILY 07/05/17 04/15/22 Carbidopa-Levodopa ER 50-200Mg 1 tab PO BID 10/20/21 04/15/22 [Sinemet CR 50-200 mg] Donepezil HCl [Aricept] 10 mg PO BID 10/20/21 04/15/22 Dulaglutide [Trulicity] 0.75 mg SQ TURNER 10/20/21 04/15/22 Empagliflozin [Jardiance] 25 mg PO DAILY 10/20/21 04/15/22 Insulin Degludec [Tresiba] 50 units SQ HS 10/20/21 04/15/22 Memantine [Namenda] 10 mg PO BID 10/20/21 04/15/22 Multivit-Min/Folic/Vit K/Lycop 1 tab PO DAILY 10/20/21 04/15/22 [Men's Multivitamin Tablet] metFORMIN HCL ER [Glucophage XR] 1,500 mg PO W/SUPPER 04/15/22 04/15/22 Previous Rx's Medication Instructions Recorded Atorvastatin [Lipitor] 80 mg PO HS #30 tab 09/25/15 Aspirin 81 mg PO DAILY #30 chew 07/07/17 Nitroglycerin Sl Tabs [Nitrostat] 0.4 mg SUBLINGUAL Q5M PRN #25 tab 07/07/17 Allergies Allergy/AdvReac Type Severity Reaction Status Date / Time No Known Allergies Allergy Verified 04/15/22 16:45 Review of Systems ROS Statement: Those systems with pertinent positive or pertinent negative responses have been documented in the HPI. ROS Other: All systems not noted in ROS Statement are negative. 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 09/24/15 PCI with stent. Other surgical hx: 2001 cardiac cath, R shoulder surgery, umbilical hernia repair, surgery for sleep apnea & cataract R eye. COLONOSCOPY, Past Anesthesia/Blood Transfusion Reactions: Postoperative Nausea & Vomiting (PONV) Date of Last Stent Placement:: 2019 Past Psychological History: No Psychological Hx Reported Smoking Status: Former smoker Past Alcohol Use History: None Reported Past Drug Use History: None Reported - Past Family History Father Family Medical History: Cancer Additional Family Medical History / Comment(s): Prostate cancer. Father of heart problems at the age of 83 yrs. Mother Additional Family Medical History / Comment(s): Mother was a nurse and contracted hepatitis C from a needle stick. She of liver problems at age 78 yrs.. General Exam Limitations: altered mental status General appearance: alert, in no apparent distress Head exam: Present: atraumatic, normocephalic Eye exam: Present: normal appearance, PERRL Pupils: Present: normal accommodation ENT exam: Present: normal exam, normal oropharynx, mucous membranes moist Neck exam: Present: normal inspection, full ROM Respiratory exam: Present: normal lung sounds bilaterally Cardiovascular Exam: Present: regular rate, normal rhythm, normal heart sounds GI/Abdominal exam: Present: soft Extremities exam: Present: normal inspection, full ROM Back exam: Present: normal inspection, full ROM Neurological exam: Present: alert, altered, CN II-XII intact, other (ANOx2, near his baseline 2/2 dementia) Psychiatric exam: Present: normal affect, normal mood Skin exam: Present: warm, dry Course Vital Signs 04/15/22 04/15/22 04/15/22 14:49 15:09 16:00 Temperature 97 F L Pulse Rate 74 77 77 Respiratory 16 20 20 Rate Blood Pressure 147/66 147/66 147/67 O2 Sat by Pulse 99 99 99 Oximetry 04/15/22 17:00 Temperature Pulse Rate 78 Respiratory 16 Rate Blood Pressure 177/69 O2 Sat by Pulse 98 Oximetry EKG Findings - EKG Comments: EKG Findings:: An EKG was obtained and was read by myself. EKG showed a rate of 76, CA interval 150, QRS duration 108 and QTC of 433. This EKG showed a normal sinus rhythm with no ST segment elevations or depressions noted. Medical Decision Making - Medical Decision Making The patient seen and evaluated in the emergency department. Physical exam, the patient was resting in bed without any acute distress. The patient was with his at bedside and she did state that the patient was more confused than at his baseline however was slowly improving. Vital signs admission were stable. Due to the nature the patient's new-onset of seizure, laboratory workup as well as a chest x-ray, EKG and CT of the head were obtained. Laboratory workup was largely within normal limits however the patient's lipase was elevated at 300 and lactic acid was 2.6 likely indicating a seizure. The patient did receive a liter normal saline fluid. Chest x-ray was negative for any acute infection at this time and head CT was also negative. Due to the patient's new-onset seizure, the patient did require inpatient management and further investigation. The patient's primary care physician, Dr. Najera was contacted. Dr. Najera is being covered by [facility]. Dr. Tyson was contacted and accepted the admission. Neurology will be placed on consult. Both the patient and his are told this plan and were agreeable. The patient was admitted in stable condition. - Lab Data Result diagrams: 04/15/22 Unknown 04/15/22 Unknown Lab Results 04/15/22 04/15/22 04/15/22 Range/Units 15:56 16:37 Unknown WBC 9.9 (3.8-10.6) k/uL RBC 4.72 (4.30-5.90) m/uL Hgb 14.2 (13.0-17.5) gm/dL Hct 41.1 (39.0-53.0) % MCV 87.0 (80.0-100.0) fL MCH 30.2 (25.0-35.0) pg MCHC 34.7 (31.0-37.0) g/dL RDW 13.6 (11.5-15.5) % Plt Count 210 (150-450) k/uL MPV 8.2 Neutrophils % 71 % Lymphocytes % 20 % Monocytes % 5 % Eosinophils % 2 % Basophils % 1 % Neutrophils # 7.0 (1.3-7.7) k/uL Lymphocytes # 2.0 (1.0-4.8) k/uL Monocytes # 0.5 (0-1.0) k/uL Eosinophils # 0.2 (0-0.7) k/uL Basophils # 0.1 (0-0.2) k/uL Sodium (137-145) mmol/L Potassium (3.5-5.1) mmol/L Chloride (98-107) mmol/L Carbon Dioxide (22-30) mmol/L Anion Gap mmol/L BUN (9-20) mg/dL Creatinine (0.66-1.25) mg/dL Est GFR (CKD-EPI)AfAm (>60 ml/min/1.73 sqM) Est GFR (CKD-EPI)NonAf (>60 ml/min/1.73 sqM) Glucose (74-99) mg/dL Plasma Lactic Acid Josh 2.8 H* (0.7-2.0) mmol/L Calcium (8.4-10.2) mg/dL Total Bilirubin (0.2-1.3) mg/dL AST (17-59) U/L ALT (4-49) U/L Alkaline Phosphatase (38-126) U/L Ammonia <9 (<30) umol/L Troponin I (0.000-0.034) ng/mL Total Protein (6.3-8.2) g/dL Albumin (3.5-5.0) g/dL Lipase (23-300) U/L Urine Color Light Yellow Urine Appearance Clear (Clear) Urine pH 6.5 (5.0-8.0) Ur Specific [place] 1.016 (1.001-1.035) Urine Protein Negative (Negative) Urine Glucose (UA) 4+ H (Negative) Urine Ketones 1+ H (Negative) Urine Blood Negative (Negative) Urine Nitrite Negative (Negative) Urine Bilirubin Negative (Negative) Urine Urobilinogen <2.0 (<2.0) mg/dL Ur Leukocyte Esterase Negative (Negative) Urine Opiates Screen Not Detected (NotDetected) Ur Oxycodone Screen Not Detected (NotDetected) Urine Methadone Screen Not Detected (NotDetected) Ur Propoxyphene Screen Not Detected (NotDetected) Ur Barbiturates Screen Not Detected (NotDetected) U Tricyclic Antidepress Not Detected (NotDetected) Ur Phencyclidine Scrn Not Detected (NotDetected) Ur Amphetamines Screen Not Detected (NotDetected) U Methamphetamines Scrn Not Detected (NotDetected) U Benzodiazepines Scrn Not Detected (NotDetected) Urine Cocaine Screen Not Detected (NotDetected) U Marijuana (THC) Screen Detected H (NotDetected) Serum Alcohol mg/dL 04/15/22 04/15/22 Range/Units Unknown Unknown WBC (3.8-10.6) k/uL RBC (4.30-5.90) m/uL Hgb (13.0-17.5) gm/dL Hct (39.0-53.0) % MCV (80.0-100.0) fL MCH (25.0-35.0) pg MCHC (31.0-37.0) g/dL RDW (11.5-15.5) % Plt Count (150-450) k/uL MPV Neutrophils % % Lymphocytes % % Monocytes % % Eosinophils % % Basophils % % Neutrophils # (1.3-7.7) k/uL Lymphocytes # (1.0-4.8) k/uL Monocytes # (0-1.0) k/uL Eosinophils # (0-0.7) k/uL Basophils # (0-0.2) k/uL Sodium 138 (137-145) mmol/L Potassium 5.3 H (3.5-5.1) mmol/L Chloride 104 (98-107) mmol/L Carbon Dioxide 28 (22-30) mmol/L Anion Gap 6 mmol/L BUN 18 (9-20) mg/dL Creatinine 0.78 (0.66-1.25) mg/dL Est GFR (CKD-EPI)AfAm >90 (>60 ml/min/1.73 sqM) Est GFR (CKD-EPI)NonAf >90 (>60 ml/min/1.73 sqM) Glucose 148 H (74-99) mg/dL Plasma Lactic Acid Josh (0.7-2.0) mmol/L Calcium 9.5 (8.4-10.2) mg/dL Total Bilirubin 1.0 (0.2-1.3) mg/dL AST 21 (17-59) U/L ALT 11 (4-49) U/L Alkaline Phosphatase 92 (38-126) U/L Ammonia (<30) umol/L Troponin I <0.012 (0.000-0.034) ng/mL Total Protein 6.9 (6.3-8.2) g/dL Albumin 4.5 (3.5-5.0) g/dL Lipase 302 H (23-300) U/L Urine Color Urine Appearance (Clear) Urine pH (5.0-8.0) Ur Specific [place] (1.001-1.035) Urine Protein (Negative) Urine Glucose (UA) (Negative) Urine Ketones (Negative) Urine Blood (Negative) Urine Nitrite (Negative) Urine Bilirubin (Negative) Urine Urobilinogen (<2.0) mg/dL Ur Leukocyte Esterase (Negative) Urine Opiates Screen (NotDetected) Ur Oxycodone Screen (NotDetected) Urine Methadone Screen (NotDetected) Ur Propoxyphene Screen (NotDetected) Ur Barbiturates Screen (NotDetected) U Tricyclic Antidepress (NotDetected) Ur Phencyclidine Scrn (NotDetected) Ur Amphetamines Screen (NotDetected) U Methamphetamines Scrn (NotDetected) U Benzodiazepines Scrn (NotDetected) Urine Cocaine Screen (NotDetected) U Marijuana (THC) Screen (NotDetected) Serum Alcohol <10 mg/dL Disposition Clinical Impression: New onset seizure Disposition: ADMITTED IP TO THIS [facility] Condition: Stable Instructions (If sedation given, give patient instructions): New-Onset Seizure in Adults (ED) Is patient prescribed a controlled substance at d/c from ED?: No Referrals: Wilver Najera MD [Primary Care Provider] - 1-2 days Time of Disposition: 17:25 Decision to Admit Reason: Admit from EC Decision Date: 04/15/22 Decision Time: 17:25
[2022-04-15 16:29] LABS: Lactic Acid, Venous 2.8 mmol/L (0.7-2.0)
[2022-04-15 16:50] LABS: Appearance,Urine Clear (Clear); Bilirubin,Urine Negative (Negative); Blood,Urine Negative (Negative); Color,Urine Light Yellow; Glucose,Urine (UA) 4+ (Negative); Ketones,Urine 1+ (Negative); Leukocyte Esterase,Urine Negative (Negative); Nitrite,Urine Negative (Negative); PH, Urine 6.5 (5.0-8.0); Protein,Urine Negative (Negative); Specific Gravity,Urine 1.016 (1.001-1.035); Urobilinogen,Urine <2.0 mg/dL (<2.0)
[2022-04-15] MEDS ORDERED: SODIUM CHLORIDE 0.9% 1,000 ML IV ONE (17:04)
[2022-04-15 17:09] LABS: Amphetamine Screen,Urine Not Detected (NotDetected); Barbiturate Screen,Urine Not Detected (NotDetected); Benzodiazepines Screen,Urine Not Detected (NotDetected); Cocaine Screen,Urine Not Detected (NotDetected); Methadone Screen, Urine Not Detected (NotDetected); Opiate Screen,Urine Not Detected (NotDetected); Oxycodone Screen, Urine Not Detected (NotDetected); Phencyclidine Screen,Urine Not Detected (NotDetected); Tricyclic Antidepressant,Urine Not Detected (NotDetected); Urn Cannabinoid Scrn Detected (NotDetected)
[2022-04-15] MEDS ORDERED: NALOXONE 0.4 MG/ML 1 ML VIAL IV PRN (17:34)
[2022-04-15] MEDS: SODIUM CHLORIDE 0.9% 1,000 ML IV SCH (18:42)
[2022-04-15 20:28] LABS: Glucose,Whole Blood 128 mg/dL (70-110)
[2022-04-16 06:16] LABS: Glucose,Whole Blood 104 mg/dL (70-110)
[2022-04-16] MEDS ORDERED: NALOXONE 0.4 MG/ML 1 ML VIAL IV PRN ×2 (08:15→11:47)
[2022-04-16] MEDS ORDERED: ONDANSETRON 4 MG/2 ML VIAL IVP PRN (08:15)
[2022-04-16] MEDS: SODIUM CHLORIDE 0.9% 1,000 ML IV SCH ×2 (08:18→20:56)
[2022-04-16] MEDS ORDERED: DEXTROSE 50% SYRINGE 50 ML IVP PRN ×2 (08:19)
[2022-04-16] MEDS: ENOXAPARIN 40 MG/0.4 ML SYRINGE SQ SCH (09:04)
[2022-04-16] MEDS: CLOPIDOGREL 75 MG TAB PO SCH (09:04)
[2022-04-16] MEDS: METOPROLOL SUCCINATE (ER) 50 MG TAB.ER.24H PO SCH ×2 (09:04→20:55)
[2022-04-16] MEDS: DULoxetine HCL 60 MG CAPSULE.DR PO SCH (09:04)
[2022-04-16] MEDS: ASPIRIN 81 MG PO SCH (09:04)
--- NOTE | 2022-04-16 10:37 | P.CNNES ---
History of Present Illness Consult date: 04/16/22 Requesting physician: Lambert Young Reason for Consult: New onset seizure History of Present Illness: Patient is a 71-year-old male came to the hospital by ambulance yesterday at 2:43 PM As per EMS flow sheet, when they arrive, found patient in care of self and family. Per family, the patient was sitting in chair in had full body shaking for about a minute and then was not responding appropriately. Family denies any history of seizure activity. Patient was alert and oriented 1, awake but unable to follow any basic commands and was confused and slow to answer any basic questions. Per family no falls or trauma. Patient denied any headache or dizziness. Patient's mental status continued to improve during transport to the hospital with foster responses and was able to answer basic questions appropriately. Patient continued to have equal washer off and no facial droop. Patient's vitals at the scene was blood pressure 124/67, pulse rate 74 respirations 18 saturation 97%, blood sugar 106. Patient's blood test shows lactate 2.8, ammonia <9, UA negative, urine drug screen positive for marijuana, CBC normal, sodium normal, potassium 5.3, normal renal functions, normal hepatic panel, troponin negative. Blood alcohol level <10. CT head showed mild atrophy, no acute intracranial abnormality. I personally reviewed CT head, agree with the findings. No acute process. EKG shows sinus rhythm. Chest x-ray revealed mild subsegmental atelectasis, appears new compared to old exam. Normal heart. Patient had an MRI of the brain performed previously on 09/06/2018, which revealed scattered deep white matter changes with atrophy. Findings can be compatible with chronic white matter skin changes. This is greater than expected for patient's age. Carotid ultrasound revealed moderate atherosclerotic changes bilaterally without hemodynamic significant stenosis seen in the internal carotid artery. Patient's home medications include Cymbalta 60 mg, metoprolol 59 g twice a day, Lipitor 80 mg, Plavix 75 mg, aspirin 81 mg, multivitamin, Namenda 10 mg twice a day, insulin, Jardince, Trulicity, donepezil 10 mg, Sinemet CR 50/200 mg, twice a day, metformin 1500 mg at supper. 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 09/24/15 PCI with stent. Other surgical hx: 2001 cardiac cath, R shoulder surgery, umbilical hernia repair, surgery for sleep apnea & cataract R eye. COLONOSCOPY, Past Anesthesia/Blood Transfusion Reactions: Postoperative Nausea & Vomiting (PONV) Date of Last Stent Placement:: 2019 Past Psychological History: No Psychological Hx Reported Additional Psychological History / Comment(s): Pt believes he has PTSD. He is a . Smoking Status: Former smoker Past Alcohol Use History: None Reported Additional Past Alcohol Use History / Comment(s): Quit at age 28, smoked only for a few yrs. Pt quit drinking in 1983 Past Drug Use History: None Reported - Past Family History Father Family Medical History: Cancer Additional Family Medical History / Comment(s): Prostate cancer. Father of heart problems at the age of 83 yrs. Mother Additional Family Medical History / Comment(s): Mother was a nurse and contracted hepatitis C from a needle stick. She of liver problems at age 78 yrs.. Medications and Allergies Home Medications Medication Instructions Recorded Confirmed Type DULoxetine HCL [Cymbalta] 60 mg PO DAILY 09/22/15 04/15/22 History Metoprolol Succinate [Toprol XL] 50 mg PO BID 09/22/15 04/15/22 History Atorvastatin [Lipitor] 80 mg PO HS #30 tab 09/25/15 04/15/22 Rx Clopidogrel Bisulfate [Plavix] 75 mg PO DAILY 07/05/17 04/15/22 History Aspirin 81 mg PO DAILY #30 chew 07/07/17 04/15/22 Rx Nitroglycerin Sl Tabs [Nitrostat] 0.4 mg SUBLINGUAL Q5M PRN #25 tab 07/07/17 04/15/22 Rx Carbidopa-Levodopa ER 50-200Mg 1 tab PO BID 10/20/21 04/15/22 History [Sinemet CR 50-200 mg] Donepezil HCl [Aricept] 10 mg PO BID 10/20/21 04/15/22 History Dulaglutide [Trulicity] 0.75 mg SQ TURNER 10/20/21 04/15/22 History Empagliflozin [Jardiance] 25 mg PO DAILY 10/20/21 04/15/22 History Insulin Degludec [Tresiba] 50 units SQ HS 10/20/21 04/15/22 History Memantine [Namenda] 10 mg PO BID 10/20/21 04/15/22 History Multivit-Min/Folic/Vit K/Lycop 1 tab PO DAILY 10/20/21 04/15/22 History [Men's Multivitamin Tablet] metFORMIN HCL ER [Glucophage XR] 1,500 mg PO W/SUPPER 04/15/22 04/15/22 History Cyanocobalamin [Vitamin B-12] 1,000 mcg PO DAILY #30 tab 04/17/22 Rx Folic Acid 1 mg PO DAILY #30 tab 04/17/22 Rx Allergies Allergy/AdvReac Type Severity Reaction Status Date / Time No Known Allergies Allergy Verified 04/15/22 16:45 Physical Examination - Vital Signs Vital Signs: Vital Signs Temp Pulse Pulse Resp BP BP Pulse Ox 04/16/22 07:00 97.6 F 77 16 139/70 98 04/16/22 03:00 98.1 F 77 16 128/66 95 04/15/22 18:50 98.1 F 82 17 122/60 98 04/15/22 18:30 77 20 147/78 99 04/15/22 17:00 78 16 177/69 98 04/15/22 16:00 77 20 147/67 99 04/15/22 15:09 77 20 147/66 99 04/15/22 14:49 97 F L 74 16 147/66 99 Intake and Output 04/15/22 04/16/22 04/16/22 22:59 06:59 14:59 Intake Total 450 450 Output Total 625 Balance 450 450 -625 Intake: Intake, IV Titration 450 450 Amount Sodium Chloride 0.9% 1, 450 450 000 ml @ 75 mls/hr IV . [id number] [facility] Rx#:[id number] Output: Urine 625 Other: Voiding Method Toilet Urinal # Voids 2 2 # Bowel Movements 1 Weight 99.79 kg Results - Laboratory Findings CBC and BMP: 04/15/22 Unknown 04/15/22 Unknown Abnormal Lab Findings: Abnormal Labs 04/15/22 04/15/22 04/15/22 15:56 16:37 20:26 Potassium Glucose POC Glucose (mg/dL) 128 H Plasma Lactic Acid Josh 2.8 H* Lipase Urine Glucose (UA) 4+ H Urine Ketones 1+ H U Marijuana (THC) Screen Detected H 04/15/22 Unknown Potassium 5.3 H Glucose 148 H POC Glucose (mg/dL) Plasma Lactic Acid Josh Lipase 302 H Urine Glucose (UA) Urine Ketones U Marijuana (THC) Screen Assessment and Plan Assessment: * New onset seizure, unclear cause. No obvious provoking factor identified. * Slight focal findings on examination with right facial droop, visual deficits (lower altitudinal bilaterally ?? new or old), rule out CVA * Diabetes, not well controlled * Hypertension * Dementia * Macular degeneration, receives intraocular shots by silicator * Diabetic retinopathy * Diabetic peripheral neuropathy * Parkinson's disease * Marijuana use. Plan: * Patient has new onset seizure. Patient needs further workup to evaluate for secondary causes of seizures. * MRI of the brain evaluate for an acute stroke * EEG evaluate for any epileptiform activity * Carotid Doppler, rule out stenosis * Continue aspirin 81 mg and Plavix 75 mg daily. * B12, folate, TSH, hemoglobin A1c, lipid panel * Telemetric monitoring, rule out arrhythmia. * If the neurological workup is negative, then we will hold off on antiepileptic medication. * Patient's informed of [place] state law of no driving unless seizure free for 6 months, climbing ladders, operating dangerous machinery or unsupervised swimming. * Discussed with patient's , and primary physician. * Neurology will follow. Thank you for the consult.
[2022-04-16] MEDS: CARBIDOPA-LEVODOPA ER 50-200MG 1 EACH TABLET.ER PO SCH ×2 (10:58→20:55)
[2022-04-16] MEDS: DONEPEZIL 10 MG TAB PO SCH ×2 (10:58→20:55)
[2022-04-16] MEDS: MEMANTINE 10 MG TAB PO SCH ×2 (10:58→20:55)
--- NOTE | 2022-04-16 11:55 | P.HPIM ---
History of Present Illness H&P Date: 04/16/22 History of present illness; patient is a 71-year-old gentleman with past medical history significant for diabetes mellitus, dementia, Parkinson disease who presented to the ER because of witnessed seizure. According to the EMR, patient was outside in the barn when his [id number] witnessed him fall into a chair and had seizure-like activity for approximately 30 seconds. The patient was confused after this and EMS was called. The patient did not hit his head and did not lose consciousness. In the ER, patient was worked up. Chest x-ray was negative for any acute infection at this time and head CT was also negative. Initial lab work showed patient to have a white count of 9.9, hemoglobin of 14.0, sodium 138, potassium 5.3, blood sugar was 128, urine drug screen was positive for marijuana. Patient was admitted to hospitalist service for further evaluation and treatment REVIEW OF SYSTEMS: CONSTITUTIONAL: No fever. Complaining of lethargy HEENT: No recent visual problems or hearing problems. Denied any sore throat. CARDIOVASCULAR: No chest pain, no palpitations, no syncope. PULMONARY: No shortness of breath, no cough, no hemoptysis. GASTROINTESTINAL: No diarrhea, no nausea, no abdominal pain. NEUROLOGICAL: No headaches, no weakness, no numbness. HEMATOLOGICAL: Denies any bleeding or petechiae. GENITOURINARY: Denies any burning micturition, frequency, or urgency. MUSCULOSKELETAL/RHEUMATOLOGICAL: Denies any joint pain, swelling, or any muscle pain. ENDOCRINE: Denies any polyuria or polydipsia. The rest of the 14-point review of systems is negative. PHYSICAL EXAMINATION: GENERAL: The patient is alert and oriented x3, not in any acute distress. Well developed, well nourished. HEENT: Pupils are round and equally reacting to light. EOMI. No scleral icterus. No conjunctival pallor. Normocephalic, atraumatic. No pharyngeal erythema. No thyromegaly. CARDIOVASCULAR: S1 and S2 present. No murmurs, rubs, or gallops. PULMONARY: Chest is clear to auscultation, no wheezing or crackles. ABDOMEN: Soft, nontender, nondistended, normoactive bowel sounds. No palpable organomegaly. MUSCULOSKELETAL: No joint swelling or deformity. EXTREMITIES: No cyanosis, clubbing, or pedal edema. NEUROLOGICAL: Gross neurological examination did not reveal any focal deficits. SKIN: No rashes. Assessment and plan New onset seizure, unclear cause. No obvious provoking factor identified. Slight focal findings on examination with right facial droop, visual deficits (lower altitudinal bilaterally ?? new or old), rule out CVA Diabetes, not well controlled Hypertension Dementia Macular degeneration, receives intraocular shots by buckle assembler Diabetic retinopathy Diabetic peripheral neuropathy Parkinson's disease Marijuana use. Plan; Monitor vital signs Continue telemetry monitoring Continue neuro checks. Fall precautions EEG ordered. MRI brain ordered. Ordered ultrasound of carotids. PT and OT evaluation. Resume home meds. Consult neurology Past Medical History Past Medical History: Coronary Artery Disease (CAD), Chest Pain / Angina, Diabetes Mellitus, Hyperlipidemia, Hypertension, Myocardial Infarction (ND), Neurologic Disorder, Osteoarthritis (OA) Additional Past Medical History / Comment(s): bilateral neuropathy in feet, bilateral diabetic retinopathy, bilateral macular degeneration, bilateral eye cataract, sleep apnea but had surgery to correct, , PARKINSON'S, STARTING OF DEMENTIA Last Myocardial Infarction Date:: 06/28/2019 History of Any Multi-Drug Resistant Organisms: None Reported Past Surgical History: Adenoidectomy, Appendectomy, Ear Surgery, Heart Catheter ization, Heart Catheterization With Stent, Hernia Repair, Orthopedic Surgery, Tonsillectomy Additional Past Surgical History / Comment(s): 10-16-15 heart cath w/2 stents to lad. 09/24/15 PCI with stent. Other surgical hx: 2001 cardiac cath, R shoulder surgery, umbilical hernia repair, surgery for sleep apnea & cataract R eye. COLONOSCOPY, Past Anesthesia/Blood Transfusion Reactions: Postoperative Nausea & Vomiting (PONV) Date of Last Stent Placement:: 2019 Past Psychological History: No Psychological Hx Reported Additional Psychological History / Comment(s): Pt believes he has PTSD. He is a . Smoking Status: Former smoker Past Alcohol Use History: None Reported Additional Past Alcohol Use History / Comment(s): Quit at age 28, smoked only for a few yrs. Pt quit drinking in 1983 Past Drug Use History: None Reported - Past Family History Father Family Medical History: Cancer Additional Family Medical History / Comment(s): Prostate cancer. Father of heart problems at the age of 83 yrs. Mother Additional Family Medical History / Comment(s): Mother was a nurse and contracted hepatitis C from a needle stick. She of liver problems at age 78 yrs.. Medications and Allergies Home Medications Medication Instructions Recorded Confirmed Type DULoxetine HCL [Cymbalta] 60 mg PO DAILY 09/22/15 04/15/22 History Metoprolol Succinate [Toprol XL] 50 mg PO BID 09/22/15 04/15/22 History Atorvastatin [Lipitor] 80 mg PO HS #30 tab 09/25/15 04/15/22 Rx Clopidogrel Bisulfate [Plavix] 75 mg PO DAILY 07/05/17 04/15/22 History Aspirin 81 mg PO DAILY #30 chew 07/07/17 04/15/22 Rx Nitroglycerin Sl Tabs [Nitrostat] 0.4 mg SUBLINGUAL Q5M PRN #25 tab 07/07/17 04/15/22 Rx Carbidopa-Levodopa ER 50-200Mg 1 tab PO BID 10/20/21 04/15/22 History [Sinemet CR 50-200 mg] Donepezil HCl [Aricept] 10 mg PO BID 10/20/21 04/15/22 History Dulaglutide [Trulicity] 0.75 mg SQ TURNER 10/20/21 04/15/22 History Empagliflozin [Jardiance] 25 mg PO DAILY 10/20/21 04/15/22 History Insulin Degludec [Tresiba] 50 units SQ HS 10/20/21 04/15/22 History Memantine [Namenda] 10 mg PO BID 10/20/21 04/15/22 History Multivit-Min/Folic/Vit K/Lycop 1 tab PO DAILY 10/20/21 04/15/22 History [Men's Multivitamin Tablet] metFORMIN HCL ER [Glucophage XR] 1,500 mg PO W/SUPPER 04/15/22 04/15/22 History Allergies Allergy/AdvReac Type Severity Reaction Status Date / Time No Known Allergies Allergy Verified 04/15/22 16:45 Physical Exam Vitals: Vital Signs Temp Pulse Pulse Resp BP BP Pulse Ox 04/16/22 08:15 98 04/16/22 07:00 97.6 F 77 16 139/70 98 04/16/22 03:00 98.1 F 77 16 128/66 95 04/15/22 18:50 98.1 F 82 17 122/60 98 04/15/22 18:30 77 20 147/78 99 04/15/22 17:00 78 16 177/69 98 04/15/22 16:00 77 20 147/67 99 04/15/22 15:09 77 20 147/66 99 04/15/22 14:49 97 F L 74 16 147/66 99 Intake and Output 04/15/22 04/16/22 04/16/22 22:59 06:59 14:59 Intake Total 450 450 Output Total 625 Balance 450 450 -625 Intake: Intake, IV Titration 450 450 Amount Sodium Chloride 0.9% 1, 450 450 000 ml @ 75 mls/hr IV . [id number] [facility] Rx#:[id number] Output: Urine 625 Other: Voiding Method Toilet Urinal # Voids 2 2 # Bowel Movements 1 Weight 99.79 kg Results CBC & Chem 7: 04/15/22 Unknown 04/15/22 Unknown Labs: Abnormal Lab Results - Last 24 Hours (Table) 04/15/22 04/15/22 04/15/22 Range/Units 15:56 16:37 20:26 Potassium (3.5-5.1) mmol/L Glucose (74-99) mg/dL POC Glucose (mg/dL) 128 H (70-110) mg/dL Plasma Lactic Acid Josh 2.8 H* (0.7-2.0) mmol/L Lipase (23-300) U/L Urine Glucose (UA) 4+ H (Negative) Urine Ketones 1+ H (Negative) U Marijuana (THC) Screen Detected H (NotDetected) 04/15/22 Range/Units Unknown Potassium 5.3 H (3.5-5.1) mmol/L Glucose 148 H (74-99) mg/dL POC Glucose (mg/dL) (70-110) mg/dL Plasma Lactic Acid Josh (0.7-2.0) mmol/L Lipase 302 H (23-300) U/L Urine Glucose (UA) (Negative) Urine Ketones (Negative) U Marijuana (THC) Screen (NotDetected)
[2022-04-16 11:57] LABS: Glucose,Whole Blood 159 mg/dL (70-110)
[2022-04-16] MEDS ORDERED: LORazepam 0.5 MG TAB PO PRN (12:06)
--- NOTE | 2022-04-16 13:25 | MR ---
EXAMINATION TYPE: MR brain wo con DATE OF EXAM: 04/16/2022 1:12 PM COMPARISON: MRI brain 09/06/2018. CLINICAL INDICATION:Male, 71 years old with history of New onset seizure; TECHNIQUE: Multi planar, multi sequence imaging was performed through the brain including: T1, T2, In version recovery, Diffusion weighted imaging, and gradient echo imaging. No gadolinium was given. FINDINGS: The ventricular system, and cisterns appear unremarkable. Scattered foci of high T2 signal intensity are seen within the periventricular white matter. Midline structures show no abnormality. Diffusion- weighted imaging shows no evidence of restricted diffusion. The susceptibility weighted images do not reveal any evidence for micro-hemorrhage. The middle temporal lobes appear within normal limits and symmetric. The bone marrow signal is within normal limits. The paranasal sinuses. Bilateral aphakia IMPRESSION: 1. No evidence of intracranial mass or acute/subacute infarct. No significant change from prior in . 2. Nonspecific white matter changes, likely secondary to small vessel ischemic disease.
--- NOTE | 2022-04-16 14:03 | EEG ---
ELECTROENCEPHALOGRAM REPORT PREAMBLE: This is a 71-year-old male with new onset seizure. This study is performed to evaluate for any epileptiform activity. EEG FINDINGS: This is a 21-channel digital EEG recorded with video competent, utilizing 10/20 international system with referential and bipolar montages. Background consists of well-developed, well-regulated, moderate-voltage activity in 6 to 7 Hz theta, mixed with some occasional delta activity seen in bihemispheric region. Background does not seem to be clearly reactive to eye opening or closing. Photic driving response was not seen. Different stages of sleep were not seen. No focal or generalized epileptiform activity was seen. IMPRESSION: This is an abnormal EEG due to background slowing of [id number] degree. This is suggestive of generalized cerebral dysfunction as can be seen with toxic metabolic encephalopathy or due to diffuse structural brain abnormality. Clinical correlation is recommended. No epileptiform activity was seen. MMODL / IJN: [id number] /
[2022-04-16] MEDS: INSULIN ASPART (NovoLOG) 100 UNIT/ML VIAL SQ SCH ×3 (14:11→20:56)
--- NOTE | 2022-04-16 15:00 | US ---
EXAMINATION TYPE: US carotid duplex BILAT DATE OF EXAM: 04/16/2022 COMPARISON: US CLINICAL HISTORY: Seizure vs syncope, visual disturbance. Syncope TECHNIQUE: Carotid duplex ultrasound examination. Indirect Doppler criteria was utilized. FINDINGS: EXAM MEASUREMENTS: RIGHT: Peak Systolic Velocity (PSV) cm/sec ----- Right CCA: 72.3 ----- Right ICA: 116.1 ----- Right ECA: 106.4 ICA/CCA ratio: 1.6 RIGHT: End Diastole cm/sec ----- Right CCA: 8.6 ----- Right ICA: 20.8 ----- Right ECA: 0.0 LEFT: Peak Systolic Velocity (PSV) cm/sec ----- Left CCA: 79.0 ----- Left ICA: 133.8 ----- Left ECA: 147.6 ICA/CCA ratio: 1.7 LEFT: End Diastole cm/sec ----- Left CCA: 10.9 ----- Left ICA: 33.3 ----- Left ECA: 0.0 VERTEBRALS (direction of flow): Right Vertebral: Antegrade Left Vertebral: Antegrade Rhythm: Normal TEAMCENTER SOLUTION ARCHITECT NOTES: Heterogeneous plaque bilaterally with slightly elevated velocities bilaterally IMPRESSION: 1. 50-69% stenosis of the left carotid bifurcation by peak systolic velocity. 2. Less than 50% stenosis of the right carotid bifurcation. Criteria for Assigning % of Stenosis / Diameter reduction (Estimation based on the indirect measurements of the internal carotid artery velocities (ICA PSV). 1. Normal (no stenosis)=ICA PSV < 125 cm/s: ratio < 2.0: ICA EDV<40 cm/s. 2. Less than 50% stenosis=ICA PSV < 125 cm/s: ratio < 2.0: ICA EDV<40 cm/s. 3. 50 to 69% stenosis=ICA PSV of 125 to 230 cm/s: ration 2.0 ? 4.0: ICA EDV 40-100 cm/s. 4. Greater than 70% stenosis to near occlusion= ICA PSV > 230 cm/s: ratio > 4.0: ICA EDV > 100 cm/s. 5. Near occlusion= ICA PSV velocities may be low or undetectable: variable ratio and ICA EDV. 6. Total occlusion=unable to detect flow.
[2022-04-16 16:31] LABS: Glucose,Whole Blood 176 mg/dL (70-110)
[2022-04-16 20:45] LABS: Glucose,Whole Blood 219 mg/dL (70-110)
[2022-04-16] MEDS ORDERED: ATORVASTATIN 80 MG TAB PO SCH (21:00)
[2022-04-17 06:05] LABS: Glucose,Whole Blood 113 mg/dL (70-110)
[2022-04-17 06:21] LABS: Glucose,Whole Blood 113 mg/dL (70-110)
[2022-04-17] MEDS: INSULIN ASPART (NovoLOG) 100 UNIT/ML VIAL SQ SCH ×2 (06:29→12:53)
[2022-04-17 07:50] VITALS: BP 125/69; PULSE 71; RESP 16; TEMP 97.7
[2022-04-17] MEDS: DULoxetine HCL 60 MG CAPSULE.DR PO SCH (08:40)
[2022-04-17] MEDS: ASPIRIN 81 MG PO SCH (08:40)
[2022-04-17] MEDS: METOPROLOL SUCCINATE (ER) 50 MG TAB.ER.24H PO SCH (08:40)
[2022-04-17] MEDS: CLOPIDOGREL 75 MG TAB PO SCH (08:40)
[2022-04-17] MEDS: MEMANTINE 10 MG TAB PO SCH (08:40)
[2022-04-17] MEDS: ENOXAPARIN 40 MG/0.4 ML SYRINGE SQ SCH (08:40)
[2022-04-17] MEDS: DONEPEZIL 10 MG TAB PO SCH (08:41)
[2022-04-17] MEDS: CARBIDOPA-LEVODOPA ER 50-200MG 1 EACH TABLET.ER PO SCH (08:41)
[2022-04-17 11:06] LABS: Chol/HDL Ratio 3.32 Ratio; LDL Cholesterol,Calculated 73.6 mg/dL (0.0-131.0)
[2022-04-17 12:58] LABS: Glucose,Whole Blood 135 mg/dL (70-110)
[2022-04-17] MEDS ORDERED: CYANOCOBALAMIN 1,000 MCG/ML 1 ML VIAL IM ONE (12:59)
[2022-04-17] MEDS ORDERED: FOLIC ACID 1 MG TAB PO SCH (13:00)
--- NOTE | 2022-04-17 13:48 | P.DS ---
Providers Date of admission: 04/15/22 17:35 Expected date of discharge: 04/17/22 Attending physician: Martin Tyson MD Consults: 04/15/22 17:34 Consult Physician Routine Consulting Provider: Josef Mayo Consult Reason/Comments: New onset seizure Do you want consulting provider notified?: Yes, Notify in am Primary care physician: Wilver Najera Hospital Course: Discharge diagnoses; New onset seizure, Diabetes, not well controlled Hypertension Dementia Macular degeneration, receives intraocular shots by roller structural mill Diabetic retinopathy Diabetic peripheral neuropathy Parkinson's disease Marijuana use. Vitamin B12 deficiency Folic acid deficiency Plan; EEG does not show any seizure-like activity MRI brain negative for acute stroke ultrasound of carotids showed 50-69% stenosis of left carotid bifurcation, and less than 50% stenosis of the right carotid bifurcation. Recommend outpatient follow-up with vascular surgery Neurology cleared The patient for discharge Hospital course; patient is a 71-year-old gentleman with past medical history significant for diabetes mellitus, dementia, Parkinson disease who presented to the ER because of witnessed seizure. According to the EMR, patient was outside in the barn when his [id number] witnessed him fall into a chair and had seizure-like activity for approximately 30 seconds. The patient was confused after this and EMS was called. The patient did not hit his head and did not lose consciousness. In the ER, patient was worked up. Chest x-ray was negative for any acute infection at this time and head CT was also negative. Initial lab work showed patient to have a white count of 9.9, hemoglobin of 14.0, sodium 138, potassium 5.3, blood sugar was 128, urine drug screen was positive for marijuana. Patient was admitted to hospitalist service for further evaluation and treatment. Neurology recommended doing EEG and MRI brain. MRI brain negative for acute stroke. EEG did not show any epileptic form activity. Vitamin B12 and folic acid were low, neurology recommended replacing them and keeping patient on supplementation at discharge PHYSICAL EXAMINATION: GENERAL: The patient is alert and oriented x3, not in any acute distress. Well developed, well nourished. HEENT: Pupils are round and equally reacting to light. EOMI. No scleral icterus. No conjunctival pallor. Normocephalic, atraumatic. No pharyngeal erythema. No thyromegaly. CARDIOVASCULAR: S1 and S2 present. No murmurs, rubs, or gallops. PULMONARY: Chest is clear to auscultation, no wheezing or crackles. ABDOMEN: Soft, nontender, nondistended, normoactive bowel sounds. No palpable organomegaly. MUSCULOSKELETAL: No joint swelling or deformity. EXTREMITIES: No cyanosis, clubbing, or pedal edema. NEUROLOGICAL: Gross neurological examination did not reveal any focal deficits. SKIN: No rashes. Patient Condition at Discharge: Stable Plan - Discharge Summary Discharge Rx Participant: Yes New Discharge Prescriptions: New Folic Acid 1 mg PO DAILY #30 tab Cyanocobalamin [Vitamin B-12] 1,000 mcg PO DAILY #30 tab Continue DULoxetine HCL [Cymbalta] 60 mg PO DAILY Metoprolol Succinate [Toprol XL] 50 mg PO BID Atorvastatin [Lipitor] 80 mg PO HS #30 tab Clopidogrel Bisulfate [Plavix] 75 mg PO DAILY Aspirin 81 mg PO DAILY #30 chew Nitroglycerin Sl Tabs [Nitrostat] 0.4 mg SUBLINGUAL Q5M PRN #25 tab PRN Reason: Chest Pain Multivit-Min/Folic/Vit K/Lycop [Men's Multivitamin Tablet] 1 tab PO DAILY Memantine [Namenda] 10 mg PO BID Insulin Degludec [Tresiba] 50 units SQ HS Dulaglutide [Trulicity] 0.75 mg SQ TURNER Empagliflozin [Jardiance] 25 mg PO DAILY Donepezil HCl [Aricept] 10 mg PO BID Carbidopa-Levodopa ER 50-200Mg [Sinemet CR 50-200 mg] 1 tab PO BID metFORMIN HCL ER [Glucophage XR] 1,500 mg PO W/SUPPER Discharge Medication List DULoxetine HCL [Cymbalta] 60 mg PO DAILY 09/22/15 [History] Metoprolol Succinate [Toprol XL] 50 mg PO BID 09/22/15 [History] Atorvastatin [Lipitor] 80 mg PO HS #30 tab 09/25/15 [Rx] Clopidogrel Bisulfate [Plavix] 75 mg PO DAILY 07/05/17 [History] Aspirin 81 mg PO DAILY #30 chew 07/07/17 [Rx] Nitroglycerin Sl Tabs [Nitrostat] 0.4 mg SUBLINGUAL Q5M PRN #25 tab 07/07/17 [Rx] Carbidopa-Levodopa ER 50-200Mg [Sinemet CR 50-200 mg] 1 tab PO BID 10/20/21 [History] Donepezil HCl [Aricept] 10 mg PO BID 10/20/21 [History] Dulaglutide [Trulicity] 0.75 mg SQ TURNER 10/20/21 [History] Empagliflozin [Jardiance] 25 mg PO DAILY 10/20/21 [History] Insulin Degludec [Tresiba] 50 units SQ HS 10/20/21 [History] Memantine [Namenda] 10 mg PO BID 10/20/21 [History] Multivit-Min/Folic/Vit K/Lycop [Men's Multivitamin Tablet] 1 tab PO DAILY 10/20/21 [History] metFORMIN HCL ER [Glucophage XR] 1,500 mg PO W/SUPPER 04/15/22 [History] Cyanocobalamin [Vitamin B-12] 1,000 mcg PO DAILY #30 tab 04/17/22 [Rx] Folic Acid 1 mg PO DAILY #30 tab 04/17/22 [Rx] Follow up Appointment(s)/Referral(s): Wilver Najera MD [Primary Care Provider] - 1-2 days Patient Instructions/Handouts: New-Onset Seizure in Adults (ED)
[2022-04-18] MEDS ORDERED: CYANOCOBALAMIN 500 MCG TAB PO SCH (09:00)
--- NOTE | 2022-04-18 13:00 | P.PN ---
Subjective Progress Note Date: 04/17/22 Patient was seen for a follow-up. Patient is laying comfortably in the bed. Patient is much more alert and awake and interactive. Patient stating that when he is focusing, his visual images moves up and down. Denies any loss of vision, double vision. He has history of previous procedures in the eyes and follows up with avionics system engineer. Patient states that he has been smoking marijuana since 1969. He states that at present he takes 2 hits once in a while. Objective - Vital Signs Vital signs: Vital Signs Temp 97.7 F 04/17/22 07:00 Pulse 71 04/17/22 07:00 Resp 16 04/17/22 08:00 BP 125/69 04/17/22 07:00 Pulse Ox 96 04/17/22 08:15 FiO2 Intake & Output 04/16/22 04/17/22 04/17/22 18:59 06:59 18:59 Intake Total 118 118 Output Total 625 1100 Balance -507 -1100 118 Intake: Oral 118 118 Output: Urine 625 1100 Other: Voiding Method Toilet Urinal Urinal Urinal Diaper Diaper # Voids 3 1 1 # Bowel Movements 1 - Exam Patient is alert and awake. Patient's mental status appears stable. He has mild right facial droop/asymmetry. Muscle strength is normal. Visual batista are full. Tone is very mildly increased on the right. He appears bradykinetic. - Labs CBC & Chem 7: 04/15/22 Unknown 04/15/22 Unknown Labs: Abnormal Lab Results - Last 24 Hours (Table) 04/16/22 04/16/22 04/16/22 Range/Units 10:04 16:29 20:43 POC Glucose (mg/dL) 176 H 219 H (70-110) mg/dL Hemoglobin A1c 7.1 H (0.0-6.0) % 04/17/22 04/17/22 04/17/22 Range/Units 06:03 06:14 12:56 POC Glucose (mg/dL) 113 H 113 H 135 H (70-110) mg/dL Hemoglobin A1c (0.0-6.0) % Assessment and Plan Assessment: * New onset seizure, unclear cause. No obvious provoking factor identified. * Slight focal findings on examination with right facial droop, visual deficits (lower altitudinal bilaterally ?? new or old), rule out CVA * Diabetes, not well controlled * Hypertension * Dementia * Macular degeneration, receives intraocular shots by avionics system engineer * Diabetic retinopathy * Diabetic peripheral neuropathy * Parkinson's disease * Marijuana use. Plan: * Patient has new onset seizure. No obvious provoking factor identified. All workup performed as below is negative. Patient not a candidate for antiepileptic medication at this time for new onset seizure with negative workup. If he has a second unprovoked seizure, then he would be a candidate for antiepileptic medication. I discussed with primary physician and patient's in detail. * MRI of the brain without contrast showed no evidence of intracranial mass, acute or subacute infarct. No change from prior MRI from 2019. Nonspecific white matter change. I personally reviewed MRI and agree with the findings. * EEG was abnormal due to background slowing of mild to moderate degree. This is suggestive of generalized cerebral dysfunction as can be seen with toxic metabolic encephalopathy or due to diffuse structural brain abnormality. Clinical correlation is recommended. No epileptiform activity was seen. * Carotid Doppler revealed 50-69% stenosis left carotid bifurcation. Less than 50% stenosis of the right carotid bifurcation. Antegrade flow in both vertebral arteries. * Continue aspirin 81 mg and Plavix 75 mg daily. * B12 302, folate 7.6, hemoglobin A1c 7.1, lipid panel with cholesterol 144, LDL 73, HDL 43 and triglycerides 135. Continue Lipitor 80 mg daily. Patient was given vitamin B12 injection 1000 g IM 1 dose. He will be maintained on vitamin B12 1000 g orally and folic acid 1 mg daily. * Patient and his were informed of [place] state law of no driving unless seizure free for 6 months, climbing ladders, operating dangerous machinery or unsupervised swimming. * Discussed with patient's , and primary physician. * Neurologically clear for discharge.
== END 2022-04-17 15:26 | disposition home or self-care (01) ==
LOC: EC 14:43 → 6NMEDSUR 17:35
PROVIDERS: ADMIT Internal Medicine; ATTEND Internal Medicine
DX: G40.89 Other seizures (principal); E11.319 Type 2 diabetes mellitus with unspecified diabetic retinopathy without macular edema; E11.42 Type 2 diabetes mellitus with diabetic polyneuropathy; I10 Essential (primary) hypertension; H35.30 Unspecified macular degeneration; F02.80 Dementia in other diseases classified elsewhere, unspecified severity, without behavioral disturbance, psychotic disturbance, mood disturbance, and anxiety; G20 Parkinson's disease; E53.8 Deficiency of other specified B group vitamins; I25.119 Atherosclerotic heart disease of native coronary artery with unspecified angina pectoris; E78.5 Hyperlipidemia, unspecified; I65.23 Occlusion and stenosis of bilateral carotid arteries; I25.2 Old myocardial infarction; M19.90 Unspecified osteoarthritis, unspecified site; Z90.49 Acquired absence of other specified parts of digestive tract; Z95.5 Presence of coronary angioplasty implant and graft; Z98.890 Other specified postprocedural states; Z98.41 Cataract extraction status, right eye; Z87.891 Personal history of nicotine dependence; Z80.42 Family history of malignant neoplasm of prostate; Z82.49 Family history of ischemic heart disease and other diseases of the circulatory system; Z83.1 Family history of other infectious and parasitic diseases; Z79.4 Long term (current) use of insulin; Z79.84 Long term (current) use of oral hypoglycemic drugs; Z79.02 Long term (current) use of antithrombotics/antiplatelets; Z79.82 Long term (current) use of aspirin; Z79.85 Long-term (current) use of injectable non-insulin antidiabetic drugs; Z79.899 Other long term (current) drug therapy
CPT/HCPCS: 96361 ×2; 96372 ×2; 96360; 99285; 36415; 95816; 93005; 80061; 80053; 82607; 82140; 82746; 83605; 83690; 84484; 85025; 81003; 80306; 80320; 83036; 71046; 93880; 70450; 70551; G0378 ×3; J3420; J1650 ×2

== ENCOUNTER 2023-08-10 08:45 | Inpatient (IN) | payer MEDICARE, BC ==
--- NOTE | 2023-08-10 09:46 | ED ---
Fall HPI - General Chief Complaint: Fall Stated Complaint: Fall, L Eyebrow Lac Time Seen by Provider: 08/10/23 08:55 Source: EMS Mode of arrival: EMS - History of Present Illness Initial Comments: 73-year-old male past medical history of Parkinson's disease presents to the emergency department after a fall. States that he got up from his bed and ended up having a syncopal episode. Patient fell and hit his head on the hardwood floor. He sustained a laceration above his left eye. Patient also complains of bilateral knee pain. Suspect that his weakness is secondary to his Parkinson's. Normally ambulates with a walker and did not have his walker with him. He admits that he did lose consciousness. Patient admits to pain at the site of his head injury. Denies nausea or vomiting. No neck pain. No other alleviating, precipitating modifying factors - Related Data Home Medications Medication Instructions Recorded Confirmed DULoxetine HCL [Cymbalta] 60 mg PO DAILY 09/22/15 08/10/23 Metoprolol Succinate [Toprol XL] 50 mg PO BID 09/22/15 08/10/23 Clopidogrel Bisulfate [Plavix] 75 mg PO DAILY 07/05/17 08/10/23 Carbidopa-Levodopa ER 50-200Mg 1.5 tab PO BID 10/20/21 08/10/23 [Sinemet CR 50-200 mg] Donepezil HCl [Aricept] 10 mg PO BID 10/20/21 08/10/23 Dulaglutide [Trulicity] 0.5 mg SQ TURNER 10/20/21 08/10/23 Empagliflozin [Jardiance] 25 mg PO DAILY 10/20/21 08/10/23 Memantine [Namenda] 10 mg PO BID 10/20/21 08/10/23 Multivit-Min/Folic/Vit K/Lycop 1 tab PO DAILY 10/20/21 08/10/23 [Men's Multivitamin Tablet] metFORMIN HCL ER [Glucophage XR] 1,500 mg PO W/SUPPER 04/15/22 08/10/23 Fludrocortisone Acetate 0.1 mg PO DAILY 08/10/23 08/10/23 Midodrine [ProAmatine] 5 mg PO DAILY 08/10/23 08/10/23 Previous Rx's Medication Instructions Recorded Atorvastatin [Lipitor] 80 mg PO HS #30 tab 09/25/15 Aspirin 81 mg PO DAILY #30 chew 07/07/17 Nitroglycerin Sl Tabs [Nitrostat] 0.4 mg SUBLINGUAL Q5M PRN #25 tab 07/07/17 Insulin Degludec [Tresiba 50 units SQ HS #0 08/15/23 Flextouch U-200 Pen] Allergies Allergy/AdvReac Type Severity Reaction Status Date / Time No Known Allergies Allergy Verified 08/10/23 12:12 Review of Systems ROS Statement: Those systems with pertinent positive or pertinent negative responses have been documented in the HPI. ROS Other: All systems not noted in ROS Statement are negative. 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 09/24/15 PCI with stent. Other surgical hx: 2001 cardiac cath, R shoulder surgery, umbilical hernia repair, surgery for sleep apnea & cataract R eye. COLONOSCOPY, Past Anesthesia/Blood Transfusion Reactions: Postoperative Nausea & Vomiting (PONV) Date of Last Stent Placement:: 2019 Past Psychological History: No Psychological Hx Reported Smoking Status: Former smoker Past Alcohol Use History: None Reported Past Drug Use History: None Reported - Past Family History Father Family Medical History: Cancer Additional Family Medical History / Comment(s): Prostate cancer. Father of heart problems at the age of 83 yrs. Mother Additional Family Medical History / Comment(s): Mother was a nurse and contracted hepatitis C from a needle stick. She of liver problems at age 78 yrs.. General Exam Limitations: no limitations General appearance: alert, in no apparent distress Head exam: Present: normocephalic, other (Scalp laceration above left eyebrow measuring 2 cm in length. Mild oozing) Eye exam: Present: normal appearance, PERRL, EOMI. Absent: scleral icterus, conjunctival injection, periorbital swelling ENT exam: Present: normal exam, mucous membranes moist Neck exam: Present: normal inspection. Absent: tenderness, meningismus, lymphadenopathy Respiratory exam: Present: normal lung sounds bilaterally. Absent: respiratory distress, wheezes, rales, rhonchi, stridor Cardiovascular Exam: Present: regular rate, normal rhythm, normal heart sounds. Absent: systolic murmur, diastolic murmur, rubs, gallop, clicks GI/Abdominal exam: Present: soft, normal bowel sounds. Absent: distended, tenderness, guarding, rebound, rigid Extremities exam: Present: normal inspection, full ROM, normal capillary refill. Absent: tenderness, pedal edema, joint swelling, calf tenderness Back exam: Present: normal inspection Neurological exam: Present: alert, oriented X3, CN II-XII intact Psychiatric exam: Present: normal affect, normal mood Skin exam: Present: warm, dry, intact, normal color. Absent: rash Course Vital Signs 08/10/23 08/10/23 08/10/23 08:46 14:14 17:26 Temperature 97.6 F 98.9 F Pulse Rate 80 80 81 Respiratory 18 16 18 Rate Blood Pressure 176/96 95/54 122/71 O2 Sat by Pulse 99 98 96 Oximetry Medical Decision Making - Medical Decision Making Was pt. sent in by a medical professional or institution ([facility], [facility], urgent care, hospital, or senior living...) When possible be specific @ -No Did you speak to anyone other than the patient for history (EMS, parent, family, police, friend...)? What history was obtained from this source @ -Spoke with EMS and the patient's Did you review nursing and triage notes (agree or disagree)? Why? @ -I reviewed and agree with nursing and triage notes Were old charts reviewed (outside hosp., previous admission, EMS record, old EKG, old radiological studies, urgent care reports/EKG's, senior living records)? Report findings @ -No old charts were reviewed Differential Diagnosis (chest pain, altered mental status, abdominal pain women, abdominal pain men, vaginal bleeding, weakness, fever, dyspnea, syncope, headache, dizziness, GI bleed, back pain, seizure, CVA, palpatations, mental health, musculoskeletal)? @ -Differential Weakness: Hypoglycemia, shock, sepsis, hyponatremia, anemia, infection, AL, ETOH, adverse medicine reaction, overdose, stroke, this is not meant to be an all-inclusive list. EKG interpreted by me (3pts min.). @ -Yes and demonstrates sinus rhythm with a rate of 76. CA interval 155. QRS 102. QTc of 442. No acute ST segment elevations or depressions X-rays interpreted by me (1pt min.). @ -Yes and demonstrates no acute injuries CT interpreted by me (1pt min.). @ -Yes and demonstrates no acute injuries U/S interpreted by me (1pt. min.). @ -None done What testing was considered but not performed or refused? (CT, X-rays, U/S, labs)? Why? @ -None What meds were considered but not given or refused? Why? @ -None Did you discuss the management of the patient with other professionals (professionals i.e. , PA, END FRAZER, lab, RT, psych nurse, social media community manager, shirt turner, t eacher, parcel post officer, residential case manager)? Give summary @ -Spoke with Dr. Najera who will admit the patient Was smoking cessation discussed for >3mins.? @ -No Was critical care preformed (if so, how long)? @ -No Were there social determinants of health that impacted care today? How? (Homelessness, low income, unemployed, alcoholism, drug addiction, transportation, low edu. Level, literacy, decrease access to med. care, long-term, rehab)? @ -No Was there de-escalation of care discussed even if they declined (Discuss DNR or withdrawal of care, Hospice)? DNR status @ -No What co-morbidities impacted this encounter? (DM, HTN, Smoking, COPD, CAD, Cancer, CVA, ARF, Chemo, Hep., AIDS, mental health diagnosis, sleep apnea, morbid obesity)? @ -Parkinson's Was patient admitted / discharged? Hospital course, mention meds given and route, prescriptions, significant lab abnormalities, going to OR and other pertinent info. @ -Upon arrival patient was seen and evaluated in room 2. Thorough history and physical exam was performed. Patient is sent for CT and x-ray imaging. Results return and are without injury. Discussed results with the patient. He is adamant that he wants to go home. We do attempt to get the patient up to ambulate him however he is incredibly weak. I did recommend admission for which the patient was agreeable. Laboratory studies were conducted. Spoke with Dr. Najera who will admit the patient Undiagnosed new problem with uncertain prognosis? @ -Yes Drug Therapy requiring intensive monitoring for toxicity (Heparin, Nitro, Insulin, Cardizem)? @ -No Were any procedures done? @ -No Diagnosis/symptom? @ -Acute fall, blunt head trauma, left scalp laceration, possible exacerbation of Parkinson's Acute, or Chronic, or Acute on Chronic? @Acute Uncomplicated (without systemic symptoms) or Complicated (systemic symptoms)? @ -Complicated Side effects of treatment? @ -No Exacerbation, Progression, or Severe Exacerbation? @ -No Poses a threat to life or bodily function? How? (Chest pain, USA, AL, pneumonia, PE, COPD, DKA, ARF, appy, cholecystitis, CVA, Diverticulitis, Homicidal, Suicidal, threat to staff... and all critical care pts) @ -No - Lab Data Result diagrams: 08/14/23 05:15 08/14/23 05:15 Lab Results 08/10/23 08/10/23 08/10/23 Range/Units 10:20 10:20 10:20 WBC 10.9 H (3.8-10.6) k/uL RBC 5.12 (4.30-5.90) m/uL Hgb 15.5 (13.0-17.5) gm/dL Hct 44.6 (39.0-53.0) % MCV 87.2 (80.0-100.0) fL MCH 30.2 (25.0-35.0) pg MCHC 34.6 (31.0-37.0) g/dL RDW 13.6 (11.5-15.5) % Plt Count 258 (150-450) k/uL MPV 7.8 Immature Gran % (Auto) % Absolute Nucleated RBC % Neutrophils % 77 % Lymphocytes % 13 % Monocytes % 5 % Eosinophils % 2 % Basophils % 1 % Immature Gran # (0.00-0.04) X 10*3/uL Neutrophils # 8.4 H (1.3-7.7) k/uL Lymphocytes # 1.4 (1.0-4.8) k/uL Monocytes # 0.6 (0-1.0) k/uL Eosinophils # 0.3 (0-0.7) k/uL Basophils # 0.1 (0-0.2) k/uL NRBC/100 WBC Diff (0.00-0.01) X 10*3/uL Sodium 141 (137-145) mmol/L Potassium 3.6 (3.5-5.1) mmol/L Chloride 103 (98-107) mmol/L Carbon Dioxide 25 (22-30) mmol/L Anion Gap 13 mmol/L BUN 15 (9-20) mg/dL Creatinine 0.55 L (0.66-1.25) mg/dL Est GFR (CKD-EPI) (>=60) Est GFR (CKD-EPI)AfAm >90 (>60 ml/min/1.73 sqM) Est GFR (CKD-EPI)NonAf >90 (>60 ml/min/1.73 sqM) BUN/Creatinine Ratio (12.00-20.00) Ratio Glucose 87 (74-99) mg/dL POC Glucose (mg/dL) (70-110) mg/dL POC Glu [employer] T[employer] ID Estimated Ave Glu mg/dL mg/dL Hemoglobin A1c (<=6.0) % Lactic Ac Sepsis Rflx Plasma Lactic Acid Josh 2.5 H* (0.7-2.0) mmol/L Calcium 9.5 (8.4-10.2) mg/dL Magnesium 1.8 (1.6-2.3) mg/dL Total Bilirubin 1.1 (0.2-1.3) mg/dL AST 25 (17-59) U/L ALT 22 (4-49) U/L Alkaline Phosphatase 94 (38-126) U/L Troponin I (0.000-0.034) ng/mL Total Protein 7.2 (6.3-8.2) g/dL Albumin 4.5 (3.5-5.0) g/dL Urine Color Urine Appearance (Clear) Urine pH (5.0-8.0) Ur Specific [place] (1.001-1.035) Urine Protein (Negative) Urine Glucose (UA) (Negative) Urine Ketones (Negative) Urine Blood (Negative) Urine Nitrite (Negative) Urine Bilirubin (Negative) Urine Urobilinogen (<2.0) mg/dL Ur Leukocyte Esterase (Negative) 08/10/23 08/10/23 08/10/23 Range/Units 10:20 10:20 10:42 WBC (3.8-10.6) k/uL RBC (4.30-5.90) m/uL Hgb (13.0-17.5) gm/dL Hct (39.0-53.0) % MCV (80.0-100.0) fL MCH (25.0-35.0) pg MCHC (31.0-37.0) g/dL RDW (11.5-15.5) % Plt Count (150-450) k/uL MPV Immature Gran % (Auto) % Absolute Nucleated RBC % Neutrophils % % Lymphocytes % % Monocytes % % Eosinophils % % Basophils % % Immature Gran # (0.00-0.04) X 10*3/uL Neutrophils # (1.3-7.7) k/uL Lymphocytes # (1.0-4.8) k/uL Monocytes # (0-1.0) k/uL Eosinophils # (0-0.7) k/uL Basophils # (0-0.2) k/uL NRBC/100 WBC Diff (0.00-0.01) X 10*3/uL Sodium (137-145) mmol/L Potassium (3.5-5.1) mmol/L Chloride (98-107) mmol/L Carbon Dioxide (22-30) mmol/L Anion Gap mmol/L BUN (9-20) mg/dL Creatinine (0.66-1.25) mg/dL Est GFR (CKD-EPI) (>=60) Est GFR (CKD-EPI)AfAm (>60 ml/min/1.73 sqM) Est GFR (CKD-EPI)NonAf (>60 ml/min/1.73 sqM) BUN/Creatinine Ratio (12.00-20.00) Ratio Glucose (74-99) mg/dL POC Glucose (mg/dL) (70-110) mg/dL POC Glu Back T[employer] ID Estimated Ave Glu mg/dL mg/dL Hemoglobin A1c (<=6.0) % Lactic Ac Sepsis Rflx Y Plasma Lactic Acid Josh (0.7-2.0) mmol/L Calcium (8.4-10.2) mg/dL Magnesium (1.6-2.3) mg/dL Total Bilirubin (0.2-1.3) mg/dL AST (17-59) U/L ALT (4-49) U/L Alkaline Phosphatase (38-126) U/L Troponin I <0.012 (0.000-0.034) ng/mL Total Protein (6.3-8.2) g/dL Albumin (3.5-5.0) g/dL Urine Color Light Yellow Urine Appearance Clear (Clear) Urine pH 6.0 (5.0-8.0) Ur Specific [place] 1.026 (1.001-1.035) Urine Protein Negative (Negative) Urine Glucose (UA) 4+ H (Negative) Urine Ketones 1+ H (Negative) Urine Blood Negative (Negative) Urine Nitrite Negative (Negative) Urine Bilirubin Negative (Negative) Urine Urobilinogen <2.0 (<2.0) mg/dL Ur Leukocyte Esterase Negative (Negative) 08/10/23 08/10/23 08/10/23 Range/Units 13:19 18:29 20:30 WBC (3.8-10.6) k/uL RBC (4.30-5.90) m/uL Hgb (13.0-17.5) gm/dL Hct (39.0-53.0) % MCV (80.0-100.0) fL MCH (25.0-35.0) pg MCHC (31.0-37.0) g/dL RDW (11.5-15.5) % Plt Count (150-450) k/uL MPV Immature Gran % (Auto) % Absolute Nucleated RBC % Neutrophils % % Lymphocytes % % Monocytes % % Eosinophils % % Basophils % % Immature Gran # (0.00-0.04) X 10*3/uL Neutrophils # (1.3-7.7) k/uL Lymphocytes # (1.0-4.8) k/uL Monocytes # (0-1.0) k/uL Eosinophils # (0-0.7) k/uL Basophils # (0-0.2) k/uL NRBC/100 WBC Diff (0.00-0.01) X 10*3/uL Sodium (137-145) mmol/L Potassium (3.5-5.1) mmol/L Chloride (98-107) mmol/L Carbon Dioxide (22-30) mmol/L Anion Gap mmol/L BUN (9-20) mg/dL Creatinine (0.66-1.25) mg/dL Est GFR (CKD-EPI) (>=60) Est GFR (CKD-EPI)AfAm (>60 ml/min/1.73 sqM) Est GFR (CKD-EPI)NonAf (>60 ml/min/1.73 sqM) BUN/Creatinine Ratio (12.00-20.00) Ratio Glucose (74-99) mg/dL POC Glucose (mg/dL) 112 H 181 H (70-110) mg/dL POC Glu [employer] T[employer] ID Fina Bravo Kalib Estimated [address] Glu mg/dL mg/dL Hemoglobin A1c (<=6.0) % Lactic Ac Sepsis Rflx Plasma Lactic Acid Josh 1.5 (0.7-2.0) mmol/L Calcium (8.4-10.2) mg/dL Magnesium (1.6-2.3) mg/dL Total Bilirubin (0.2-1.3) mg/dL AST (17-59) U/L ALT (4-49) U/L Alkaline Phosphatase (38-126) U/L Troponin I (0.000-0.034) ng/mL Total Protein (6.3-8.2) g/dL Albumin (3.5-5.0) g/dL Urine Color Urine Appearance (Clear) Urine pH (5.0-8.0) Ur Specific [place] (1.001-1.035) Urine Protein (Negative) Urine Glucose (UA) (Negative) Urine Ketones (Negative) Urine Blood (Negative) Urine Nitrite (Negative) Urine Bilirubin (Negative) Urine Urobilinogen (<2.0) mg/dL Ur Leukocyte Esterase (Negative) 08/11/23 08/11/23 08/11/23 Range/Units 05:40 06:24 06:24 WBC 10.82 H (3.8-10.6) k/uL RBC 4.63 (4.30-5.90) m/uL Hgb 13.5 (13.0-17.5) gm/dL Hct 40.5 (39.0-53.0) % MCV 87.5 (80.0-100.0) fL MCH 29.2 (25.0-35.0) pg MCHC 33.3 (31.0-37.0) g/dL RDW 13.2 (11.5-15.5) % Plt Count 264 (150-450) k/uL MPV 10.2 Immature Gran % (Auto) 0.40 % Absolute Nucleated RBC 0 % Neutrophils % 65.0 % Lymphocytes % 21.5 % Monocytes % 8.9 % Eosinophils % 2.9 % Basophils % 1.3 % Immature Gran # 0.04 (0.00-0.04) X 10*3/uL Neutrophils # 7.04 (1.3-7.7) k/uL Lymphocytes # 2.33 (1.0-4.8) k/uL Monocytes # 0.96 (0-1.0) k/uL Eosinophils # 0.31 (0-0.7) k/uL Basophils # 0.14 H (0-0.2) k/uL NRBC/100 WBC Diff 0 (0.00-0.01) X 10*3/uL Sodium (137-145) mmol/L Potassium (3.5-5.1) mmol/L Chloride (98-107) mmol/L Carbon Dioxide (22-30) mmol/L Anion Gap mmol/L BUN (9-20) mg/dL Creatinine (0.66-1.25) mg/dL Est GFR (CKD-EPI) (>=60) Est GFR (CKD-EPI)AfAm (>60 ml/min/1.73 sqM) Est GFR (CKD-EPI)NonAf (>60 ml/min/1.73 sqM) BUN/Creatinine Ratio (12.00-20.00) Ratio Glucose (74-99) mg/dL POC Glucose (mg/dL) 73 (70-110) mg/dL POC Glu Back T[employer] ID Kameron Larkin Estimated [address] Glu mg/dL 143 mg/dL Hemoglobin A1c 6.6 H (<=6.0) % Lactic Ac Sepsis Rflx Plasma Lactic Acid Josh (0.7-2.0) mmol/L Calcium (8.4-10.2) mg/dL Magnesium (1.6-2.3) mg/dL Total Bilirubin (0.2-1.3) mg/dL AST (17-59) U/L ALT (4-49) U/L Alkaline Phosphatase (38-126) U/L Troponin I (0.000-0.034) ng/mL Total Protein (6.3-8.2) g/dL Albumin (3.5-5.0) g/dL Urine Color Urine Appearance (Clear) Urine pH (5.0-8.0) Ur Specific [place] (1.001-1.035) Urine Protein (Negative) Urine Glucose (UA) (Negative) Urine Ketones (Negative) Urine Blood (Negative) Urine Nitrite (Negative) Urine Bilirubin (Negative) Urine Urobilinogen (<2.0) mg/dL Ur Leukocyte Esterase (Negative) 08/11/23 08/11/23 08/11/23 Range/Units 06:24 11:48 12:33 WBC (3.8-10.6) k/uL RBC (4.30-5.90) m/uL Hgb (13.0-17.5) gm/dL Hct (39.0-53.0) % MCV (80.0-100.0) fL MCH (25.0-35.0) pg MCHC (31.0-37.0) g/dL RDW (11.5-15.5) % Plt Count (150-450) k/uL MPV Immature Gran % (Auto) % Absolute Nucleated RBC % Neutrophils % % Lymphocytes % % Monocytes % % Eosinophils % % Basophils % % Immature Gran # (0.00-0.04) X 10*3/uL Neutrophils # (1.3-7.7) k/uL Lymphocytes # (1.0-4.8) k/uL Monocytes # (0-1.0) k/uL Eosinophils # (0-0.7) k/uL Basophils # (0-0.2) k/uL NRBC/100 WBC Diff (0.00-0.01) X 10*3/uL Sodium 142 (137-145) mmol/L Potassium 3.3 L (3.5-5.1) mmol/L Chloride 104 (98-107) mmol/L Carbon Dioxide 25.9 (22-30) mmol/L Anion Gap 12.10 H mmol/L BUN 20.7 (9-20) mg/dL Creatinine 0.7 (0.66-1.25) mg/dL Est GFR (CKD-EPI) 97 (>=60) Est GFR (CKD-EPI)AfAm (>60 ml/min/1.73 sqM) Est GFR (CKD-EPI)NonAf (>60 ml/min/1.73 sqM) BUN/Creatinine Ratio 29.57 H (12.00-20.00) Ratio Glucose 62 L (74-99) mg/dL POC Glucose (mg/dL) 66 L 101 (70-110) mg/dL POC Glu [employer] Sandhya Moore Allison [address]imated [address] Glu mg/dL mg/dL Hemoglobin A1c (<=6.0) % Lactic Ac Sepsis Rflx Plasma Lactic Acid Josh (0.7-2.0) mmol/L Calcium 9.2 (8.4-10.2) mg/dL Magnesium (1.6-2.3) mg/dL Total Bilirubin (0.2-1.3) mg/dL AST (17-59) U/L ALT (4-49) U/L Alkaline Phosphatase (38-126) U/L Troponin I (0.000-0.034) ng/mL Total Protein (6.3-8.2) g/dL Albumin (3.5-5.0) g/dL Urine Color Urine Appearance (Clear) Urine pH (5.0-8.0) Ur Specific [place] (1.001-1.035) Urine Protein (Negative) Urine Glucose (UA) (Negative) Urine Ketones (Negative) Urine Blood (Negative) Urine Nitrite (Negative) Urine Bilirubin (Negative) Urine Urobilinogen (<2.0) mg/dL Ur Leukocyte Esterase (Negative) Disposition Clinical Impression: Fall, Blunt head trauma, Facial laceration, Parkinson disease Disposition: ADMITTED IP TO THIS [facility] Condition: Stable Is patient prescribed a controlled substance at d/c from ED?: No Time of Disposition: 12:11 Decision to Admit Reason: Admit from EC Decision Date: 08/10/23 Decision Time: 12:52
[2023-08-10 10:26] LABS: Appearance,Urine Clear (Clear); Bilirubin,Urine Negative (Negative); Blood,Urine Negative (Negative); Color,Urine Light Yellow; Glucose,Urine (UA) 4+ (Negative); Ketones,Urine 1+ (Negative); Leukocyte Esterase,Urine Negative (Negative); Nitrite,Urine Negative (Negative); Protein,Urine Negative (Negative); Specific Gravity,Urine 1.026 (1.001-1.035); Urobilinogen,Urine <2.0 mg/dL (<2.0)
--- NOTE | 2023-08-10 10:33 | CT ---
EXAMINATION TYPE: CT brain stephanie wo con DATE OF EXAM: 08/10/2023 COMPARISON: 04/15/2022 HISTORY: 73-year-old male pain after fall. Laceration above left eye CT DLP: 1353.9 mGycm Automated exposure control for dose reduction was used. Technique: Examination of the head was done in axial plane without intravenous contrast. Coronal and sagittal reconstructions performed. CT of the cervical spine was obtained in axial plane without intravenous injection of contrast mater ial. Coronal and sagittal reformatted images were obtained from the axial views for evaluation of f ractures, spinal alignment and canal. FINDINGS: Head: There is no evidence of acute intracranial hemorrhage, acute ischemic changes, mass, mass-effect, or extra-axial fluid collection. There is no effacement of cerebral sulci or basal subarachnoid cister ns. Asymmetrically smaller right lateral ventricle is unchanged, likely congenital variation. Mild ve ntricular prominence likely central cerebral atrophy. There is no midline shift. Yousif-white matter d istinction is preserved. Atherosclerotic calcifications within the bilateral carotid siphons. Prominent atherosclerotic calcif ications redemonstrated are small V4 segment left vertebral artery. Moderate patchy periventricular white matter hypodensities may be slightly increased from 2021. Left paramedian anterior frontal and medial left supraorbital soft tissue contusion. No underlying ca lvarial fracture. Underlying orbits and globes appear intact. Mastoid air cells well pneumatized. Cervical spine: No craniocervical junction abnormality, predental space widening, or prevertebral soft tissue swellin g. Degenerative change at the C1 dens articulation. Moderate spondylotic changes especially mid to lower cervical spine characterized by degenerative dis c disease as well as facet and uncovertebral joint arthropathy. There is a levoconvex curvature cente red at along the cervical spine. Disc osteophyte complexes may contribute to at least a moderate spinal canal stenosis at C5-C6 and C6 /C7. MRI could further evaluate if clinically indicated. At least a mild spinal canal stenosis at C3- C4. At C5-C6, severe right and moderate to severe left neuroforaminal stenosis. At C6-C7, moderate to severe left neural foraminal stenosis. Additional variable moderate neuroforaminal stenoses at other levels. No acute fracture seen of the cervical spine. Alignment is maintained. Sagittal and coronal reformatted images confirm above findings. COMBINED IMPRESSION: 1. Left supraorbital soft tissue contusion/hematoma. No acute intracranial abnormality seen. 2. Moderate patchy chronic small vessel ischemic disease and mild cerebral atrophy. 3. No acute fracture or malalignment of the cervical spine. Moderate to advanced spondylotic change a s outlined above. Cervical spine MRI can assess the degree of spinal canal stenoses. At least moderat e at C5-C6 and C6/C7.
[2023-08-10 10:40] LABS: ALT 22 U/L (4-49); AST 25 U/L (17-59); African American GFR (CKD) >90 (>60 ml/min/1.73 sqM); Albumin 4.5 g/dL (3.5-5.0); Alkaline Phosphatase 94 U/L (38-126); Anion Gap 13 mmol/L; Blood Urea Nitrogen 15 mg/dL (9-20); Calcium 9.5 mg/dL (8.4-10.2); Carbon Dioxide 25 mmol/L (22-30); Chloride 103 mmol/L (98-107); Glucose 87 mg/dL (74-99); Magnesium 1.8 mg/dL (1.6-2.3); Non-African American GFR(CKD) >90 (>60 ml/min/1.73 sqM); Potassium 3.6 mmol/L (3.5-5.1); Sodium 141 mmol/L (137-145); Total Bilirubin 1.1 mg/dL (0.2-1.3); Total Protein 7.2 g/dL (6.3-8.2)
[2023-08-10 10:41] LABS: Basophils # (A) 0.1 k/uL (0-0.2); Basophils % (A) 1 %; Eosinophils # (A) 0.3 k/uL (0-0.7); Eosinophils % (A) 2 %; HCT 44.6 % (39.0-53.0); HGB 15.5 gm/dL (13.0-17.5); Lymphocytes # (A) 1.4 k/uL (1.0-4.8); Lymphocytes % (A) 13 %; MCH 30.2 pg (25.0-35.0); MCHC 34.6 g/dL (31.0-37.0); MCV 87.2 fL (80.0-100.0); Mean Platelet Volume 7.8; Monocytes # (A) 0.6 k/uL (0-1.0); Monocytes % (A) 5 %; Neutrophils # (A) 8.4 k/uL (1.3-7.7); Neutrophils % (A) 77 %; Platelet Count 258 k/uL (150-450); RBC 5.12 m/uL (4.30-5.90); RDW 13.6 % (11.5-15.5); WBC 10.9 k/uL (3.8-10.6)
--- NOTE | 2023-08-10 11:57 | XR ---
EXAMINATION TYPE: XR shoulder complete RT DATE OF EXAM: 08/10/2023 11:38 AM CLINICAL INDICATION:Male, 73 years old with history of fall; [facility] COMPARISON: None TECHNIQUE: XR shoulder complete RT; examined in AP, internally rotated and scapular Y projections. FINDINGS: No evidence of acute osseous pathology, joint dislocation, or soft tissue swelling. The remaining po rtions of the visualized chest are unremarkable. Degeneration changes of the acromion, distal clavic le with osteophyte formation. There is osteophyte formation of the glenoid and humeral head. There is joint space narrowing of glenohumeral joint IMPRESSION: 1. No acute osseous pathology. 2. 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
--- NOTE | 2023-08-10 11:58 | XR ---
EXAMINATION TYPE: XR knee complete bilateral DATE OF EXAM: 08/10/2023 11:38 AM CLINICAL INDICATION:Male, 73 years old with history of fall; [facility] COMPARISON: None. TECHNIQUE: XR knee complete bilateral; examined in Frontal, lateral and oblique projections. FINDINGS: No evidence of any acute osseous pathology, soft tissue swelling, or joint effusion is no carlos. Tricompartmental osteophyte formation involving the femoral condyles, tibial plateau and patella . Mild joint space narrowing. Severe atherosclerosis of the arterial vasculature. IMPRESSION: 1. No acute osseous pathology. 2. Mild to moderate tricompartmental osteoarthritic changes bilaterally.
[2023-08-10] MEDS: TOPICAL SKIN ADHESIVE 1 EACH AMP TOPICAL ONE (12:10)
[2023-08-10] MEDS ORDERED: NALOXONE 0.4 MG/ML 1 ML VIAL IV PRN (12:52)
[2023-08-10] MEDS ORDERED: ACETAMINOPHEN TAB 325 MG TAB PO PRN (12:52)
[2023-08-10] MEDS: MEMANTINE 10 MG TAB PO SCH (14:25)
[2023-08-10] MEDS: FLUDROCORTISONE 0.1 MG TAB PO SCH (14:26)
[2023-08-10] MEDS: DONEPEZIL 10 MG TAB PO SCH (14:26)
[2023-08-10] MEDS: METOPROLOL SUCCINATE (ER) 50 MG TAB.ER.24H PO SCH (14:26)
[2023-08-10] MEDS: MIDODRINE 5 MG TAB PO SCH (14:26)
[2023-08-10] MEDS: CARBIDOPA-LEVODOPA ER 50-200MG 1 EACH TABLET.ER PO SCH (14:28)
[2023-08-10] MEDS ORDERED: DEXTROSE 50% SYRINGE 50 ML IVP PRN ×2 (18:01)
[2023-08-10 18:30] LABS: Glucose,Whole Blood 112 mg/dL (70-110)
[2023-08-10] MEDS: metFORMIN 500 MG TAB PO SCH (18:31)
[2023-08-10 20:34] LABS: Glucose,Whole Blood 181 mg/dL (70-110)
[2023-08-10] MEDS: ATORVASTATIN 80 MG TAB PO SCH (21:30)
[2023-08-10] MEDS: INSULIN DETEMIR (LEVEMIR) 100 UNIT/ML SYR SQ SCH (21:30)
[2023-08-10] MEDS: INSULIN ASPART (NovoLOG) 100 UNIT/ML VIAL SQ SCH (21:31)
[2023-08-11 05:42] LABS: Glucose,Whole Blood 73 mg/dL (70-110)
[2023-08-11] MEDS: ASPIRIN 81 MG PO SCH (08:24)
[2023-08-11] MEDS: DAPAGLIFLOZIN PROPANEDIOL 10 MG TABLET PO SCH (08:25)
[2023-08-11] MEDS: DULoxetine HCL 60 MG CAPSULE.DR PO SCH (08:25)
[2023-08-11] MEDS: CLOPIDOGREL 75 MG TAB PO SCH (08:25)
--- NOTE | 2023-08-11 08:42 | P.HPIM ---
History of Present Illness H&P Date: 08/11/23 Chief Complaint: Fall This is a 73-year-old male with a history of Parkinson's disease who presented to the emergency department after a fall. Patient reports he had got up from his bed and had a syncopal episode and fell. Patient reports he fell and hit his head on the hardwood floor and has a laceration above his left eye. Patient also reports bilateral knee pain. He normally does ambulate with a walker however did not have it prior to fall. Patient lives with his . Patient seen this morning laying in bed, reports he is still feeling weak. Also reports some issues with urination and not being able to go. Further medical history as noted below. Review of Systems Constitutional: Reports weakness, Denies chills, Denies fever Cardiovascular: Denies chest pain, Denies dyspnea on exertion Respiratory: Denies cough, Denies dyspnea Gastrointestinal: Denies abdominal pain, Denies nausea, Denies vomiting Musculoskeletal: Denies arm numbness/tingling, Denies leg numbness/tingling Musculoskeletal: bilateral: knee pain Neurological: Reports balance difficulties, Reports weakness, Denies headaches Past Medical History Past Medical History: Coronary Artery Disease (CAD), Chest Pain / Angina, Diabetes Mellitus, Hyperlipidemia, Hypertension, Myocardial Infarction (NC), Neurologic Disorder, Osteoarthritis (OA) Additional Past Medical History / Comment(s): bilateral neuropathy in feet, bilateral diabetic retinopathy, bilateral macular degeneration, bilateral eye cataract, sleep apnea but had surgery to correct, , PARKINSON'S, STARTING OF DEMENTIA Last Myocardial Infarction Date:: 06/28/2019 History of Any Multi-Drug Resistant Organisms: None Reported Past Surgical History: Adenoidectomy, Appendectomy, Ear Surgery, Heart Cat heterization, Heart Catheterization With Stent, Hernia Repair, Orthopedic Surgery, Tonsillectomy Additional Past Surgical History / Comment(s): 10-16-15 heart cath w/2 stents to lad. 09/24/15 PCI with stent. Other surgical hx: 2001 cardiac cath, R shoulder surgery, umbilical hernia repair, surgery for sleep apnea & cataract R eye. COLONOSCOPY, Past Anesthesia/Blood Transfusion Reactions: Postoperative Nausea & Vomiting (PONV) Date of Last Stent Placement:: 2019 Past Psychological History: No Psychological Hx Reported Additional Psychological History / Comment(s): Pt believes he has PTSD. He is a . Smoking Status: Former smoker Past Alcohol Use History: None Reported Additional Past Alcohol Use History / Comment(s): Quit at age 28, smoked only for a few yrs. Pt quit drinking in 1983 Past Drug Use History: None Reported - Past Family History Father Family Medical History: Cancer Additional Family Medical History / Comment(s): Prostate cancer. Father of heart problems at the age of 83 yrs. Mother Additional Family Medical History / Comment(s): Mother was a nurse and contracted hepatitis C from a needle stick. She of liver problems at age 78 yrs.. Medications and Allergies Home Medications Medication Instructions Recorded Confirmed Type DULoxetine HCL [Cymbalta] 60 mg PO DAILY 09/22/15 08/10/23 History Metoprolol Succinate [Toprol XL] 50 mg PO BID 09/22/15 08/10/23 History Atorvastatin [Lipitor] 80 mg PO HS #30 tab 09/25/15 08/10/23 Rx Clopidogrel Bisulfate [Plavix] 75 mg PO DAILY 07/05/17 08/10/23 History Aspirin 81 mg PO DAILY #30 chew 07/07/17 08/10/23 Rx Nitroglycerin Sl Tabs [Nitrostat] 0.4 mg SUBLINGUAL Q5M PRN #25 tab 07/07/17 08/10/23 Rx Carbidopa-Levodopa ER 50-200Mg 1.5 tab PO BID 10/20/21 08/10/23 History [Sinemet CR 50-200 mg] Donepezil HCl [Aricept] 10 mg PO BID 10/20/21 08/10/23 History Dulaglutide [Trulicity] 0.5 mg SQ TURNER 10/20/21 08/10/23 History Empagliflozin [Jardiance] 25 mg PO DAILY 10/20/21 08/10/23 History Memantine [Namenda] 10 mg PO BID 10/20/21 08/10/23 History Multivit-Min/Folic/Vit K/Lycop 1 tab PO DAILY 10/20/21 08/10/23 History [Men's Multivitamin Tablet] metFORMIN HCL ER [Glucophage XR] 1,500 mg PO W/SUPPER 04/15/22 08/10/23 History Fludrocortisone Acetate 0.1 mg PO DAILY 08/10/23 08/10/23 History Insulin Degludec [Tresiba 76 units SQ HS 08/10/23 08/10/23 History Flextouch U-200 Pen] Midodrine [ProAmatine] 5 mg PO DAILY 08/10/23 08/10/23 History Allergies Allergy/AdvReac Type Severity Reaction Status Date / Time No Known Allergies Allergy Verified 08/10/23 12:12 Physical Exam Vitals: Vital Signs Temp Pulse Pulse Resp BP BP Pulse Ox 08/11/23 01:45 97.7 F 75 18 105/65 97 08/10/23 19:11 98.7 F 81 18 92/55 97 08/10/23 17:55 97.6 F 93 18 134/77 94 L 08/10/23 17:26 98.9 F 81 18 122/71 96 08/10/23 14:14 80 16 95/54 98 08/10/23 08:46 97.6 F 80 18 176/96 99 Intake and Output 08/10/23 08/11/23 08/11/23 22:59 06:59 14:59 Output Total 150 150 Balance -150 -150 Output: Urine 150 150 Other: Voiding Method Urinal Weight 99.79 kg - Constitutional General appearance: cooperative, no acute distress - EENT Eyes: PERRLA - Neck Neck: no lymphadenopathy, normal ROM, no rigidity - Respiratory Respiratory: bilateral: CTA - Cardiovascular Rhythm: regular Heart sounds: normal: S1, S2 - Gastrointestinal General gastrointestinal: soft, no tenderness - Integumentary Ecchymosis around left eye, ecchymosis around bilateral knees - Musculoskeletal Musculoskeletal: generalized weakness - Psychiatric Psychiatric: A&O x's 3 Results CBC & Chem 7: 08/10/23 10:20 08/10/23 10:20 Labs: Abnormal Lab Results - Last 24 Hours (Table) 08/10/23 08/10/23 08/10/23 Range/Units 10:20 10:20 10:20 WBC 10.9 H (3.8-10.6) k/uL Neutrophils # 8.4 H (1.3-7.7) k/uL Creatinine 0.55 L (0.66-1.25) mg/dL POC Glucose (mg/dL) (70-110) mg/dL Plasma Lactic Acid Josh 2.5 H* (0.7-2.0) mmol/L Urine Glucose (UA) (Negative) Urine Ketones (Negative) 08/10/23 08/10/23 08/10/23 Range/Units 10:20 18:29 20:30 WBC (3.8-10.6) k/uL Neutrophils # (1.3-7.7) k/uL Creatinine (0.66-1.25) mg/dL POC Glucose (mg/dL) 112 H 181 H (70-110) mg/dL Plasma Lactic Acid Josh (0.7-2.0) mmol/L Urine Glucose (UA) 4+ H (Negative) Urine Ketones 1+ H (Negative) Thrombosis Risk Factor Assmnt - Choose All That Apply Any of the Below Risk Factors Present?: No Other Risk Factors: Yes Each Risk Factor Represents 3 Points: Age 75 years or older Thrombosis Risk Factor Assessment Total Risk Factor Score: 3 Thrombosis Risk Factor Assessment Level: Moderate Risk Assessment and Plan (1) Fall Current Visit: Yes Status: Acute Code(s): W19.XXXA - UNSPECIFIED FALL, INITIAL ENCOUNTER SNOMED Code(s): 0737270 (2) Facial laceration Current Visit: Yes Status: Acute Code(s): S01.81XA - LACERATION W/O FOREIGN BODY OF OTH PART OF HEAD, INIT ENCNTR SNOMED Code(s): 508836032 (3) Parkinson disease Current Visit: Yes Status: Acute Code(s): G20.A1 - PARKINSON'S DIS W/O DYSKINESIA, W/O MENTION OF FLUCTUATIONS SNOMED Code(s): 78327921 (4) Diabetes Current Visit: No Status: Acute Code(s): E11.9 - TYPE 2 DIABETES MELLITUS WITHOUT COMPLICATIONS SNOMED Code(s): 57710047 Plan: Continue home medications Bladder scan protocol PT and OT on consult, await their recommendations for discharge Patient seen and evaluated by nurse practitioner, physician in agreement with plan
[2023-08-11 11:20] LABS: Basophils # (A) 0.14 X 10*3/uL (0.00-0.10); Basophils % (A) 1.3 %; Eosinophils # (A) 0.31 X 10*3/uL (0.04-0.35); Eosinophils % (A) 2.9 %; HCT 40.5 % (39.6-50.0); HGB 13.5 g/dL (13.0-17.0); Lymphocytes # (A) 2.33 X 10*3/uL (0.90-5.00); Lymphocytes % (A) 21.5 %; MCH 29.2 pg (27.0-32.0); MCHC 33.3 g/dL (32.0-37.0); MCV 87.5 FL (80.0-97.0); Mean Platelet Volume 10.2 FL (9.5-12.2); Monocytes # (A) 0.96 X 10*3/uL (0.20-1.00); Monocytes % (A) 8.9 %; NRBC Per 100 WBC 0 X 10*3/uL (0.00-0.01); Neutrophils # (A) 7.04 X 10*3/uL (1.80-7.70); Platelet Count 264 X 10*3/uL (140-440); RBC 4.63 X 10*6/uL (4.40-5.60); RDW 13.2 % (11.5-14.5); WBC 10.82 X 10*3/uL (4.50-10.00)
[2023-08-11 11:38] LABS: BUN/Creat Ratio 29.57 Ratio (12.00-20.00); Blood Urea Nitrogen 20.7 mg/dL (9.0-27.0); Calcium 9.2 mg/dL (8.7-10.3); Carbon Dioxide 25.9 mmol/L (21.6-31.8); Chloride 104 mmol/L (96-109); Glucose 62 mg/dL (70-110); Potassium 3.3 mmol/L (3.5-5.5); Sodium 142 mmol/L (135-145)
[2023-08-11 11:50] LABS: Glucose,Whole Blood 66 mg/dL (70-110)
[2023-08-11 12:35] LABS: Glucose,Whole Blood 101 mg/dL (70-110)
[2023-08-11 16:39] LABS: Glucose,Whole Blood 114 mg/dL (70-110)
[2023-08-11 19:59] LABS: Glucose,Whole Blood 138 mg/dL (70-110)
[2023-08-12 05:52] LABS: Glucose,Whole Blood 58 mg/dL (70-110)
[2023-08-12 06:16] LABS: Glucose,Whole Blood 72 mg/dL (70-110)
[2023-08-12 07:02] LABS: Glucose,Whole Blood 72 mg/dL (70-110)
[2023-08-12 11:33] LABS: Glucose,Whole Blood 128 mg/dL (70-110)
--- NOTE | 2023-08-12 14:00 | P.PN ---
Subjective Progress Note Date: 08/12/23 This is a pleasant 73-year-old male patient of Dr. Erickson with a history of Parkinson's. Patient did fall reports having a syncopal episode at home with trauma to his head and has a laceration above his left eye. Patient is seen today sitting up at the bedside. He has no acute complaints. His bowels are moving he is urinating without difficulty. He is pending discharge to [facility] and does require 3 days of inpatient hospital stay before this can happen. Review of Systems Constitutional: Denied any fatigue denied any fever. Cardio vascular: denied any chest pain, palpitations Gastrointestinal: denied any nausea, vomiting, diarrhea Pulmonary: Denied any shortness of breath cough Neurologic denied any new focal deficits All inpatient medications were reviewed and appropriate changes in these medications as dictated in the interval history and assessment and plan. PHYSICAL EXAMINATION: GENERAL: The patient is alert and oriented x3, not in any acute distress. Well developed, well nourished. HEENT: Pupils are round and equally reacting to light. EOMI. No scleral icterus. No conjunctival pallor. Normocephalic, atraumatic. No pharyngeal erythema. No thyromegaly. CARDIOVASCULAR: S1 and S2 present. No murmurs, rubs, or gallops. PULMONARY: Chest is clear to auscultation, no wheezing or crackles. ABDOMEN: Soft, nontender, nondistended, normoactive bowel sounds. No palpable organomegaly. MUSCULOSKELETAL: No joint swelling or deformity. EXTREMITIES: No cyanosis, clubbing, or pedal edema. NEUROLOGICAL: Gross neurological examination did not reveal any focal deficits. SKIN: No rashes. Laceration above left eye, scabbed over with noted bruising around the left eye near the bridge of the nose. Assessment and Plan Syncopal episode and fall this could be due to orthostatic hypotension or vasovagal Facial laceration from the fall with no acute fracture noted History of Parkinson's disease with increasing weakness and debilitation physical therapy was consulted and patient does require discharge to subacute rehab and is considered for [facility] he does require 3 days of inpatient hospital stay and most likely discharge will happen on Tuesday. History of diabetes mellitus type 2 controlled patient did have episode of hypoglycemia and we decreased his at bedtime dose of Levemir continued Accu- Cheks ACHS as well as metformin. History of coronary artery disease with prior cardiac catheterization and stenting History of hypertension maintained on midodrine and Florinef patient to be continued on metoprolol History of hyperlipidemia History of peripheral neuropathy Former smoker Leukocytosis reactive GI prophylaxis DVT prophylaxis Do Not Resuscitate/Do Not Intubate The impression and plan of care has been dictated by Nurse Mariella Pra ctitioner as directed. Dr. Mary Ellen MD I have performed a history and physical examination and medical decision making of this patient, discussed the same with the dictator, and agree with the dictat ors assessment and plan as written, documented as a scribe. Based on total visit time, I have performed more than 50% of this visit. Objective - Vital Signs Vital signs: Vital Signs Temp 97.5 F L 08/12/23 07:00 Pulse 74 08/12/23 07:00 Resp 17 08/12/23 07:00 BP 114/71 08/12/23 07:00 Pulse Ox 93 L 08/12/23 02:00 FiO2 Intake & Output 08/11/23 08/12/23 08/12/23 18:59 06:59 18:59 Output Total 150 300 613 Balance -150 -300 -613 Output: Urine 150 300 475 Post Void Residual 138 Other: Voiding Method Urinal Urinal Urinal # Voids 1 # Bowel Movements 1 1 - Labs CBC & Chem 7: 08/11/23 06:24 08/11/23 06:24 Labs: Abnormal Lab Results - Last 24 Hours (Table) 08/11/23 08/11/23 08/12/23 Range/Units 16:37 19:58 05:44 POC Glucose (mg/dL) 114 H 138 H 58 L (70-110) mg/dL 08/12/23 Range/Units 11:32 POC Glucose (mg/dL) 128 H (70-110) mg/dL Assessment and Plan Time with Patient: Less than 30
[2023-08-12] MEDS: POTASSIUM CHLORIDE ER 20 MEQ TAB.ER PO STA (14:27)
[2023-08-12 16:16] LABS: Glucose,Whole Blood 166 mg/dL (70-110)
[2023-08-12 20:01] LABS: Glucose,Whole Blood 179 mg/dL (70-110)
[2023-08-12] MEDS: INSULIN DETEMIR (LEVEMIR) 100 UNIT/ML SYR SQ SCH (20:48)
[2023-08-13 05:59] LABS: Glucose,Whole Blood 100 mg/dL (70-110)
[2023-08-13 10:47] LABS: Blood Urea Nitrogen 16.7 mg/dL (9.0-27.0); Calcium 9.5 mg/dL (8.7-10.3); Carbon Dioxide 26.5 mmol/L (21.6-31.8); Chloride 106 mmol/L (96-109); Glucose 107 mg/dL (70-110); Potassium 3.7 mmol/L (3.5-5.5); Sodium 144 mmol/L (135-145)
[2023-08-13 11:18] LABS: Glucose,Whole Blood 130 mg/dL (70-110)
--- NOTE | 2023-08-13 16:08 | XR ---
EXAMINATION TYPE: XR chest 1V portable DATE OF EXAM: 08/13/2023 COMPARISON: NONE HISTORY: Shortness of breath TECHNIQUE: Single frontal view of the chest is obtained. FINDINGS: There is no focal air space opacity, pleural effusion, or pneumothorax seen. The cardiac silhouette size is within normal limits. The osseous structures are intact. Atherosclerotic change aorta. IMPRESSION: No acute process.
[2023-08-13 16:26] LABS: Glucose,Whole Blood 163 mg/dL (70-110)
--- NOTE | 2023-08-13 17:12 | PN ---
PROGRESS NOTE DATE OF SERVICE: 08/13/2023 SUBJECTIVE: This is a 73-year-old gentleman, who was admitted with fall and weakness, has facial laceration and ecchymosis around the left eye. The patient also had Parkinson's and gait dysfunction. PAST MEDICAL HISTORY: Reviewed. REVIEW OF SYSTEMS: Fourteen-point review is negative except as mentioned above. CURRENT MEDICATIONS: Reviewed include Lipitor, dose reviewed. PHYSICAL EXAMINATION: VITAL SIGNS: Pulse 80, blood pressure 126/73, and respirations 17. HEENT: Conjunctivae normal, otherwise left eye periorbital ecchymosis present. CARDIOVASCULAR: S1 and S2. RESPIRATIONS: Clear to auscultation. ABDOMEN: Soft. NERVOUS SYSTEM: Diffusely weak. LABORATORY DATA: Glucose 130, otherwise WBC 10.8 and potassium 3.3. IMAGING: Chest x-ray is not available. Other x-rays and CAT scan reviewed. ASSESSMENT: 1. Fall and syncope, rule out orthostatic hypotension. 2. Facial laceration and left periorbital ecchymosis. 3. Parkinson's. 4. Diabetes mellitus type 2. 5. Coronary artery disease. 6. Hypertension. 7. Hyperlipidemia. 8. Multiple medical issues. 9. No code, no CPR, no vent. RECOMMENDATIONS: Recommend to continue current management and continue symptomatic treatment. Otherwise, DVT prophylaxis. Monitor blood pressure and blood sugar closely. PT/OT evaluation. Chest x-ray. Overall prognosis guarded. Further recommendations to follow. See orders for details. MMODL / IJN: [id number] /
[2023-08-13 21:35] LABS: Glucose,Whole Blood 122 mg/dL (70-110)
[2023-08-14 06:14] LABS: Glucose,Whole Blood 74 mg/dL (70-110)
[2023-08-14] MEDS: MULTIVITAMINS, THERA 1 EACH TAB PO SCH (08:14)
[2023-08-14 10:03] LABS: Basophils # (A) 0.11 X 10*3/uL (0.00-0.10); Basophils % (A) 1.3 %; Eosinophils % (A) 4.7 %; HCT 42.3 % (39.6-50.0); HGB 13.8 g/dL (13.0-17.0); Lymphocytes # (A) 2.52 X 10*3/uL (0.90-5.00); Lymphocytes % (A) 29.7 %; MCH 29.4 pg (27.0-32.0); MCHC 32.6 g/dL (32.0-37.0); Mean Platelet Volume 10.8 FL (9.5-12.2); Monocytes # (A) 0.78 X 10*3/uL (0.20-1.00); Monocytes % (A) 9.2 %; NRBC Per 100 WBC 0 X 10*3/uL (0.00-0.01); Neutrophils # (A) 4.65 X 10*3/uL (1.80-7.70); Neutrophils % (A) 54.9 %; Platelet Count 243 X 10*3/uL (140-440); WBC 8.48 X 10*3/uL (4.50-10.00)
[2023-08-14 10:09] LABS: Blood Urea Nitrogen 16.2 mg/dL (9.0-27.0); Calcium 9.4 mg/dL (8.7-10.3); Carbon Dioxide 26.1 mmol/L (21.6-31.8); Chloride 106 mmol/L (96-109); Glucose 77 mg/dL (70-110); Potassium 3.5 mmol/L (3.5-5.5); Sodium 145 mmol/L (135-145)
[2023-08-14 11:32] LABS: Glucose,Whole Blood 158 mg/dL (70-110)
[2023-08-14 16:56] LABS: Glucose,Whole Blood 281 mg/dL (70-110)
[2023-08-14] MEDS: THIAMINE 100 MG TAB PO SCH (17:15)
[2023-08-14 20:08] LABS: Glucose,Whole Blood 180 mg/dL (70-110)
[2023-08-14] MEDS: HEPARIN SODIUM,PORCINE 5,000 UNIT/ML 1 ML VIAL SQ SCH (21:00)
--- NOTE | 2023-08-14 22:22 | PN ---
PROGRESS NOTE DATE OF SERVICE: 08/14/2023 SUBJECTIVE: This 73-year-old gentleman who was admitted with fall and syncope, is confused today. No chest pain. No palpitations. No fever. The chest x-ray did not show any acute abnormality. EXAM: VITAL SIGNS: Pulse is 84, blood pressure 90/61, respirations 18. CHEST: Few scattered rhonchi. ABDOMEN: Soft. NERVOUS SYSTEM: Nonfocal. LABORATORY DATA: Reviewed. ASSESSMENT: 1. Fall and syncope, rule out orthostatic hypotension. 2. Facial laceration, left periorbital ecchymosis. 3. Parkinson's. 4. Diabetes mellitus, type 2. 5. Coronary artery disease. 6. Multiple medical issues. 7. No code. RECOMMENDATIONS: Recommend to continue current management, continue symptomatic treatment, otherwise PT/OT evaluation. Orthostatic vitals. Monitor blood sugars closely. I will reduce metoprolol 25 mg b.i.d. and continue to monitor. Further recommendations to follow. MMODL / IJN: [id number] /
[2023-08-14] MEDS: METOPROLOL SUCCINATE (ER) 25 MG TAB.ER.24H PO SCH (23:17)
[2023-08-14] MEDS: MIDODRINE 5 MG TAB PO SCH (23:29)
[2023-08-14] MEDS: SODIUM CHLORIDE 0.9% 500 ML 500 ML IV ONE (23:29)
[2023-08-15 06:06] LABS: Glucose,Whole Blood 68 mg/dL (70-110)
[2023-08-15 06:21] LABS: Glucose,Whole Blood 69 mg/dL (70-110)
[2023-08-15 06:36] LABS: Glucose,Whole Blood 89 mg/dL (70-110)
--- NOTE | 2023-08-15 09:03 | P.DS ---
Providers Date of admission: 08/11/23 14:52 Attending physician: Wilver Najera Primary care physician: Wilver Najera - Discharge Diagnosis(es) (1) Fall Current Visit: Yes Status: Acute (2) Facial laceration Current Visit: Yes Status: Acute (3) Parkinson disease Current Visit: Yes Status: Acute (4) Diabetes Current Visit: No Status: Acute Hospital Course: This is a 73-year-old male with a history of Parkinson's disease who originally presented to the emergency department after a fall. Patient had got up from his bed and had a syncopal episode and fell. He reportedly fell and hit his head on the hardwood floor. Patient lives with his . He was seen and evaluated by physical therapy who are recommending subacute rehab. Patient and have agreed to subacute rehab. Patient is seen this morning sitting up in bed, still very weak. He may be discharged to [facility] when bed is available. Patient seen and evaluated by nurse practitioner, physician in agreement with plan Patient Condition at Discharge: Stable Plan - Discharge Summary Discharge Rx Participant: Yes New Discharge Prescriptions: Continue DULoxetine HCL [Cymbalta] 60 mg PO DAILY Metoprolol Succinate [Toprol XL] 50 mg PO BID Atorvastatin [Lipitor] 80 mg PO HS #30 tab Clopidogrel Bisulfate [Plavix] 75 mg PO DAILY Aspirin 81 mg PO DAILY #30 chew Nitroglycerin Sl Tabs [Nitrostat] 0.4 mg SUBLINGUAL Q5M PRN #25 tab PRN Reason: Chest Pain Multivit-Min/Folic/Vit K/Lycop [Men's Multivitamin Tablet] 1 tab PO DAILY Memantine [Namenda] 10 mg PO BID Dulaglutide [Trulicity] 0.5 mg SQ TURNER Midodrine [ProAmatine] 5 mg PO DAILY Empagliflozin [Jardiance] 25 mg PO DAILY Donepezil HCl [Aricept] 10 mg PO BID Carbidopa-Levodopa ER 50-200Mg [Sinemet CR 50-200 mg] 1.5 tab PO BID metFORMIN HCL ER [Glucophage XR] 1,500 mg PO W/SUPPER Fludrocortisone Acetate 0.1 mg PO DAILY Changed Insulin Degludec [Tresiba Flextouch U-200 Pen] 50 units SQ HS #0 Discharge Medication List DULoxetine HCL [Cymbalta] 60 mg PO DAILY 09/22/15 [History] Metoprolol Succinate [Toprol XL] 50 mg PO BID 09/22/15 [History] Atorvastatin [Lipitor] 80 mg PO HS #30 tab 09/25/15 [Rx] Clopidogrel Bisulfate [Plavix] 75 mg PO DAILY 07/05/17 [History] Aspirin 81 mg PO DAILY #30 chew 07/07/17 [Rx] Nitroglycerin Sl Tabs [Nitrostat] 0.4 mg SUBLINGUAL Q5M PRN #25 tab 07/07/17 [Rx] Carbidopa-Levodopa ER 50-200Mg [Sinemet CR 50-200 mg] 1.5 tab PO BID 10/20/21 [History] Donepezil HCl [Aricept] 10 mg PO BID 10/20/21 [History] Dulaglutide [Trulicity] 0.5 mg SQ TURNER 10/20/21 [History] Empagliflozin [Jardiance] 25 mg PO DAILY 10/20/21 [History] Memantine [Namenda] 10 mg PO BID 10/20/21 [History] Multivit-Min/Folic/Vit K/Lycop [Men's Multivitamin Tablet] 1 tab PO DAILY 10/20/21 [History] metFORMIN HCL ER [Glucophage XR] 1,500 mg PO W/SUPPER 04/15/22 [History] Fludrocortisone Acetate 0.1 mg PO DAILY 08/10/23 [History] Midodrine [ProAmatine] 5 mg PO DAILY 08/10/23 [History] Insulin Degludec [Tresiba Flextouch U-200 Pen] 50 units SQ HS #0 08/15/23 [Rx] Follow up Appointment(s)/Referral(s): Wilver Najera MD [Primary Care Provider] - 1 Week Patient Instructions/Handouts: Head Injury (ED), Fall Prevention (ED) Activity/Diet/Wound Care/Special Instructions: Please follow-up with your primary care doctor for reevaluation. Return to the emergency department for any new or worsening symptoms, especially if you are not getting around safely at home Discharge Disposition: TRANSFER TO SNF/ECF
[2023-08-15 09:05] VITALS: BP 121/71; PULSE 76; RESP 19; TEMP 98.1
[2023-08-15] MEDS: FOLIC ACID 1 MG TAB PO SCH (11:21)
[2023-08-15 11:54] LABS: Glucose,Whole Blood 196 mg/dL (70-110)
[2023-08-15] MEDS ORDERED: INSULIN DETEMIR (LEVEMIR) 100 UNIT/ML SYR SQ SCH (21:00)
== END 2023-08-15 12:14 | DRG 57 ==
LOC: EC 08:45 → 6NMEDSUR 12:54 → 4SSUR 16:15 → OBSVTOIN 08-11 14:52
PROVIDERS: ADMIT Family Medicine; ATTEND Family Medicine
DX: G20.A1 Parkinson's disease without dyskinesia, without mention of fluctuations (principal); F02.80 Dementia in other diseases classified elsewhere, unspecified severity, without behavioral disturbance, psychotic disturbance, mood disturbance, and anxiety; S01.112A Laceration without foreign body of left eyelid and periocular area, initial encounter; I95.1 Orthostatic hypotension; M25.562 Pain in left knee; M25.561 Pain in right knee; W06.XXXA Fall from bed, initial encounter; E11.649 Type 2 diabetes mellitus with hypoglycemia without coma; I25.10 Atherosclerotic heart disease of native coronary artery without angina pectoris; Z66 Do not resuscitate; R53.81 Other malaise; D72.829 Elevated white blood cell count, unspecified; I10 Essential (primary) hypertension; E78.5 Hyperlipidemia, unspecified; S09.8XXA Other specified injuries of head, initial encounter; M19.90 Unspecified osteoarthritis, unspecified site; E11.42 Type 2 diabetes mellitus with diabetic polyneuropathy; E11.319 Type 2 diabetes mellitus with unspecified diabetic retinopathy without macular edema; Z95.5 Presence of coronary angioplasty implant and graft; Z91.85 Personal history of military service; Z79.899 Other long term (current) drug therapy; Z79.84 Long term (current) use of oral hypoglycemic drugs; Z79.82 Long term (current) use of aspirin; Z79.4 Long term (current) use of insulin; Z79.02 Long term (current) use of antithrombotics/antiplatelets; I25.2 Old myocardial infarction; Z87.891 Personal history of nicotine dependence
CPT/HCPCS: 36415; 70450; 71045; 72125; 80048; 80053; 81003; 83036; 83605; 83735; 84484; 85025; 93005; 99285

== ENCOUNTER 2024-02-03 22:52 | Emergency (ER) | payer MEDICARE, BC ==
[2024-02-03 23:12] VITALS: RESP 18; TEMP 99
--- NOTE | 2024-02-04 00:19 | CT ---
EXAM: CT Head Without Intravenous Contrast CLINICAL HISTORY: ITS.REASON CT Reason: head injury, fall TECHNIQUE: Axial computed tomography images of the head/brain without intravenous contrast. CTDI is 45.2 mGy and DLP is 1167 mGy-cm. This CT exam was performed using one or more of the following dose reduction techniques: automated exposure control, adjustment of the mA and/or kV according to patient size, and/or use of iterative reconstruction technique. COMPARISON: No relevant prior studies available. FINDINGS: Brain: Age-related cerebral volume loss. Periventricular and subcortical white matter hypoattenuation, consistent with chronic microangiopathy. No acute intracranial hemorrhage. No midline shift or mass effect. Ventricles: Unremarkable. No ventriculomegaly. Bones/joints: Unremarkable. No acute fracture. Soft tissues: Unremarkable. Sinuses: Unremarkable as visualized. No acute sinusitis. Mastoid air cells: Unremarkable as visualized. No mastoid effusion. IMPRESSION: No acute intracranial hemorrhage. No midline shift or mass effect. EXAM: CT Cervical Spine Without Intravenous Contrast CLINICAL HISTORY: ITS.REASON CT Reason: head injury, fall TECHNIQUE: Axial computed tomography images of the cervical spine without intravenous contrast. CTDI is 11.2 mGy and DLP is 353.3 mGy-cm. This CT exam was performed using one or more of the following dose reduction techniques: automated exposure control, adjustment of the mA and/or kV according to patient size, and/or use of iterative reconstruction technique. COMPARISON: No relevant prior studies available. FINDINGS: The vertebral body heights are maintained. The craniocervical junction is intact. The atlanto-dens interval is maintained. The dens is intact. There is no spondylolisthesis. Multilevel cervical spondylosis and degenerative disc disease. Straightening of the cervical lordosis. The unenhanced neck soft tissues are grossly unremarkable. The visualized lung apices are grossly clear. IMPRESSION: No acute fracture or subluxation of the cervical spine.
--- NOTE | 2024-02-04 00:53 | ED ---
Fall HPI - General Chief Complaint: Fall Stated Complaint: Fall Time Seen by Provider: 02/03/24 23:15 Source: EMS Mode of arrival: EMS - History of Present Illness Initial Comments: 73-year-old male with past medical history of dementia and Parkinson's who presents to the emergency department after he had a fall. witnessed the fall. He was standing, lost his balance and fell backwards hitting his head on the drywall. Patient did not lose consciousness. was having a difficult time getting the patient up and noticed that he had some blood coming from the back of his head. Because of this the patient was transported to the hospital by EMS. Patient denies any neck pain. Does admit to pain at the site of where he hit his head. No visual changes. No reported confusion from the patient's baseline. He denies any pain in his upper or lower extremities. states it is very common for the patient to fall due to his Parkinson's. No other allev iating, precipitating modifying factors - Related Data Home Medications Medication Instructions Recorded Confirmed DULoxetine HCL [Cymbalta] 60 mg PO DAILY 09/22/15 08/10/23 Metoprolol Succinate [Toprol XL] 50 mg PO BID 09/22/15 08/10/23 Clopidogrel Bisulfate [Plavix] 75 mg PO DAILY 07/05/17 08/10/23 Carbidopa-Levodopa ER 50-200Mg 1.5 tab PO BID 10/20/21 08/10/23 [Sinemet CR 50-200 mg] Donepezil HCl [Aricept] 10 mg PO BID 10/20/21 08/10/23 Dulaglutide [Trulicity] 0.5 mg SQ TURNER 10/20/21 08/10/23 Empagliflozin [Jardiance] 25 mg PO DAILY 10/20/21 08/10/23 Memantine [Namenda] 10 mg PO BID 10/20/21 08/10/23 Multivit-Min/Folic/Vit K/Lycop 1 tab PO DAILY 10/20/21 08/10/23 [Men's Multivitamin Tablet] metFORMIN HCL ER [Glucophage XR] 1,500 mg PO W/SUPPER 04/15/22 08/10/23 Fludrocortisone Acetate 0.1 mg PO DAILY 08/10/23 08/10/23 Midodrine [ProAmatine] 5 mg PO DAILY 08/10/23 08/10/23 Previous Rx's Medication Instructions Recorded Atorvastatin [Lipitor] 80 mg PO HS #30 tab 09/25/15 Aspirin 81 mg PO DAILY #30 chew 07/07/17 Nitroglycerin Sl Tabs [Nitrostat] 0.4 mg SUBLINGUAL Q5M PRN #25 tab 07/07/17 Insulin Degludec [Tresiba 50 units SQ HS #0 08/15/23 Flextouch U-200 Pen] Allergies Allergy/AdvReac Type Severity Reaction Status Date / Time No Known Allergies Allergy Verified 02/03/24 23:12 Review of Systems ROS Statement: Those systems with pertinent positive or pertinent negative responses have been documented in the HPI. ROS Other: All systems not noted in ROS Statement are negative. 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 09/24/15 PCI with stent. Other surgical hx: 2001 cardiac cath, R shoulder surgery, umbilical hernia repair, surgery for sleep apnea & cataract R eye. COLONOSCOPY, Past Anesthesia/Blood Transfusion Reactions: Postoperative Nausea & Vomiting (PONV) Date of Last Stent Placement:: 2019 Past Psychological History: No Psychological Hx Reported Smoking Status: Former smoker Past Alcohol Use History: None Reported Past Drug Use History: None Reported - Past Family History Father Family Medical History: Cancer Additional Family Medical History / Comment(s): Prostate cancer. Father of heart problems at the age of 83 yrs. Mother Additional Family Medical History / Comment(s): Mother was a nurse and contracted hepatitis C from a needle stick. She of liver problems at age 78 yrs.. General Exam General appearance: alert, in no apparent distress Head exam: Present: normocephalic, other (Abrasion to the occiput. No active bleeding) Eye exam: Present: normal appearance, PERRL, EOMI. Absent: scleral icterus, conjunctival injection, periorbital swelling ENT exam: Present: normal exam, mucous membranes moist Neck exam: Present: normal inspection, other (C-collar in place). Absent: tenderness, meningismus, lymphadenopathy Respiratory exam: Present: normal lung sounds bilaterally. Absent: respiratory distress, wheezes, rales, rhonchi, stridor Cardiovascular Exam: Present: regular rate, normal rhythm, normal heart sounds. Absent: systolic murmur, diastolic murmur, rubs, gallop, clicks GI/Abdominal exam: Present: soft, normal bowel sounds. Absent: distended, tenderness, guarding, rebound, rigid Extremities exam: Present: normal inspection, full ROM, normal capillary refill. Absent: tenderness, pedal edema, joint swelling, calf tenderness Neurological exam: Present: alert, CN II-XII intact Psychiatric exam: Present: flat affect Course Vital Signs 02/03/24 02/04/24 23:06 01:22 Temperature 99 F Pulse Rate 83 82 Respiratory 18 18 Rate Blood Pressure 168/94 171/90 O2 Sat by Pulse 96 98 Oximetry Medical Decision Making - Medical Decision Making Was pt. sent in by a medical professional or institution (AYESHA Stern, BOARD DESIGN ENGINEER, urgent care, hospital, or fdc...) When possible be specific @ -No Did you speak to anyone other than the patient for history (EMS, parent, family, police, friend...)? What history was obtained from this source @ -Spoke with EMS and the for history Did you review nursing and triage notes (agree or disagree)? Why? @ -I reviewed and agree with nursing and triage notes Were old charts reviewed (outside hosp., previous admission, EMS record, old EKG, old radiological studies, urgent care reports/EKG's, fdc records)? Report findings @ -No old charts were reviewed Differential Diagnosis (chest pain, altered mental status, abdominal pain women, abdominal pain men, vaginal bleeding, weakness, fever, dyspnea, syncope, headache, dizziness, GI bleed, back pain, seizure, CVA, palpatations, mental health, musculoskeletal)? @ -Subarachnoid, subdural, cervical fracture EKG interpreted by me (3pts min.). @ -Not done X-rays interpreted by me (1pt min.). @ -None done CT interpreted by me (1pt min.). @ -Yes and demonstrates no acute intracranial process. No neck fractures U/S interpreted by me (1pt. min.). @ -None done What testing was considered but not performed or refused? (CT, X-rays, U/S, labs)? Why? @ -None What meds were considered but not given or refused? Why? @ -None Did you discuss the management of the patient with other professionals (professionals i.e. DrSuzanne, PA, BOARD DESIGN ENGINEER, lab, RT, psych nurse, social and political studies professor, tire and lube technician, teacher, geological technical officer, sample case porter)? Give summary @ -No Was smoking cessation discussed for >3mins.? @ -No Was critical care preformed (if so, how long)? @ -No Were there social determinants of health that impacted care today? How? (Homelessness, low income, unemployed, alcoholism, drug addiction, transportation, low edu. Level, literacy, decrease access to med. care, prison, rehab)? @ -No Was there de-escalation of care discussed even if they declined (Discuss DNR or withdrawal of care, Hospice)? DNR status @ -No What co-morbidities impacted this encounter? (DM, HTN, Smoking, COPD, CAD, Cance r, CVA, ARF, Chemo, Hep., AIDS, mental health diagnosis, sleep apnea, morbid obesity)? @ -Parkinson's, dementia Was patient admitted / discharged? Hospital course, mention meds given and route, prescriptions, significant lab abnormalities, going to OR and other pertinent info. @ -Upon arrival patient seen and evaluated in room 2. Thorough history and physical exam was performed. Patient sent for CT of the brain and cervical spine. Imaging is negative for acute process. Discussed the results with the . Patient be discharged back to his home at this time. Instructed follow- up with his primary care doctor in 2 to 4 days and return for any new or worsening symptoms Undiagnosed new problem with uncertain prognosis? @ -No Drug Therapy requiring intensive monitoring for toxicity (Heparin, Nitro, Insulin, Cardizem)? @ -No Were any procedures done? @ -No Diagnosis/symptom? @ -Acute fall, acute blunt head injury, scalp abrasion Acute, or Chronic, or Acute on Chronic? @ -Acute Uncomplicated (without systemic symptoms) or Complicated (systemic symptoms)? @ -Complicated Side effects of treatment? @ -No Exacerbation, Progression, or Severe Exacerbation? @ -No Poses a threat to life or bodily function? How? (Chest pain, USA, PA, pneumonia, PE, COPD, DKA, ARF, appy, cholecystitis, CVA, Diverticulitis, Homicidal, Suicidal, threat to staff... and all critical care pts) @ -No Disposition Clinical Impression: Fall, Abrasion of head, Blunt head trauma Disposition: HOME SELF-CARE Condition: Stable Instructions (If sedation given, give patient instructions): Fall Prevention for Older Adults (ED) Additional Instructions: Please follow up with your doctor and return for any new or worsening symptoms Is patient prescribed a controlled substance at d/c from ED?: No Referrals: Wilver Najera MD [Primary Care Provider] - 1-2 days Time of Disposition: 00:52
[2024-02-04 01:27] VITALS: BP 171/90; PULSE 82
== END 2024-02-04 01:26 | disposition home or self-care (01) ==
LOC: EC 22:52
DX: W19.XXXA Unspecified fall, initial encounter
CPT/HCPCS: 70450; 72125; 99283

== ENCOUNTER 2024-05-30 08:10 | Inpatient (IN) | payer BC, MEDICARE ==
--- NOTE | 2024-05-30 08:56 | ED ---
Altered Mental Status HPI - General Chief Complaint: Altered Mental Status Stated Complaint: AMS Time Seen by Provider: 05/30/24 08:14 Source: family, EMS, RN notes reviewed Mode of arrival: EMS Limitations: altered mental status - History of Present Illness Initial Comments: This is a 73-year-old male who presents to the emergency department for altered mental status. Patient has a history of dementia but is usually A&O x 2-3 at baseline. Over the last 24 hours he has been very lethargic and sleeping for most of the day. He is not responding to many questions and is also unable to ambulate on his own. He is usually ambulatory with a walker. His has been sick with a cough and is unsure if he may have caught it. He has otherwise not seemed ill. When asked where he is, he believes he is in [place]. He is otherwise not answering any questions asked of him. MD Complaint: altered mental status - Related Data Home Medications Medication Instructions Recorded Confirmed DULoxetine HCL [Cymbalta] 60 mg PO DAILY 09/22/15 05/30/24 Metoprolol Succinate [Toprol XL] 50 mg PO BID 09/22/15 05/30/24 Clopidogrel Bisulfate [Plavix] 75 mg PO DAILY 07/05/17 05/30/24 Carbidopa-Levodopa ER 50-200Mg 2 tab PO BID 10/20/21 05/30/24 [Sinemet CR 50-200 mg] Donepezil HCl [Aricept] 10 mg PO BID 10/20/21 05/30/24 Dulaglutide [Trulicity] 0.75 mg SQ TURNER 10/20/21 05/30/24 Empagliflozin [Jardiance] 25 mg PO DAILY 10/20/21 05/30/24 Memantine [Namenda] 10 mg PO BID 10/20/21 05/30/24 Multivit-Min/Folic/Vit K/Lycop 1 tab PO DAILY 10/20/21 05/30/24 [Men's Multivitamin Tablet] metFORMIN HCL ER [Glucophage XR] 1,500 mg PO W/SUPPER 04/15/22 05/30/24 Fludrocortisone Acetate 0.1 mg PO DAILY 08/10/23 05/30/24 Midodrine [ProAmatine] 5 mg PO DAILY 08/10/23 05/30/24 Carbidopa-Levodopa 25-100 mg 1 tab PO BID 05/30/24 05/30/24 [Sinemet 25-100] Cyanocobalamin [Vitamin B-12] 500 mcg PO DAILY 05/30/24 05/30/24 Nystatin 100,000 Unit/gm Powd 1 applic TOPICAL BID 05/30/24 05/30/24 [Mycostatin Powder] Tamsulosin HCl [Flomax] 0.4 mg PO DAILY 05/30/24 05/30/24 modafiniL [Provigil] 100 mg PO DAILY 05/30/24 05/30/24 Previous Rx's Medication Instructions Recorded Atorvastatin [Lipitor] 80 mg PO HS #30 tab 09/25/15 Aspirin 81 mg PO DAILY #30 chew 07/07/17 Nitroglycerin Sl Tabs [Nitrostat] 0.4 mg SUBLINGUAL Q5M PRN #25 tab 07/07/17 Insulin Degludec [Tresiba 50 units SQ HS #0 08/15/23 Flextouch U-200 Pen] Allergies Allergy/AdvReac Type Severity Reaction Status Date / Time No Known Allergies Allergy Verified 05/30/24 12:11 Review of Systems ROS Statement: Those systems with pertinent positive or pertinent negative responses have been documented in the HPI. ROS Other: All systems not noted in ROS Statement are negative. 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 09/24/15 PCI with stent. Other surgical hx: 2001 cardiac cath, R shoulder surgery, umbilical hernia repair, surgery for sleep apnea & cataract R eye. COLONOSCOPY, Past Anesthesia/Blood Transfusion Reactions: Postoperative Nausea & Vomiting (PONV) Date of Last Stent Placement:: 2019 Past Psychological History: No Psychological Hx Reported Smoking Status: Former smoker Past Alcohol Use History: None Reported Past Drug Use History: None Reported - Past Family History Father Family Medical History: Cancer Additional Family Medical History / Comment(s): Prostate cancer. Father of heart problems at the age of 83 yrs. Mother Additional Family Medical History / Comment(s): Mother was a nurse and contracted hepatitis C from a needle stick. She of liver problems at age 78 yrs.. General Exam Limitations: altered mental status General appearance: alert, in no apparent distress Head exam: Present: atraumatic, normocephalic, normal inspection Eye exam: Present: normal appearance, PERRL, EOMI. Absent: scleral icterus, conjunctival injection, periorbital swelling Respiratory exam: Present: normal lung sounds bilaterally. Absent: respiratory distress, wheezes, rales, rhonchi, stridor Cardiovascular Exam: Present: regular rate, normal rhythm GI/Abdominal exam: Present: soft. Absent: distended Neurological exam: Present: alert Skin exam: Present: warm, dry, intact, normal color. Absent: rash Course Vital Signs 05/30/24 05/30/24 05/30/24 08:29 13:23 18:21 Temperature 98.8 F 98.7 F Pulse Rate 96 105 H 93 Respiratory 18 18 18 Rate Blood Pressure 167/91 166/94 125/79 O2 Sat by Pulse 96 97 98 Oximetry Medical Decision Making - Medical Decision Making This is a 73-year-old male who presents to the emergency department for altered mental status. Was pt. sent in by a medical professional or institution? @ -No Did you speak to anyone other than the patient for history? @ -EMS and family provided all of the history. Did you review nursing and triage notes? @ -Yes, and I agree, it is accurate with regards to the patient's symptoms. Were old charts reviewed? @ -No Differential Diagnosis? @ -Differential Altered Mental Status: Hypoglycemia, DKA, hypercapnia, ETOH, overdose, CO poisoning, trauma, myxedema coma, HTN encephalopathy, infection, encephalitis, psychosis, intercranial hemorrhage, hepatic encephalopathy, meningitis, CVA, this is not meant to be an all-inclusive list EKG interpreted by me (3pts min.)? @ -EKG interpreted by me demonstrating the following: Sinus rhythm. Ventricular rate 97 bpm, LA interval 144 ms, QRS duration 110 ms, QTc 430 ms. X-rays interpreted by me (1pt min.)? @ -Chest x-ray obtained. My interpretation identifies small bilateral pleural effusions. CT interpreted by me (1pt min.)? @ -CT scan of the brain obtained. My interpretation identifies no evidence of an acute intracranial hemorrhage. U/S interpreted by me (1pt. min.)? @ -Not obtained What testing was considered but not performed? (CT, X-rays, U/S, labs)? Why? @ -None What meds were considered but not given? Why? @ -None Did you discuss the management of the patient with other professionals? @ -Yes, Dr. Najera, who accepts the patient for admission and requests a pulmonology consult for COVID. Did you reconcile home meds? @ -Yes Was smoking cessation discussed for >3mins.? @ -No Was critical care preformed (if so, how long)? @ -No Were there social determinants of health that impacted care today? How? (Homelessness, low income, unemployed, alcoholism, drug addiction, transportation, low edu. Level, literacy, decrease access to med. care, [facility], rehab)? @ -No Was there de-escalation of care discussed even if they declined? (Discuss DNR or withdrawal of care, Hospice)? @ -No What co-morbidities impacted this encounter? (DM, HTN, Smoking, COPD, CAD, Cancer, CVA, Hep., AIDS, mental health diagnosis, sleep apnea, morbid obesity)? @ -CAD, DM, HLD, HTN Was patient admitted / discharged? @ -Admitted. Lab work demonstrates an elevated lactic acid of 5.3. CRP mildly elevated at 3.3. Patient positive for COVID-19. Urinalysis negative for signs of infection. Chest x-ray reveals tiny bilateral pleural effusions with patchy left basilar acute infiltrate and/or atelectasis. BNP only 387. CT scan of the brain reveals no acute process. Patient did start to become tachycardic and met SIRS criteria based on that with the lactic acid. He was treated with IV fluids and blood cultures were obtained as well. Given the possibility for acute infiltrate, he was also started on the pneumonia protocol with ceftriaxone and azithromycin. Procalcitonin level ordered and pending at the time of admission. Patient admitted to medicine for COVID-pneumonia and altered mental status. Consult placed for pulmonology per patient's PCP request. Case discussed with ED attending Dr. Springer. Undiagnosed new problem with uncertain prognosis? @ -None Drug Therapy requiring intensive monitoring for toxicity (Heparin, Nitro, Insulin, Cardizem)? @ -None Were any procedures done? @ -None Diagnosis/symptom? @ -COVID-pneumonia, weakness, altered mental status Acute, or Chronic, or Acute on Chronic? @ -Acute Uncomplicated (without systemic symptoms) or Complicated (systemic symptoms)? @ -Complicated Side effects of treatment? @ -None Exacerbation, Progression, or Severe Exacerbation] @ -Not applicable Poses a threat to life or bodily function? @ -Yes, patient is unable to function as a result of the weakness. - Lab Data Result diagrams: 05/30/24 08:53 05/30/24 10:15 Lab Results 05/30/24 05/30/24 05/30/24 Range/Units 08:53 08:53 08:53 WBC 8.9 (3.8-10.6) k/uL RBC 5.11 (4.30-5.90) m/uL Hgb 15.2 (13.0-17.5) gm/dL Hct 44.0 (39.0-53.0) % MCV 86.0 (80.0-100.0) fL MCH 29.8 (25.0-35.0) pg MCHC 34.6 (31.0-37.0) g/dL RDW 14.2 (11.5-15.5) % Plt Count 138 L (150-450) k/uL MPV 8.6 Neutrophils % 85 % Lymphocytes % 6 % Monocytes % 7 % Eosinophils % 1 % Basophils % 1 % Neutrophils # 7.5 (1.3-7.7) k/uL Lymphocytes # 0.6 L (1.0-4.8) k/uL Monocytes # 0.7 (0-1.0) k/uL Eosinophils # 0.1 (0-0.7) k/uL Basophils # 0.1 (0-0.2) k/uL PT (10.0-12.5) sec INR (<1.2) APTT (22.0-30.0) sec Sodium (137-145) mmol/L Potassium (3.5-5.1) mmol/L Chloride (98-107) mmol/L Carbon Dioxide (22-30) mmol/L Anion Gap mmol/L BUN (9-20) mg/dL Creatinine (0.66-1.25) mg/dL Est GFR (CKD-EPI)AfAm (>60 ml/min/1.73 sqM) Est GFR (CKD-EPI)NonAf (>60 ml/min/1.73 sqM) Glucose (74-99) mg/dL Lactic Ac Sepsis Rflx Plasma Lactic Acid Josh (0.7-2.0) mmol/L Calcium (8.4-10.2) mg/dL Magnesium (1.6-2.3) mg/dL Total Bilirubin (0.2-1.3) mg/dL AST (17-59) U/L ALT (4-49) U/L Alkaline Phosphatase (38-126) U/L Troponin I (0.000-0.034) ng/mL C-Reactive Protein (<1.0) mg/dL NT-Pro-B Natriuret Pep pg/mL Total Protein (6.3-8.2) g/dL Albumin (3.5-5.0) g/dL Procalcitonin (0.02-0.50) ng/mL Urine Color Light Yellow Urine Appearance Clear (Clear) Urine pH 5.5 (5.0-8.0) Ur Specific [place] 1.036 H (1.001-1.035) Urine Protein Trace H (Negative) Urine Glucose (UA) 4+ H (Negative) Urine Ketones 2+ H (Negative) Urine Blood Negative (Negative) Urine Nitrite Negative (Negative) Urine Bilirubin Negative (Negative) Urine Urobilinogen <2.0 (<2.0) mg/dL Ur Leukocyte Esterase Negative (Negative) Urine Opiates Screen Not Detected (NotDetected) Ur Oxycodone Screen Not Detected (NotDetected) Urine Methadone Screen Not Detected (NotDetected) Ur Barbiturates Screen Not Detected (NotDetected) U Tricyclic Antidepress Not Detected (NotDetected) Ur Phencyclidine Scrn Not Detected (NotDetected) Ur Amphetamines Screen Not Detected (NotDetected) U Methamphetamines Scrn Not Detected (NotDetected) U Benzodiazepines Scrn Not Detected (NotDetected) Urine Cocaine Screen Not Detected (NotDetected) U Marijuana (THC) Screen Detected H (NotDetected) Influenza Type A (PCR) Not Detected (Not Detectd) Influenza Type B (PCR) Not Detected (Not Detectd) RSV (PCR) Not Detected (Not Detectd) SARS-CoV-2 (PCR) Detected A (Not Detectd) 05/30/24 05/30/24 05/30/24 Range/Units 10:15 10:15 10:15 WBC (3.8-10.6) k/uL RBC (4.30-5.90) m/uL Hgb (13.0-17.5) gm/dL Hct (39.0-53.0) % MCV (80.0-100.0) fL MCH (25.0-35.0) pg MCHC (31.0-37.0) g/dL RDW (11.5-15.5) % Plt Count (150-450) k/uL MPV Neutrophils % % Lymphocytes % % Monocytes % % Eosinophils % % Basophils % % Neutrophils # (1.3-7.7) k/uL Lymphocytes # (1.0-4.8) k/uL Monocytes # (0-1.0) k/uL Eosinophils # (0-0.7) k/uL Basophils # (0-0.2) k/uL PT (10.0-12.5) sec INR (<1.2) APTT (22.0-30.0) sec Sodium 142 (137-145) mmol/L Potassium 3.9 (3.5-5.1) mmol/L Chloride 101 (98-107) mmol/L Carbon Dioxide 26 (22-30) mmol/L Anion Gap 15 mmol/L BUN 14 (9-20) mg/dL Creatinine 0.58 L (0.66-1.25) mg/dL Est GFR (CKD-EPI)AfAm >90 (>60 ml/min/1.73 sqM) Est GFR (CKD-EPI)NonAf >90 (>60 ml/min/1.73 sqM) Glucose 118 H (74-99) mg/dL Lactic Ac Sepsis Rflx Plasma Lactic Acid Josh 5.3 H* (0.7-2.0) mmol/L Calcium 9.2 (8.4-10.2) mg/dL Magnesium 2.1 (1.6-2.3) mg/dL Total Bilirubin 0.9 (0.2-1.3) mg/dL AST 22 (17-59) U/L ALT 45 (4-49) U/L Alkaline Phosphatase 88 (38-126) U/L Troponin I <0.012 (0.000-0.034) ng/mL C-Reactive Protein 3.3 H (<1.0) mg/dL NT-Pro-B Natriuret Pep 387 pg/mL Total Protein 6.8 (6.3-8.2) g/dL Albumin 4.5 (3.5-5.0) g/dL Procalcitonin (0.02-0.50) ng/mL Urine Color Urine Appearance (Clear) Urine pH (5.0-8.0) Ur Specific [place] (1.001-1.035) Urine Protein (Negative) Urine Glucose (UA) (Negative) Urine Ketones (Negative) Urine Blood (Negative) Urine Nitrite (Negative) Urine Bilirubin (Negative) Urine Urobilinogen (<2.0) mg/dL Ur Leukocyte Esterase (Negative) Urine Opiates Screen (NotDetected) Ur Oxycodone Screen (NotDetected) Urine Methadone Screen (NotDetected) Ur Barbiturates Screen (NotDetected) U Tricyclic Antidepress (NotDetected) Ur Phencyclidine Scrn (NotDetected) Ur Amphetamines Screen (NotDetected) U Methamphetamines Scrn (NotDetected) U Benzodiazepines Scrn (NotDetected) Urine Cocaine Screen (NotDetected) U Marijuana (THC) Screen (NotDetected) Influenza Type A (PCR) (Not Detectd) Influenza Type B (PCR) (Not Detectd) RSV (PCR) (Not Detectd) SARS-CoV-2 (PCR) (Not Detectd) 05/30/24 05/30/24 05/30/24 Range/Units 10:15 10:15 10:38 WBC (3.8-10.6) k/uL RBC (4.30-5.90) m/uL Hgb (13.0-17.5) gm/dL Hct (39.0-53.0) % MCV (80.0-100.0) fL MCH (25.0-35.0) pg MCHC (31.0-37.0) g/dL RDW (11.5-15.5) % Plt Count (150-450) k/uL MPV Neutrophils % % Lymphocytes % % Monocytes % % Eosinophils % % Basophils % % Neutrophils # (1.3-7.7) k/uL Lymphocytes # (1.0-4.8) k/uL Monocytes # (0-1.0) k/uL Eosinophils # (0-0.7) k/uL Basophils # (0-0.2) k/uL PT 11.7 (10.0-12.5) sec INR 1.1 (<1.2) APTT 23.0 (22.0-30.0) sec Sodium (137-145) mmol/L Potassium (3.5-5.1) mmol/L Chloride (98-107) mmol/L Carbon Dioxide (22-30) mmol/L Anion Gap mmol/L BUN (9-20) mg/dL Creatinine (0.66-1.25) mg/dL Est GFR (CKD-EPI)AfAm (>60 ml/min/1.73 sqM) Est GFR (CKD-EPI)NonAf (>60 ml/min/1.73 sqM) Glucose (74-99) mg/dL Lactic Ac Sepsis Rflx Y Plasma Lactic Acid Josh (0.7-2.0) mmol/L Calcium (8.4-10.2) mg/dL Magnesium (1.6-2.3) mg/dL Total Bilirubin (0.2-1.3) mg/dL AST (17-59) U/L ALT (4-49) U/L Alkaline Phosphatase (38-126) U/L Troponin I (0.000-0.034) ng/mL C-Reactive Protein (<1.0) mg/dL NT-Pro-B Natriuret Pep pg/mL Total Protein (6.3-8.2) g/dL Albumin (3.5-5.0) g/dL Procalcitonin 0.08 (0.02-0.50) ng/mL Urine Color Urine Appearance (Clear) Urine pH (5.0-8.0) Ur Specific [place] (1.001-1.035) Urine Protein (Negative) Urine Glucose (UA) (Negative) Urine Ketones (Negative) Urine Blood (Negative) Urine Nitrite (Negative) Urine Bilirubin (Negative) Urine Urobilinogen (<2.0) mg/dL Ur Leukocyte Esterase (Negative) Urine Opiates Screen (NotDetected) Ur Oxycodone Screen (NotDetected) Urine Methadone Screen (NotDetected) Ur Barbiturates Screen (NotDetected) U Tricyclic Antidepress (NotDetected) Ur Phencyclidine Scrn (NotDetected) Ur Amphetamines Screen (NotDetected) U Methamphetamines Scrn (NotDetected) U Benzodiazepines Scrn (NotDetected) Urine Cocaine Screen (NotDetected) U Marijuana (THC) Screen (NotDetected) Influenza Type A (PCR) (Not Detectd) Influenza Type B (PCR) (Not Detectd) RSV (PCR) (Not Detectd) SARS-CoV-2 (PCR) (Not Detectd) - Radiology Data Radiology results: report reviewed, image reviewed Disposition Clinical Impression: Pneumonia due to COVID-19 virus, Altered mental status, Weakness Disposition: ADMITTED IP TO THIS HOSP
--- NOTE | 2024-05-30 09:19 | CT ---
EXAMINATION TYPE: CT brain wo con DATE OF EXAM: 05/30/2024 9:10 AM COMPARISON: None. CLINICAL INDICATION: Male, 73 years old with history of confusion, Altered mental status, , TECHNIQUE: Examination was done in axial plane without intravenous contrast. Coronal and sagittal r econstructions performed. CT DLP: 1186.4k mGycm, Automated exposure control for dose reduction was used. FINDINGS: There is no evidence of acute intracranial hemorrhage, acute ischemic changes, mass, mass-effect, or extra-axial fluid collection. There is no effacement of cerebral sulci or basal subarachnoid cister ns. There is no hydrocephalus. There is no midline shift. Yousif-white matter distinction is preserv ed. Mild generalized supratentorial volume loss. The larger left lateral ventricle likely anatomic variat ion. Mild to moderate patchy periventricular white matter hypodensities. As described calcifications carotid siphons as well as the proximal V4 segment left vertebral artery. Trace mucosal thickening ethmoid air cells. Mastoid air cells well pneumatized. Orbits and globes are intact. Slight rightward nasal septal deviation. IMPRESSION: Mild generalized atrophy and mild to moderate burden of chronic small vessel ischemic disease. No acu te intracranial abnormality seen. Trace chronic ethmoid sinus disease. [facility], , 05/30/2024 9:17 AM
[2024-05-30 09:27] LABS: Basophils # (A) 0.1 k/uL (0-0.2); Basophils % (A) 1 %; Eosinophils # (A) 0.1 k/uL (0-0.7); Eosinophils % (A) 1 %; HGB 15.2 gm/dL (13.0-17.5); Lymphocytes # (A) 0.6 k/uL (1.0-4.8); Lymphocytes % (A) 6 %; MCH 29.8 pg (25.0-35.0); MCHC 34.6 g/dL (31.0-37.0); Mean Platelet Volume 8.6; Monocytes # (A) 0.7 k/uL (0-1.0); Monocytes % (A) 7 %; Neutrophils # (A) 7.5 k/uL (1.3-7.7); Neutrophils % (A) 85 %; Platelet Count 138 k/uL (150-450); RBC 5.11 m/uL (4.30-5.90); RDW 14.2 % (11.5-15.5); WBC 8.9 k/uL (3.8-10.6)
--- NOTE | 2024-05-30 09:30 | XR ---
EXAMINATION TYPE: XR chest 2V DATE OF EXAM: 05/30/2024 9:23 AM COMPARISON: Chest x-ray August 13, 2023 CLINICAL INDICATION: Male, 73 years old with history of altered mental status, TECHNIQUE: Frontal and lateral views of the chest are obtained. FINDINGS: There are tiny bilateral pleural effusions and patchy left basilar opacity. The cardiac s ilhouette size is stable and upper limits of normal. The osseous structures are intact. IMPRESSION: Tiny bilateral pleural effusions with patchy left basilar acute infiltrate and/or atelect asis. [facility], , 05/30/2024 9:28 AM
[2024-05-30 09:50] LABS: Influenza A Not Detected (Not Detectd); Influenza B Not Detected (Not Detectd); RSV Not Detected (Not Detectd)
[2024-05-30 10:29] LABS: INR 1.1 (<1.2); Prothrombin Time 11.7 sec (10.0-12.5)
[2024-05-30 10:34] LABS: ALT 45 U/L (4-49); AST 22 U/L (17-59); African American GFR (CKD) >90 (>60 ml/min/1.73 sqM); Albumin 4.5 g/dL (3.5-5.0); Alkaline Phosphatase 88 U/L (38-126); Anion Gap 15 mmol/L; Blood Urea Nitrogen 14 mg/dL (9-20); C Reactive Protein 3.3 mg/dL (<1.0); Calcium 9.2 mg/dL (8.4-10.2); Carbon Dioxide 26 mmol/L (22-30); Chloride 101 mmol/L (98-107); Glucose 118 mg/dL (74-99); Magnesium 2.1 mg/dL (1.6-2.3); Non-African American GFR(CKD) >90 (>60 ml/min/1.73 sqM); Potassium 3.9 mmol/L (3.5-5.1); Sodium 142 mmol/L (137-145); Total Bilirubin 0.9 mg/dL (0.2-1.3); Total Protein 6.8 g/dL (6.3-8.2)
[2024-05-30 10:40] LABS: NT-Pro-B-Type Natriuretic Pept 387 pg/mL
[2024-05-30] MEDS: SODIUM CHLORIDE 0.9% 1,000 ML IV STA ×2 (11:01→16:07)
[2024-05-30] MEDS: SODIUM CHLORIDE 0.9% 500 ML 500 ML IV STA (11:02)
[2024-05-30 13:14] LABS: Appearance,Urine Clear (Clear); Bilirubin,Urine Negative (Negative); Blood,Urine Negative (Negative); Color,Urine Light Yellow; Glucose,Urine (UA) 4+ (Negative); Leukocyte Esterase,Urine Negative (Negative); Nitrite,Urine Negative (Negative); PH, Urine 5.5 (5.0-8.0); Protein,Urine Trace (Negative); Specific Gravity,Urine 1.036 (1.001-1.035); Urobilinogen,Urine <2.0 mg/dL (<2.0)
[2024-05-30 13:18] LABS: Ketones,Urine 2+ (Negative)
[2024-05-30 13:27] LABS: Amphetamine Screen,Urine Not Detected (NotDetected); Barbiturate Screen,Urine Not Detected (NotDetected); Benzodiazepines Screen,Urine Not Detected (NotDetected); Cocaine Screen,Urine Not Detected (NotDetected); Methadone Screen, Urine Not Detected (NotDetected); Opiate Screen,Urine Not Detected (NotDetected); Oxycodone Screen, Urine Not Detected (NotDetected); Phencyclidine Screen,Urine Not Detected (NotDetected); Tricyclic Antidepressant,Urine Not Detected (NotDetected); Urn Cannabinoid Scrn Detected (NotDetected)
[2024-05-30] MEDS ORDERED: PNEUMONIA PROTOCOL UTILIZED 1 EACH MISC PO PRN (13:33)
[2024-05-30] MEDS ORDERED: NITROGLYCERIN SL TABS 0.4 MG TAB SUBLINGUAL PRN (13:35)
[2024-05-30] MEDS: AZITHROMYCIN 500 MG in SODIUM CHLORIDE 0.9% 250 ML IVPB STA (16:07)
--- NOTE | 2024-05-30 16:44 | P.CNPUL ---
History of Present Illness Consult date: 05/30/24 Chief complaint: Altered mental status, COVID-19 History of present illness: This is a 73-year-old male patient presented to the emergency department because of altered mentation. The patient is known to have dementia and the patient is oriented x 2-3 at baseline. Over the past 24 to 48 hours, the patient became progressively more lethargic and sleepy and weak and he was unable to ambulate on his own. He usually ambulates with the help of a walker. Noted his also has been sick and she had a respiratory illness. The patient accordingly was brought into the emergency department and tested positive for COVID-19. Urine drug screen was also positive for marijuana. The white cell count was at 8.9 with a hemoglobin 15.2 with a platelet count of 138. Normal coagulation profile. Normal electrolytes. BUN was 14 with a creatinine of 0.5. Initial lactic acid level was at 5.3. Normal LFTs. Troponins were negative. CRP level was at 3.3. proBNP level was 387. Chest x-ray done in the emergency department showed blunting of the left costophrenic angle could be related to a small left- sided pleural effusion/infiltrate. CAT scan of the brain was also done in the emergency department that showed mild generalized atrophy with mild to moderate burden of chronic small vessel ischemic disease without any acute abnormalities. The patient is hemodynamically stable. Currently afebrile. Slightly tachycardic. Is on room air oxygen with a pulse ox of 97%. Comorbidities include dementia, Parkinson's disease, diabetes mellitus maintained on Levemir insulin 50 units daily and Trulicity. Patient also has BPH. Hyperlipidemia. Macular degeneration and diabetic peripheral neuropathy and retinopathy. Uses marijuana on a daily basis. 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 Also known to have coronary artery disease and he has undergone previous stenting of the circumflex back in 2016. Previous echocardiogram from 2018 showed a preserved LV function without any significant valvular abnormalities and the patient has a concentric LVH. Review of Systems ROS unobtainable: due to mental status Constitutional: Reports fatigue, Reports lethargy, Reports weakness Eyes: bilateral decreased vision Ears, nose, mouth and throat: Reports as per HPI Breasts: absent: as per HPI, gynecomastia Cardiovascular: Reports decreased exercise tolerance Respiratory: Reports as per HPI Gastrointestinal: Reports as per HPI Genitourinary: Reports as per HPI (Will see if current respiratory illness disease today was) Musculoskeletal: Reports as per HPI Musculoskeletal: absent: ankle pain, ankle stiffness, ankle swelling, as per HPI, elbow pain, elbow stiffness, elbow swelling, foot pain, foot stiffness, foot swelling, hand pain, hand stiffness, hand swelling, hip pain, hip stiffness, hip swelling, knee pain, knee stiffness, knee swelling, shoulder pain, shoulder stiffness, shoulder swelling, wrist pain, wrist stiffness, wrist swelling Integumentary: Reports as per HPI Neurological: Reports change in mentation, Reports confusion, Reports gait dysfunction, Reports lack of coordination, Reports weakness, Reports visual changes Psychiatric: Reports as per HPI, Reports confusion Endocrine: Reports fatigue Hematologic/Lymphatic: Reports as per HPI Past Medical History Past Medical History: Coronary Artery Disease (CAD), Chest Pain / Angina, Diabetes Mellitus, Hyperlipidemia, Hypertension, Myocardial Infarction ([place]), Neurologic Disorder, Osteoarthritis (OA) Additional Past Medical History / Comment(s): bilateral neuropathy in feet, bilateral diabetic retinopathy, bilateral macular degeneration, bilateral eye cataract, sleep apnea but had surgery to correct, , PARKINSON'S, STARTING OF DEMENTIA Last Myocardial Infarction Date:: 06/28/2019 History of Any Multi-Drug Resistant Organisms: None Reported Past Surgical History: Adenoidectomy, Appendectomy, Ear Surgery, Heart Catheterization, Heart Catheterization With Stent, Hernia Repair, Orthopedic Surgery, Tonsillectomy Additional Past Surgical History / Comment(s): 10-16-15 heart cath w/2 stents to lad. 09/24/15 PCI with stent. Other surgical hx: 2001 cardiac cath, R shoulder surgery, umbilical hernia repair, surgery for sleep apnea & cataract R eye. COLONOSCOPY, Past Anesthesia/Blood Transfusion Reactions: Postoperative Nausea & Vomiting (PONV) Date of Last Stent Placement:: 2019 Past Psychological History: No Psychological Hx Reported Smoking Status: Former smoker Past Alcohol Use History: None Reported Past Drug Use History: None Reported - Past Family History Father Family Medical History: Cancer Additional Family Medical History / Comment(s): Prostate cancer. Father of heart problems at the age of 83 yrs. Mother Additional Family Medical History / Comment(s): Mother was a nurse and contracted hepatitis C from a needle stick. She of liver problems at age 78 yrs.. Medications and Allergies Home Medications Medication Instructions Recorded Confirmed Type DULoxetine HCL [Cymbalta] 60 mg PO DAILY 09/22/15 05/30/24 History Metoprolol Succinate [Toprol XL] 50 mg PO BID 09/22/15 05/30/24 History Atorvastatin [Lipitor] 80 mg PO HS #30 tab 09/25/15 05/30/24 Rx Clopidogrel Bisulfate [Plavix] 75 mg PO DAILY 07/05/17 05/30/24 History Aspirin 81 mg PO DAILY #30 chew 07/07/17 05/30/24 Rx Nitroglycerin Sl Tabs [Nitrostat] 0.4 mg SUBLINGUAL Q5M PRN #25 tab 07/07/17 05/30/24 Rx Carbidopa-Levodopa ER 50-200Mg 2 tab PO BID 10/20/21 05/30/24 History [Sinemet CR 50-200 mg] Donepezil HCl [Aricept] 10 mg PO BID 10/20/21 05/30/24 History Dulaglutide [Trulicity] 0.75 mg SQ TURNER 10/20/21 05/30/24 History Empagliflozin [Jardiance] 25 mg PO DAILY 10/20/21 05/30/24 History Memantine [Namenda] 10 mg PO BID 10/20/21 05/30/24 History Multivit-Min/Folic/Vit K/Lycop 1 tab PO DAILY 10/20/21 05/30/24 History [Men's Multivitamin Tablet] metFORMIN HCL ER [Glucophage XR] 1,500 mg PO W/SUPPER 04/15/22 05/30/24 History Fludrocortisone Acetate 0.1 mg PO DAILY 08/10/23 05/30/24 History Midodrine [ProAmatine] 5 mg PO DAILY 08/10/23 05/30/24 History Insulin Degludec [Tresiba 50 units SQ HS #0 08/15/23 05/30/24 Rx Flextouch U-200 Pen] Carbidopa-Levodopa 25-100 mg 1 tab PO BID 05/30/24 05/30/24 History [Sinemet 25-100] Cyanocobalamin [Vitamin B-12] 500 mcg PO DAILY 05/30/24 05/30/24 History Nystatin 100,000 Unit/gm Powd 1 applic TOPICAL BID 05/30/24 05/30/24 History [Mycostatin Powder] Tamsulosin HCl [Flomax] 0.4 mg PO DAILY 05/30/24 05/30/24 History modafiniL [Provigil] 100 mg PO DAILY 05/30/24 05/30/24 History Allergies Allergy/AdvReac Type Severity Reaction Status Date / Time No Known Allergies Allergy Verified 05/30/24 12:11 Physical Exam Vitals: Vital Signs Temp Pulse Resp BP Pulse Ox 05/30/24 13:23 98.7 F 105 H 18 166/94 97 05/30/24 08:29 98.8 F 96 18 167/91 96 Intake and Output 05/30/24 05/30/24 05/30/24 06:59 14:59 22:59 Output Total 200 Balance -200 Output: Urine 200 Straight 200 Other: Weight 79.379 kg The patient very lethargic, not communicating at this point in time. Lying comfortably in bed. No signs of any respiratory distress and the patient is currently on room air oxygen. Mucous membranes are extremely dry. Head exam is unremarkable. No scleral icterus or corneal arcus noted. Neck is without jugular venous distension, thyromegaly, or carotid bruits. Carotid upstrokes are brisk bilaterally. Lungs are clear to auscultation and percussion. Cardiac exam reveals the PMI to be normally sized and situated. Rhythm is regular. First and second heart sounds normal. No murmurs, rubs or gallops. Abdominal exam reveals normal bowel sounds, no masses, no organomegaly and no aortic enlargement. Extremities are nonedematous and both femoral and pedal pulses are normal. Examination of the skin revealed no evidence of significant rashes, suspicious appearing nevi or other concerning lesions. Neurologically, the patient lethargic, nonverbal, diffuse motor weakness in all 4 extremities. No focal neurological deficits. Pupils are equal reactive to light. No facial asymmetry. Noted the patient was able to follow simple commands and his neurologic exam is nonfocal. Lower back Results - Laboratory Findings CBC and BMP: 05/30/24 08:53 05/30/24 10:15 PT/INR, D-dimer PT 11.7 sec (10.0-12.5) 05/30/24 10:15 INR 1.1 (<1.2) 05/30/24 10:15 Abnormal lab findings: Abnormal Labs 05/30/24 05/30/24 05/30/24 08:53 08:53 08:53 Plt Count 138 L Lymphocytes # 0.6 L Creatinine Glucose Plasma Lactic Acid Josh C-Reactive Protein Ur Specific [place] 1.036 H Urine Protein Trace H Urine Glucose (UA) 4+ H Urine Ketones 2+ H U Marijuana (THC) Screen Detected H SARS-CoV-2 (PCR) Detected A 05/30/24 05/30/24 10:15 10:15 Plt Count Lymphocytes # Creatinine 0.58 L Glucose 118 H Plasma Lactic Acid Josh 5.3 H* C-Reactive Protein 3.3 H Ur Specific [place] Urine Protein Urine Glucose (UA) Urine Ketones U Marijuana (THC) Screen SARS-CoV-2 (PCR) - Diagnostic Findings Chest x-ray: image reviewed Assessment and Plan Plan: acute COVID-19 infection, the exact timing of the infection is not known, likely acute. Previous vaccination and infection status is not known. Acute change in mental status on top of chronic dementia. CAT scan of the brain shows no acute abnormalities and consistent with chronic findings. Rule out viral induced encephalopathy. 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 Dementia Parkinson's disease Hypertension Hyperlipidemia Chronic debility secondary to Parkinson's/dementia with difficulties in mobility and previous history of falls Macular degeneration Chronic marijuana use Plan IV fluids normal saline at rate of 75 cc an hour Supportive care regarding COVID-19 no indication for systemic steroids and the patient is not having any respirat ory distress or hypoxemia Chest x-ray was reviewed, no significant abnormalities hemoglobin, no sign ificant abnormalities check D-dimers Check LDH Check procalcitonin level Resume home medications Monitor mental status Lovenox 40 mg subcu for DVT prophylaxis We will continue to follow
[2024-05-30] MEDS: ENOXAPARIN 40 MG/0.4 ML SYRINGE SQ SCH (17:27)
[2024-05-30] MEDS: metFORMIN 500 MG TAB PO SCH (17:30)
[2024-05-30] MEDS: SODIUM CHLORIDE 0.9% 500 ML 500 ML IV ONE ×2 (19:19→21:49)
[2024-05-30] MEDS ORDERED: ACETAMINOPHEN TAB 325 MG TAB PO PRN (20:31)
[2024-05-30 20:48] LABS: Glucose,Whole Blood 102 mg/dL (70-110)
[2024-05-30] MEDS: NYSTATIN 100,000 UNIT/GM POWD 15 GM TOPICAL SCH (21:50)
[2024-05-30] MEDS: CARBIDOPA-LEVODOPA ER 50-200MG 1 EACH TABLET.ER PO SCH (21:58)
[2024-05-30] MEDS: DONEPEZIL 10 MG TAB PO SCH (21:59)
[2024-05-30] MEDS: METOPROLOL SUCCINATE (ER) 50 MG TAB.ER.24H PO SCH (21:59)
[2024-05-30] MEDS: MEMANTINE 10 MG TAB PO SCH (21:59)
[2024-05-30] MEDS: ATORVASTATIN 80 MG TAB PO SCH (21:59)
[2024-05-30] MEDS: CARBIDOPA-LEVODOPA 25-100 MG 1 EACH TAB PO SCH (21:59)
[2024-05-30] MEDS: INSULIN DETEMIR (LEVEMIR) 100 UNIT/ML SYR SQ SCH (21:59)
[2024-05-31 06:13] LABS: Glucose,Whole Blood 72 mg/dL (70-110)
[2024-05-31] MEDS ORDERED: DEXTROSE 50% SYRINGE 50 ML IVP PRN ×2 (08:30)
--- NOTE | 2024-05-31 08:56 | P.HPIM ---
History of Present Illness H&P Date: 05/31/24 This is a 73-year-old male who presented to the emergency department with complaints of altered mentation. Patient is known to have dementia and is normally oriented x 2-3 at baseline. Patient's reports patient has been more lethargic and weak at home. Patient postive for covid on admission. Chest XR shows possible small left-sided pleural effusion/infiltrate. Pulmonary has been consulted. Patient seen this morning sleeping comfortably in bed. He gives one word answers then falls back asleep. Further medical history as noted below. Review of Systems Constitutional: Reports fatigue, Reports lethargy, Denies chills, Denies fever Cardiovascular: Denies chest pain, Denies dyspnea on exertion Respiratory: Denies cough, Denies dyspnea Gastrointestinal: Denies nausea, Denies vomiting Musculoskeletal: Denies arm numbness/tingling, Denies leg numbness/tingling Neurological: Reports weakness, Denies headaches Past Medical History Past Medical History: Coronary Artery Disease (CAD), Chest Pain / Angina, Diabetes Mellitus, Hyperlipidemia, Hypertension, Myocardial Infarction ([place]), N eurologic Disorder, Osteoarthritis (OA) Additional Past Medical History / Comment(s): bilateral neuropathy in feet, bilateral diabetic retinopathy, bilateral macular degeneration, bilateral eye cataract, sleep apnea but had surgery to correct, , PARKINSON'S, STARTING OF DEMENTIA Last Myocardial Infarction Date:: 06/28/2019 History of Any Multi-Drug Resistant Organisms: None Reported Past Surgical History: Adenoidectomy, Appendectomy, Ear Surgery, Heart Catheterization, Heart Catheterization With Stent, Hernia Repair, Orthopedic Surgery, Tonsillectomy Additional Past Surgical History / Comment(s): 10-16-15 heart cath w/2 stents to lad. 09/24/15 PCI with stent. Other surgical hx: 2001 cardiac cath, R shoulder surgery, umbilical hernia repair, surgery for sleep apnea & cataract R eye. COLONOSCOPY, Past Anesthesia/Blood Transfusion Reactions: Postoperative Nausea & Vomiting (PONV) Date of Last Stent Placement:: 2019 Past Psychological History: No Psychological Hx Reported Smoking Status: Former smoker Past Alcohol Use History: None Reported Past Drug Use History: None Reported - Past Family History Father Family Medical History: Cancer Additional Family Medical History / Comment(s): Prostate cancer. Father of heart problems at the age of 83 yrs. Mother Additional Family Medical History / Comment(s): Mother was a nurse and contracted hepatitis C from a needle stick. She of liver problems at age 78 yrs.. Medications and Allergies Home Medications Medication Instructions Recorded Confirmed Type DULoxetine HCL [Cymbalta] 60 mg PO DAILY 09/22/15 05/30/24 History Metoprolol Succinate [Toprol XL] 50 mg PO BID 09/22/15 05/30/24 History Atorvastatin [Lipitor] 80 mg PO HS #30 tab 09/25/15 05/30/24 Rx Clopidogrel Bisulfate [Plavix] 75 mg PO DAILY 07/05/17 05/30/24 History Aspirin 81 mg PO DAILY #30 chew 07/07/17 05/30/24 Rx Nitroglycerin Sl Tabs [Nitrostat] 0.4 mg SUBLINGUAL Q5M PRN #25 tab 07/07/17 05/30/24 Rx Carbidopa-Levodopa ER 50-200Mg 2 tab PO BID 10/20/21 05/30/24 History [Sinemet CR 50-200 mg] Donepezil HCl [Aricept] 10 mg PO BID 10/20/21 05/30/24 History Dulaglutide [Trulicity] 0.75 mg SQ TURNER 10/20/21 05/30/24 History Empagliflozin [Jardiance] 25 mg PO DAILY 10/20/21 05/30/24 History Memantine [Namenda] 10 mg PO BID 10/20/21 05/30/24 History Multivit-Min/Folic/Vit K/Lycop 1 tab PO DAILY 10/20/21 05/30/24 History [Men's Multivitamin Tablet] metFORMIN HCL ER [Glucophage XR] 1,500 mg PO W/SUPPER 04/15/22 05/30/24 History Fludrocortisone Acetate 0.1 mg PO DAILY 08/10/23 05/30/24 History Midodrine [ProAmatine] 5 mg PO DAILY 08/10/23 05/30/24 History Insulin Degludec [Tresiba 50 units SQ HS #0 08/15/23 05/30/24 Rx Flextouch U-200 Pen] Carbidopa-Levodopa 25-100 mg 1 tab PO BID 05/30/24 05/30/24 History [Sinemet 25-100] Cyanocobalamin [Vitamin B-12] 500 mcg PO DAILY 05/30/24 05/30/24 History Nystatin 100,000 Unit/gm Powd 1 applic TOPICAL BID 05/30/24 05/30/24 History [Mycostatin Powder] Tamsulosin HCl [Flomax] 0.4 mg PO DAILY 05/30/24 05/30/24 History modafiniL [Provigil] 100 mg PO DAILY 05/30/24 05/30/24 History Allergies Allergy/AdvReac Type Severity Reaction Status Date / Time No Known Allergies Allergy Verified 05/30/24 12:11 Physical Exam Vitals: Vital Signs Temp Pulse Pulse Resp BP BP Pulse Ox 05/31/24 01:33 100.1 F H 80 18 103/62 93 L 05/30/24 19:30 98.2 F 104 H 19 162/78 97 05/30/24 18:21 93 18 125/79 98 05/30/24 13:23 98.7 F 105 H 18 166/94 97 Intake and Output 05/30/24 05/31/24 05/31/24 22:59 06:59 14:59 Output Total 1450 Balance -1450 Output: Urine 1450 Other: Voiding Method External Catheter Weight 79.379 kg - Constitutional General appearance: no acute distress - EENT Eyes: PERRLA - Neck Neck: no lymphadenopathy, normal ROM, no rigidity - Respiratory Respiratory: bilateral: CTA - Cardiovascular Rhythm: regular Heart sounds: normal: S1, S2 - Gastrointestinal General gastrointestinal: soft, no tenderness - Integumentary Integumentary: normal, normal turgor - Musculoskeletal Musculoskeletal: generalized weakness - Psychiatric alert to person, very drowsy Results CBC & Chem 7: 05/30/24 08:53 05/30/24 10:15 Labs: Abnormal Lab Results - Last 24 Hours (Table) 05/30/24 05/30/24 05/30/24 Range/Units 08:53 08:53 08:53 Plt Count 138 L (150-450) k/uL Lymphocytes # 0.6 L (1.0-4.8) k/uL D-Dimer (<0.60) mg/L FEU Creatinine (0.66-1.25) mg/dL Glucose (74-99) mg/dL Plasma Lactic Acid Josh (0.7-2.0) mmol/L C-Reactive Protein (<1.0) mg/dL Ur Specific [place] 1.036 H (1.001-1.035) Urine Protein Trace H (Negative) Urine Glucose (UA) 4+ H (Negative) Urine Ketones 2+ H (Negative) U Marijuana (THC) Screen Detected H (NotDetected) SARS-CoV-2 (PCR) Detected A (Not Detectd) 05/30/24 05/30/24 05/30/24 Range/Units 10:15 10:15 14:25 Plt Count (150-450) k/uL Lymphocytes # (1.0-4.8) k/uL D-Dimer (<0.60) mg/L FEU Creatinine 0.58 L (0.66-1.25) mg/dL Glucose 118 H (74-99) mg/dL Plasma Lactic Acid Josh 5.3 H* 2.2 H* (0.7-2.0) mmol/L C-Reactive Protein 3.3 H (<1.0) mg/dL Ur Specific [place] (1.001-1.035) Urine Protein (Negative) Urine Glucose (UA) (Negative) Urine Ketones (Negative) U Marijuana (THC) Screen (NotDetected) SARS-CoV-2 (PCR) (Not Detectd) 05/30/24 05/30/24 05/30/24 Range/Units 17:20 17:20 20:38 Plt Count (150-450) k/uL Lymphocytes # (1.0-4.8) k/uL D-Dimer 0.86 H (<0.60) mg/L FEU Creatinine (0.66-1.25) mg/dL Glucose (74-99) mg/dL Plasma Lactic Acid Josh 2.4 H* 2.3 H* (0.7-2.0) mmol/L C-Reactive Protein (<1.0) mg/dL Ur Specific [place] (1.001-1.035) Urine Protein (Negative) Urine Glucose (UA) (Negative) Urine Ketones (Negative) U Marijuana (THC) Screen (NotDetected) SARS-CoV-2 (PCR) (Not Detectd) Thrombosis Risk Factor Assmnt - Choose All That Apply Any of the Below Risk Factors Present?: Yes Each Factor Represents 1 point: Medical pt on bed rest, Obesity (BMI >25) Other Risk Factors: Yes Each Risk Factor Represents 2 Points: Age 61-74 years Other congenital or acquired thrombophilia - If yes, enter type in comment: No Thrombosis Risk Factor Assessment Total Risk Factor Score: 4 Thrombosis Risk Factor Assessment Level: Moderate Risk Assessment and Plan (1) COVID Current Visit: Yes Status: Acute Code(s): U07.1 - COVID-19 SNOMED Code(s): 028420285 (2) Hypertension Current Visit: Yes Status: Acute Code(s): I10 - ESSENTIAL (PRIMARY) HYPERTENSION SNOMED Code(s): 52477457 (3) Altered mental status Current Visit: Yes Status: Acute Code(s): R41.82 - ALTERED MENTAL STATUS, UNSPECIFIED SNOMED Code(s): 646472873 (4) Weakness Current Visit: Yes Status: Acute Code(s): R53.1 - WEAKNESS SNOMED Code(s): 97108642 (5) Diabetes Current Visit: No Status: Acute Code(s): E11.9 - TYPE 2 DIABETES MELLITUS WITHOUT COMPLICATIONS SNOMED Code(s): 81337683 Plan: Continue supportive care. Appreciate pulmonary consult. Patient seen and evaluated by nurse practitioner, physician in agreement with plan.
[2024-05-31] MEDS: MULTIVITAMINS, THERA 1 EACH TAB PO SCH (09:34)
[2024-05-31] MEDS: modafiniL 100 MG TAB PO SCH (09:34)
[2024-05-31] MEDS: MIDODRINE 5 MG TAB PO SCH (09:34)
[2024-05-31] MEDS: TAMSULOSIN 0.4 MG CAP.ER.24H PO SCH (09:34)
[2024-05-31] MEDS: ASPIRIN 81 MG PO SCH (09:34)
[2024-05-31] MEDS: DAPAGLIFLOZIN PROPANEDIOL 10 MG TABLET PO SCH (09:35)
[2024-05-31] MEDS: DULoxetine HCL 60 MG CAPSULE.DR PO SCH (09:35)
[2024-05-31] MEDS: CYANOCOBALAMIN 500 MCG TAB PO SCH (09:35)
[2024-05-31] MEDS: CLOPIDOGREL 75 MG TAB PO SCH (09:35)
[2024-05-31] MEDS: AZITHROMYCIN 500 MG TAB PO SCH (10:28)
[2024-05-31] MEDS: FLUDROCORTISONE 0.1 MG TAB PO SCH (10:28)
[2024-05-31 11:31] LABS: Glucose,Whole Blood 66 mg/dL (70-110)
[2024-05-31 11:54] LABS: Glucose,Whole Blood 67 mg/dL (70-110)
[2024-05-31 12:34] LABS: Glucose,Whole Blood 110 mg/dL (70-110)
[2024-05-31 16:51] LABS: Glucose,Whole Blood 154 mg/dL (70-110)
--- NOTE | 2024-05-31 17:40 | P.PN ---
Subjective Progress Note Date: 05/31/24 This is a 73-year-old male patient presented to the emergency department because of altered mentation. The patient is known to have dementia and the patient is oriented x 2-3 at baseline. Over the past 24 to 48 hours, the patient became progressively more lethargic and sleepy and weak and he was unable to ambulate on his own. He usually ambulates with the help of a walker. Noted his also has been sick and she had a respiratory illness. The patient accordingly was brought into the emergency department and tested positive for COVID-19. Urine drug screen was also positive for marijuana. The white cell count was at 8.9 with a hemoglobin 15.2 with a platelet count of 138. Normal coagulation profile. Normal electrolytes. BUN was 14 with a creatinine of 0.5. Initial lactic acid level was at 5.3. Normal LFTs. Troponins were negative. CRP level was at 3.3. proBNP level was 387. Chest x-ray done in the emergency department showed blunting of the left costophrenic angle could be related to a small left- sided pleural effusion/infiltrate. CAT scan of the brain was also done in the emergency department that showed mild generalized atrophy with mild to moderate burden of chronic small vessel ischemic disease without any acute abnormalities. The patient is hemodynamically stable. Currently afebrile. Slightly tachycardic. Is on room air oxygen with a pulse ox of 97%. Comorbidities include dementia, Parkinson's disease, diabetes mellitus maintain ed on Levemir insulin 50 units daily and Trulicity. Patient also has BPH. Hyperlipidemia. Macular degeneration and diabetic peripheral neuropathy and retinopathy. Uses marijuana on a daily basis. 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 Also known to have coronary artery disease and he has undergone previous stenting of the circumflex back in 2016. Previous echocardiogram from 2018 showed a preserved LV function without any significant valvular abnormalities and the patient has a concentric LVH. On 05/31/2024, patient is being seen for a follow-up. Overall condition remains essentially unchanged. The patient has advanced dementia and normally is oriented x 2-3. He is very much lethargic and weak and is working with physical therapy. He has tested positive for COVID-19. Nevertheless, there is no eviden ce of any pneumonia. Oxygenation remained stable and the patient's pulse ox is 94% room air oxygen. He was given empiric antibiotic coverage with Zithromax. Rest of the home medications were resumed. He is also on Lovenox 40 mg subcu for DVT prophylaxis. In terms of his labs, his procalcitonin level was at 0.07, nonelevated. His proBNP level was 387. Troponins were negative. LDH was 222. Lactic acid level is dropped down to 1.0. Legionella urine antigen is negative. The rest of the viral screen was also negative. Objective - Vital Signs Vital signs: Vital Signs Temp 97 F L 05/31/24 07:29 Pulse 109 H 05/31/24 07:29 Resp 16 05/31/24 07:29 BP 138/83 05/31/24 07:29 Pulse Ox 95 05/31/24 07:29 FiO2 Intake & Output 05/30/24 05/31/24 05/31/24 18:59 06:59 18:59 Output Total 200 1450 Balance -200 -1450 Weight 79.379 kg 79.379 kg Output: Urine 200 1450 Straight 200 Other: Voiding Method External Catheter - Exam The patient very lethargic, not communicating at this point in time. Lying comfortably in bed. No signs of any respiratory distress and the patient is currently on room air oxygen. Mucous membranes are extremely dry. Head exam is unremarkable. No scleral icterus or corneal arcus noted. Neck is without jugular venous distension, thyromegaly, or carotid bruits. Carotid upstrokes are brisk bilaterally. Lungs are clear to auscultation and percussion. Cardiac exam reveals the PMI to be normally sized and situated. Rhythm is regular. First and second heart sounds normal. No murmurs, rubs or gallops. Abdominal exam reveals normal bowel sounds, no masses, no organomegaly and no aortic enlargement. Extremities are nonedematous and both femoral and pedal pulses are normal. Examination of the skin revealed no evidence of significant rashes, suspicious appearing nevi or other concerning lesions. Neurologically, the patient lethargic, nonverbal, diffuse motor weakness in all 4 extremities. No focal neurological deficits. Pupils are equal reactive to light. No facial asymmetry. Noted the patient was able to follow simple commands and his neurologic exam is nonfocal. Lower back - Labs CBC & Chem 7: 05/30/24 08:53 05/30/24 10:15 Labs: Abnormal Lab Results - Last 24 Hours (Table) 05/30/24 05/30/24 05/30/24 Range/Units 08:53 14:25 17:20 D-Dimer 0.86 H (<0.60) mg/L FEU Plasma Lactic Acid Josh 2.2 H* (0.7-2.0) mmol/L Ur Specific [place] 1.036 H (1.001-1.035) Urine Protein Trace H (Negative) Urine Glucose (UA) 4+ H (Negative) Urine Ketones 2+ H (Negative) U Marijuana (THC) Screen Detected H (NotDetected) 05/30/24 05/30/24 Range/Units 17:20 20:38 D-Dimer (<0.60) mg/L FEU Plasma Lactic Acid Josh 2.4 H* 2.3 H* (0.7-2.0) mmol/L Ur Specific [place] (1.001-1.035) Urine Protein (Negative) Urine Glucose (UA) (Negative) Urine Ketones (Negative) U Marijuana (THC) Screen (NotDetected) Assessment and Plan Plan: acute COVID-19 infection, the exact timing of the infection is not known, likely acute. Previous vaccination and infection status is not known. Acute change in mental status on top of chronic dementia. CAT scan of the brain shows no acute abnormalities and consistent with chronic findings. Rule out viral induced encephalopathy. 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 Dementia Parkinson's disease Hypertension Hyperlipidemia Chronic debility secondary to Parkinson's/dementia with difficulties in mobility and previous history of falls Macular degeneration Chronic marijuana use Plan Continue supportive care Monitor mental status IV fluids normal saline at rate of 75 cc an hour Supportive care regarding COVID-19 no indication for systemic steroids and the patient is not having any respiratory distress or hypoxemia, the patient remains on room air oxygen Chest x-ray was reviewed, no significant abnormalities hemoglobin, no significant abnormalities check D-dimers nonelevated at 0.8 Check LDH, nonelevated Check procalcitonin level not elevated Resume home medications Monitor mental status Lovenox 40 mg subcu for DVT prophylaxis We will continue to follow
[2024-05-31 20:39] LABS: Glucose,Whole Blood 118 mg/dL (70-110)
[2024-06-01 06:21] LABS: Glucose,Whole Blood 55 mg/dL (70-110)
[2024-06-01 06:45] LABS: Glucose,Whole Blood 71 mg/dL (70-110)
--- NOTE | 2024-06-01 08:35 | P.PN ---
Subjective Progress Note Date: 06/01/24 Principal diagnosis: The patient is a 73-year-old white male with known history of diabetic retinopathy and renal disease who came in with COVID-pneumonia. Element of sepsis with elevated lactic acid. The patient is now more alert after having significant hydration. Appreciate pulmonology input. Frequently weak. But however the patient does not complain of any voiding difficulties Objective - Vital Signs Vital signs: Vital Signs Temp 97.7 F 06/01/24 07:11 Pulse 87 06/01/24 07:11 Resp 18 06/01/24 07:11 BP 138/74 06/01/24 07:11 Pulse Ox 92 L 06/01/24 07:55 FiO2 Intake & Output 05/31/24 06/01/24 06/01/24 18:59 06:59 18:59 Intake Total 480 Output Total 750 850 Balance -750 -370 Intake: Oral 480 Output: Urine 750 850 Other: Voiding Method External Catheter External Catheter - Constitutional General appearance: Present: cooperative - EENT Eyes: Absent: abnormal pupil - Neck Neck: Absent: lymphadenopathy - Respiratory Respiratory: bilateral: diminished - Cardiovascular Rhythm: regular Heart sounds: normal: S1, S2 Abnormal Heart Sounds: Absent: S3 Gallop - Gastrointestinal General gastrointestinal: Present: soft. Absent: tenderness - Psychiatric Psychiatric: Present: appropriate affect - Labs CBC & Chem 7: 05/30/24 08:53 05/30/24 10:15 Labs: Abnormal Lab Results - Last 24 Hours (Table) 05/31/24 05/31/24 05/31/24 Range/Units 11:29 11:52 16:49 POC Glucose (mg/dL) 66 L 67 L 154 H (70-110) mg/dL 05/31/24 06/01/24 Range/Units 20:39 06:17 POC Glucose (mg/dL) 118 H 55 L (70-110) mg/dL Microbiology - Last 24 Hours (Table) 05/30/24 15:04 Blood Culture - Preliminary Blood Assessment and Plan (1) Hypertension Current Visit: Yes Status: Acute Code(s): I10 - ESSENTIAL (PRIMARY) HYPERTENSION SNOMED Code(s): 58977426 (2) Pneumonia due to COVID-19 virus Current Visit: Yes Status: Acute Code(s): U07.1 - COVID-19; J12.82 - PNEUMONIA DUE TO CORONAVIRUS DISEASE 2019 SNOMED Code(s): 350336054843750049 (3) Weakness Current Visit: Yes Status: Acute Code(s): R53.1 - WEAKNESS SNOMED Code(s): 90544797 (4) Diabetes Current Visit: No Status: Acute Code(s): E11.9 - TYPE 2 DIABETES MELLITUS WITHOUT COMPLICATIONS SNOMED Code(s): 27005913 (5) Parkinson disease Current Visit: No Status: Acute Code(s): G20.A1 - PARKINSON'S DIS W/O DYSKINESIA, W/O MENTION OF FLUCTUATIONS SNOMED Code(s): 01752298 Plan: Continue supportive care. The plan is to transfer the patient to rehabilitation. Check CBC and CMP in a.m. Appreciate pulmonology input. Time with Patient: Greater than 30
[2024-06-01 08:56] LABS: HCT 37.5 % (39.6-50.0); HGB 12.3 g/dL (13.0-17.0); MCH 28.9 pg (27.0-32.0); MCHC 32.8 g/dL (32.0-37.0); Mean Platelet Volume 10.1 FL (9.5-12.2); NRBC Per 100 WBC 0 X 10*3/uL (0.00-0.01); Platelet Count 159 X 10*3/uL (140-440); RBC 4.26 X 10*6/uL (4.40-5.60); RDW 14.1 % (11.5-14.5); WBC 7.46 X 10*3/uL (4.50-10.00)
[2024-06-01 09:03] LABS: BUN/Creat Ratio 23.67 Ratio (12.00-20.00); Blood Urea Nitrogen 14.2 mg/dL (9.0-27.0); Carbon Dioxide 27.8 mmol/L (21.6-31.8); Chloride 104 mmol/L (96-109); Glucose 48 mg/dL (70-110); Potassium 3.4 mmol/L (3.5-5.5); Sodium 142 mmol/L (135-145)
[2024-06-01 09:04] LABS: ALT 14 U/L (10-49); AST 21 U/L (14-35); Albumin 3.6 g/dL (3.8-4.9); Albumin/Globulin Ratio 1.71 Ratio (1.60-3.17); Alkaline Phosphatase 71 U/L (41-126); Calcium 8.6 mg/dL (8.7-10.3); Globulin 2.1 g/dL (1.6-3.3); Total Bilirubin 0.5 mg/dL (0.3-1.2); Total Protein 5.7 g/dL (6.2-8.2)
[2024-06-01 11:38] LABS: Glucose,Whole Blood 174 mg/dL (70-110)
--- NOTE | 2024-06-01 16:06 | P.PN ---
Subjective Progress Note Date: 06/01/24 This is a 73-year-old male patient presented to the emergency department because of altered mentation. The patient is known to have dementia and the patient is oriented x 2-3 at baseline. Over the past 24 to 48 hours, the patient became progressively more lethargic and sleepy and weak and he was unable to ambulate on his own. He usually ambulates with the help of a walker. Noted his also has been sick and she had a respiratory illness. The patient accordingly was brought into the emergency department and tested positive for COVID-19. Urine drug screen was also positive for marijuana. The white cell count was at 8.9 with a hemoglobin 15.2 with a platelet count of 138. Normal coagulation profile. Normal electrolytes. BUN was 14 with a creatinine of 0.5. Initial lactic acid level was at 5.3. Normal LFTs. Troponins were negative. CRP level was at 3.3. proBNP level was 387. Chest x-ray done in the emergency department showed blunting of the left costophrenic angle could be related to a small left- sided pleural effusion/infiltrate. CAT scan of the brain was also done in the emergency department that showed mild generalized atrophy with mild to moderate burden of chronic small vessel ischemic disease without any acute abnormalities. The patient is hemodynamically stable. Currently afebrile. Slightly tachycardic. Is on room air oxygen with a pulse ox of 97%. Comorbidities include dementia, Parkinson's disease, diabetes mellitus maintain ed on Levemir insulin 50 units daily and Trulicity. Patient also has BPH. Hyperlipidemia. Macular degeneration and diabetic peripheral neuropathy and retinopathy. Uses marijuana on a daily basis. 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 Also known to have coronary artery disease and he has undergone previous stenting of the circumflex back in 2016. Previous echocardiogram from 2018 showed a preserved LV function without any significant valvular abnormalities and the patient has a concentric LVH. On 05/31/2024, patient is being seen for a follow-up. Overall condition remains essentially unchanged. The patient has advanced dementia and normally is oriented x 2-3. He is very much lethargic and weak and is working with physical therapy. He has tested positive for COVID-19. Nevertheless, there is no eviden ce of any pneumonia. Oxygenation remained stable and the patient's pulse ox is 94% room air oxygen. He was given empiric antibiotic coverage with Zithromax. Rest of the home medications were resumed. He is also on Lovenox 40 mg subcu for DVT prophylaxis. In terms of his labs, his procalcitonin level was at 0.07, nonelevated. His proBNP level was 387. Troponins were negative. LDH was 222. Lactic acid level is dropped down to 1.0. Legionella urine antigen is negative. The rest of the viral screen was also negative. On 06/01/2024, patient is being seen for a follow-up. This patient is 73 with COVID-19 infection and the patient has been has dementia and he had a component of worsening level of consciousness at the time of admission. Currently stable. Continues to have generalized weakness and ongoing constitutional symptoms. Nevertheless, despite all this, oxygenation remained stable and the patient's pulse ox 96% on room air oxygen. Treatment is essentially supportive at this point in time. The patient remains on his home medications. Hemodynamically stable. No new complaints. Labs from today show a WBC count of 7.4 with a heme of 12.3 and a platelet count of 159. Sodium levels at 142, potassium level is at 3.4, BUN is 14 with a creatinine of 0.6. LFTs are normal. Albumin is at 3.6. UA was showing ketones at time of admission. No signs of any infection. Blood culture has been negative. Objective - Vital Signs Vital signs: Vital Signs Temp 97.7 F 06/01/24 07:11 Pulse 87 06/01/24 07:11 Resp 18 06/01/24 07:11 BP 138/74 06/01/24 07:11 Pulse Ox 92 L 06/01/24 07:55 FiO2 Intake & Output 05/31/24 06/01/24 06/01/24 18:59 06:59 18:59 Intake Total 480 Output Total 750 850 Balance -750 -370 Intake: Oral 480 Output: Urine 750 850 Other: Voiding Method External Catheter External Catheter External Catheter - Exam The patient very lethargic, not communicating at this point in time. Lying comfortably in bed. No signs of any respiratory distress and the patient is currently on room air oxygen. Mucous membranes are extremely dry. Head exam is unremarkable. No scleral icterus or corneal arcus noted. Neck is without jugular venous distension, thyromegaly, or carotid bruits. Carotid upstrokes are brisk bilaterally. Lungs are clear to auscultation and percussion. Cardiac exam reveals the PMI to be normally sized and situated. Rhythm is regular. First and second heart sounds normal. No murmurs, rubs or gallops. Abdominal exam reveals normal bowel sounds, no masses, no organomegaly and no aortic enlargement. Extremities are nonedematous and both femoral and pedal pulses are normal. Examination of the skin revealed no evidence of significant rashes, suspicious appearing nevi or other concerning lesions. Neurologically, the patient lethargic, nonverbal, diffuse motor weakness in all 4 extremities. No focal neurological deficits. Pupils are equal reactive to light. No facial asymmetry. Noted the patient was able to follow simple commands and his neurologic exam is nonfocal. Lower back - Labs CBC & Chem 7: 06/01/24 05:48 06/01/24 05:48 Labs: Abnormal Lab Results - Last 24 Hours (Table) 05/31/24 05/31/24 05/31/24 Range/Units 11:52 16:49 20:39 RBC (4.40-5.60) X 10*6/uL Hgb (13.0-17.0) g/dL Hct (39.6-50.0) % Potassium (3.5-5.5) mmol/L BUN/Creatinine Ratio (12.00-20.00) Ratio Glucose (70-110) mg/dL POC Glucose (mg/dL) 67 L 154 H 118 H (70-110) mg/dL Hemoglobin A1c (<=6.0) % Calcium (8.7-10.3) mg/dL Total Protein (6.2-8.2) g/dL Albumin (3.8-4.9) g/dL 06/01/24 06/01/24 06/01/24 Range/Units 05:48 05:48 05:48 RBC 4.26 L (4.40-5.60) X 10*6/uL Hgb 12.3 L (13.0-17.0) g/dL Hct 37.5 L (39.6-50.0) % Potassium 3.4 L (3.5-5.5) mmol/L BUN/Creatinine Ratio 23.67 H (12.00-20.00) Ratio Glucose 48 A* (70-110) mg/dL POC Glucose (mg/dL) (70-110) mg/dL Hemoglobin A1c 6.6 H (<=6.0) % Calcium 8.6 L (8.7-10.3) mg/dL Total Protein 5.7 L (6.2-8.2) g/dL Albumin 3.6 L (3.8-4.9) g/dL 06/01/24 06/01/24 Range/Units 06:17 11:37 RBC (4.40-5.60) X 10*6/uL Hgb (13.0-17.0) g/dL Hct (39.6-50.0) % Potassium (3.5-5.5) mmol/L BUN/Creatinine Ratio (12.00-20.00) Ratio Glucose (70-110) mg/dL POC Glucose (mg/dL) 55 L 174 H (70-110) mg/dL Hemoglobin A1c (<=6.0) % Calcium (8.7-10.3) mg/dL Total Protein (6.2-8.2) g/dL Albumin (3.8-4.9) g/dL Microbiology - Last 24 Hours (Table) 05/30/24 15:04 Blood Culture - Preliminary Blood Assessment and Plan Plan: acute COVID-19 infection, the exact timing of the infection is not known, likely acute. Previous vaccination and infection status is not known. Clinically stable. Acute change in mental status on top of chronic dementia. CAT scan of the brain shows no acute abnormalities and consistent with chronic findings. Rule out viral induced encephalopathy. Currently stable. There is obvious background dementia. 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 Dementia Parkinson's disease Hypertension Hyperlipidemia Chronic debility secondary to Parkinson's/dementia with difficulties in mobility and previous history of falls Macular degeneration Chronic marijuana use Plan Continue supportive care Monitor mental status Supportive care regarding COVID-19 Oxygenation is stable no indication for systemic steroids and the patient is not having any respiratory distress or hypoxemia, the patient remains on room air oxygen Chest x-ray was reviewed, no significant abnormalities hemoglobin, no significant abnormalities check D-dimers nonelevated at 0.8 Check LDH, nonelevated Check procalcitonin level not elevated Resume home medications Monitor mental status Lovenox 40 mg subcu for DVT prophylaxis We will continue to follow
[2024-06-01 16:43] LABS: Glucose,Whole Blood 116 mg/dL (70-110)
[2024-06-01 21:14] LABS: Glucose,Whole Blood 138 mg/dL (70-110)
[2024-06-02] MEDS: ZINC OXIDE PASTE (Z-GUARD) 1 APPLIC TOPICAL PRN (05:52)
[2024-06-02 06:34] LABS: Glucose,Whole Blood 115 mg/dL (70-110)
[2024-06-02 11:43] LABS: Glucose,Whole Blood 200 mg/dL (70-110)
[2024-06-02 12:25] LABS: African American GFR (CKD) >90 (>60 ml/min/1.73 sqM); Anion Gap 9 mmol/L; Blood Urea Nitrogen 15 mg/dL (9-20); Calcium 8.8 mg/dL (8.4-10.2); Carbon Dioxide 27 mmol/L (22-30); Chloride 104 mmol/L (98-107); Glucose 160 mg/dL (74-99); Non-African American GFR(CKD) >90 (>60 ml/min/1.73 sqM); Potassium 3.6 mmol/L (3.5-5.1); Sodium 140 mmol/L (137-145)
--- NOTE | 2024-06-02 13:45 | P.PN ---
Subjective Progress Note Date: 06/02/24 This is a 73-year-old male patient presented to the emergency department because of altered mentation. The patient is known to have dementia and the patient is oriented x 2-3 at baseline. Over the past 24 to 48 hours, the patient became progressively more lethargic and sleepy and weak and he was unable to ambulate on his own. He usually ambulates with the help of a walker. Noted his also has been sick and she had a respiratory illness. The patient accordingly was brought into the emergency department and tested positive for COVID-19. Urine drug screen was also positive for marijuana. The white cell count was at 8.9 with a hemoglobin 15.2 with a platelet count of 138. Normal coagulation profile. Normal electrolytes. BUN was 14 with a creatinine of 0.5. Initial lactic acid level was at 5.3. Normal LFTs. Troponins were negative. CRP level was at 3.3. proBNP level was 387. Chest x-ray done in the emergency department showed blunting of the left costophrenic angle could be related to a small left- sided pleural effusion/infiltrate. CAT scan of the brain was also done in the emergency department that showed mild generalized atrophy with mild to moderate burden of chronic small vessel ischemic disease without any acute abnormalities. The patient is hemodynamically stable. Currently afebrile. Slightly tachycardic. Is on room air oxygen with a pulse ox of 97%. Comorbidities include dementia, Parkinson's disease, diabetes mellitus maintain ed on Levemir insulin 50 units daily and Trulicity. Patient also has BPH. Hyperlipidemia. Macular degeneration and diabetic peripheral neuropathy and retinopathy. Uses marijuana on a daily basis. 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 Also known to have coronary artery disease and he has undergone previous stenting of the circumflex back in 2016. Previous echocardiogram from 2018 showed a preserved LV function without any significant valvular abnormalities and the patient has a concentric LVH. On 05/31/2024, patient is being seen for a follow-up. Overall condition remains essentially unchanged. The patient has advanced dementia and normally is oriented x 2-3. He is very much lethargic and weak and is working with physical therapy. He has tested positive for COVID-19. Nevertheless, there is no eviden ce of any pneumonia. Oxygenation remained stable and the patient's pulse ox is 94% room air oxygen. He was given empiric antibiotic coverage with Zithromax. Rest of the home medications were resumed. He is also on Lovenox 40 mg subcu for DVT prophylaxis. In terms of his labs, his procalcitonin level was at 0.07, nonelevated. His proBNP level was 387. Troponins were negative. LDH was 222. Lactic acid level is dropped down to 1.0. Legionella urine antigen is negative. The rest of the viral screen was also negative. On 06/01/2024, patient is being seen for a follow-up. This patient is 73 with COVID-19 infection and the patient has been has dementia and he had a component of worsening level of consciousness at the time of admission. Currently stable. Continues to have generalized weakness and ongoing constitutional symptoms. Nevertheless, despite all this, oxygenation remained stable and the patient's pulse ox 96% on room air oxygen. Treatment is essentially supportive at this point in time. The patient remains on his home medications. Hemodynamically stable. No new complaints. Labs from today show a WBC count of 7.4 with a heme of 12.3 and a platelet count of 159. Sodium levels at 142, potassium level is at 3.4, BUN is 14 with a creatinine of 0.6. LFTs are normal. Albumin is at 3.6. UA was showing ketones at time of admission. No signs of any infection. Blood culture has been negative. On 06/02/2024, patient is being seen for a follow-up. Overall condition remains essentially unchanged. He is communicating. Denies having any specific complaints. Hemodynamically stable on room air oxygen. Medications remain unchanged. Sodium is at 140, BUN is 15 with a creatinine of 0.5. Afebrile. Tolerating diet. He is still feeling fatigued and weak. Objective - Vital Signs Vital signs: Vital Signs Temp 97.5 F L 06/02/24 07:12 Pulse 82 06/02/24 07:12 Resp 15 06/02/24 07:12 BP 122/69 06/02/24 07:12 Pulse Ox 94 L 06/02/24 02:00 FiO2 Intake & Output 06/01/24 06/02/24 06/02/24 18:59 06:59 18:59 Intake Total 540 Output Total 700 Balance -700 540 Intake: Oral 540 Output: Urine 700 Other: Voiding Method External Catheter Urinal # Voids 1 4 # Bowel Movements 1 - Exam The patient very lethargic, not communicating at this point in time. Lying comfortably in bed. No signs of any respiratory distress and the patient is currently on room air oxygen. Mucous membranes are extremely dry. Head exam is unremarkable. No scleral icterus or corneal arcus noted. Neck is without jugular venous distension, thyromegaly, or carotid bruits. Carotid upstrokes are brisk bilaterally. Lungs are clear to auscultation and percussion. Cardiac exam reveals the PMI to be normally sized and situated. Rhythm is regular. First and second heart sounds normal. No murmurs, rubs or gallops. Abdominal exam reveals normal bowel sounds, no masses, no organomegaly and no aortic enlargement. Extremities are nonedematous and both femoral and pedal pulses are normal. Examination of the skin revealed no evidence of significant rashes, suspicious appearing nevi or other concerning lesions. Neurologically, the patient lethargic, nonverbal, diffuse motor weakness in all 4 extremities. No focal neurological deficits. Pupils are equal reactive to light. No facial asymmetry. Noted the patient was able to follow simple commands and his neurologic exam is nonfocal. Lower back - Labs CBC & Chem 7: 06/01/24 05:48 06/02/24 11:29 Labs: Abnormal Lab Results - Last 24 Hours (Table) 06/01/24 06/01/24 06/01/24 Range/Units 11:37 16:41 21:13 POC Glucose (mg/dL) 174 H 116 H 138 H (70-110) mg/dL 06/02/24 Range/Units 06:33 POC Glucose (mg/dL) 115 H (70-110) mg/dL Microbiology - Last 24 Hours (Table) 05/30/24 15:04 Blood Culture - Preliminary Blood Assessment and Plan Plan: acute COVID-19 infection, the exact timing of the infection is not known, likely acute. Previous vaccination and infection status is not known. Clinically stable. Acute change in mental status on top of chronic dementia. CAT scan of the brain shows no acute abnormalities and consistent with chronic findings. Rule out viral induced encephalopathy. Currently stable. There is obvious background dementia. 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 Dementia Parkinson's disease Hypertension Hyperlipidemia Chronic debility secondary to Parkinson's/dementia with difficulties in mobility and previous history of falls Macular degeneration Chronic marijuana use Plan No changes condition Symptoms have essentially constitutional related to COVID-19 infection Continue supportive care Monitor mental status Supportive care regarding COVID-19 Oxygenation is stable no indication for systemic steroids and the patient is not having any r espiratory distress or hypoxemia, the patient remains on room air oxygen Chest x-ray was reviewed, no significant abnormalities hemoglobin, no significant abnormalities check D-dimers nonelevated at 0.8 Check LDH, nonelevated Check procalcitonin level not elevated Resume home medications Monitor mental status Lovenox 40 mg subcu for DVT prophylaxis We will continue to follow
[2024-06-02 16:54] LABS: Glucose,Whole Blood 145 mg/dL (70-110)
[2024-06-02 20:43] LABS: Glucose,Whole Blood 239 mg/dL (70-110)
[2024-06-02] MEDS ORDERED: DEXTROSE 50% SYRINGE 50 ML IVP PRN ×2 (21:04)
--- NOTE | 2024-06-02 21:06 | P.PN ---
Subjective Progress Note Date: 06/02/24 Today in follow-up with the floor. Patient with acute COVID-pneumonia on room air at this time. Patient is currently pending placement at [facility] for subacute rehab. Discussed with social work he is unable to discharge today. Electrolytes and renal function remain stable. Review of Systems Constitutional: Denied any fatigue denied any fever. Cardio vascular: denied any chest pain, palpitations Gastrointestinal: denied any nausea, vomiting, diarrhea Pulmonary: Denied any shortness of breath cough Neurologic denied any new focal deficits All inpatient medications were reviewed and appropriate changes in these medications as dictated in the interval history and assessment and plan. PHYSICAL EXAMINATION: GENERAL: The patient is alert and oriented x3, not in any acute distress. Well developed, well nourished. HEENT: Pupils are round and equally reacting to light. EOMI. No scleral icterus. No conjunctival pallor. Normocephalic, atraumatic. No pharyngeal erythema. No thyromegaly. CARDIOVASCULAR: S1 and S2 present. No murmurs, rubs, or gallops. PULMONARY: Chest is clear to auscultation, no wheezing or crackles. ABDOMEN: Soft, nontender, nondistended, normoactive bowel sounds. No palpable organomegaly. MUSCULOSKELETAL: No joint swelling or deformity. EXTREMITIES: No cyanosis, clubbing, or pedal edema. NEUROLOGICAL: Gross neurological examination did not reveal any focal deficits. SKIN: No rashes. Assessment and Plan Acute covid pneumonia and sepsis patient is currently on room air. Hypertension Generalized weakness due to viral infection Diabetes Mellitus type 2 Parkinsons disease DVT prophylaxis Lovenox Full Code Plan Appreciate pulmonary consultation Continue supportive care Continue accuchecks ACHS, Metformin and levemir Monitor renal function and electrolytes Pending ECF [facility] unable to discharge today and likely will be Tuesday Social work following The impression and plan of care has been dictated by Miracle Lutz Nurse Practitioner as directed. Dr. Mary Ellen MD I have performed a history and physical examination and medical decision making of this patient, discussed the same with the dictator, and agree with the dictators assessment and plan as written, documented as a scribe. Based on total visit time, I have performed more than 50% of this visit. Objective - Vital Signs Vital signs: Vital Signs Temp 98.2 F 06/02/24 19:09 Pulse 87 06/02/24 19:09 Resp 16 06/02/24 19:09 BP 107/63 06/02/24 19:09 Pulse Ox 95 06/02/24 19:09 FiO2 Intake & Output 06/02/24 06/02/24 06/03/24 06:59 18:59 06:59 Intake Total 540 Balance 540 Intake: Oral 540 Other: Voiding Method Urinal # Voids 4 3 # Bowel Movements 0 - Labs CBC & Chem 7: 06/01/24 05:48 06/02/24 11:29 Labs: Abnormal Lab Results - Last 24 Hours (Table) 06/01/24 06/02/24 06/02/24 Range/Units 21:13 06:33 11:29 Creatinine 0.52 L (0.66-1.25) mg/dL Glucose 160 H (74-99) mg/dL POC Glucose (mg/dL) 138 H 115 H (70-110) mg/dL 06/02/24 06/02/24 06/02/24 Range/Units 11:42 16:52 20:40 Creatinine (0.66-1.25) mg/dL Glucose (74-99) mg/dL POC Glucose (mg/dL) 200 H 145 H 239 H (70-110) mg/dL Microbiology - Last 24 Hours (Table) 05/30/24 15:04 Blood Culture - Preliminary Blood Assessment and Plan Time with Patient: Less than 30
[2024-06-02] MEDS: INSULIN ASPART (NovoLOG) 100 UNIT/ML VIAL SQ SCH (21:28)
[2024-06-03 06:26] LABS: Glucose,Whole Blood 77 mg/dL (70-110)
[2024-06-03] MEDS: NON FORMULARY DRUG (Dulaglutide [Trulicity] 0.75 MG/0.5 ML Each) SQ SCH (08:57)
[2024-06-03 11:19] LABS: Glucose,Whole Blood 113 mg/dL (70-110)
--- NOTE | 2024-06-03 13:22 | P.PN ---
Subjective Progress Note Date: 06/03/24 This is a 73-year-old male patient presented to the emergency department because of altered mentation. The patient is known to have dementia and the patient is oriented x 2-3 at baseline. Over the past 24 to 48 hours, the patient became progressively more lethargic and sleepy and weak and he was unable to ambulate on his own. He usually ambulates with the help of a walker. Noted his also has been sick and she had a respiratory illness. The patient accordingly was brought into the emergency department and tested positive for COVID-19. Urine drug screen was also positive for marijuana. The white cell count was at 8.9 with a hemoglobin 15.2 with a platelet count of 138. Normal coagulation profile. Normal electrolytes. BUN was 14 with a creatinine of 0.5. Initial lactic acid level was at 5.3. Normal LFTs. Troponins were negative. CRP level was at 3.3. proBNP level was 387. Chest x-ray done in the emergency department showed blunting of the left costophrenic angle could be related to a small left- sided pleural effusion/infiltrate. CAT scan of the brain was also done in the emergency department that showed mild generalized atrophy with mild to moderate burden of chronic small vessel ischemic disease without any acute abnormalities. The patient is hemodynamically stable. Currently afebrile. Slightly tachycardic. Is on room air oxygen with a pulse ox of 97%. Comorbidities include dementia, Parkinson's disease, diabetes mellitus maintain ed on Levemir insulin 50 units daily and Trulicity. Patient also has BPH. Hyperlipidemia. Macular degeneration and diabetic peripheral neuropathy and retinopathy. Uses marijuana on a daily basis. 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 Also known to have coronary artery disease and he has undergone previous stenting of the circumflex back in 2016. Previous echocardiogram from 2018 showed a preserved LV function without any significant valvular abnormalities and the patient has a concentric LVH. On 05/31/2024, patient is being seen for a follow-up. Overall condition remains essentially unchanged. The patient has advanced dementia and normally is oriented x 2-3. He is very much lethargic and weak and is working with physical therapy. He has tested positive for COVID-19. Nevertheless, there is no eviden ce of any pneumonia. Oxygenation remained stable and the patient's pulse ox is 94% room air oxygen. He was given empiric antibiotic coverage with Zithromax. Rest of the home medications were resumed. He is also on Lovenox 40 mg subcu for DVT prophylaxis. In terms of his labs, his procalcitonin level was at 0.07, nonelevated. His proBNP level was 387. Troponins were negative. LDH was 222. Lactic acid level is dropped down to 1.0. Legionella urine antigen is negative. The rest of the viral screen was also negative. On 06/01/2024, patient is being seen for a follow-up. This patient is 73 with COVID-19 infection and the patient has been has dementia and he had a component of worsening level of consciousness at the time of admission. Currently stable. Continues to have generalized weakness and ongoing constitutional symptoms. Nevertheless, despite all this, oxygenation remained stable and the patient's pulse ox 96% on room air oxygen. Treatment is essentially supportive at this point in time. The patient remains on his home medications. Hemodynamically stable. No new complaints. Labs from today show a WBC count of 7.4 with a heme of 12.3 and a platelet count of 159. Sodium levels at 142, potassium level is at 3.4, BUN is 14 with a creatinine of 0.6. LFTs are normal. Albumin is at 3.6. UA was showing ketones at time of admission. No signs of any infection. Blood culture has been negative. On 06/02/2024, patient is being seen for a follow-up. Overall condition remains essentially unchanged. He is communicating. Denies having any specific complaints. Hemodynamically stable on room air oxygen. Medications remain unchanged. Sodium is at 140, BUN is 15 with a creatinine of 0.5. Afebrile. Tolerating diet. He is still feeling fatigued and weak. On 06/03/2024, patient is being seen for a follow-up. The patient is known to have dementia. The patient was hospitalized for an acute COVID-19 infection. He was encountering generalized weakness and fatigue and he seems to be much more alert and awake on today's evaluation. He is communicating. Pulse ox 96% on room air oxygen. Afebrile and hemodynamically stable. No blood work was done from today. Meanwhile, home medication below resumed. Remains on Levemir insulin 50 units daily and sliding scale coverage. Remains on Sinemet, Namenda and Provigil. Objective - Vital Signs Vital signs: Vital Signs Temp 97.0 F L 06/03/24 07:56 Pulse 79 06/03/24 07:56 Resp 16 06/03/24 07:56 BP 111/63 06/03/24 07:56 Pulse Ox 96 06/03/24 07:56 FiO2 Intake & Output 06/02/24 06/03/24 06/03/24 18:59 06:59 18:59 Other: Voiding Method Incontinent # Voids 3 1 # Bowel Movements 0 - Exam The patient very lethargic, not communicating at this point in time. Lying comfortably in bed. No signs of any respiratory distress and the patient is currently on room air oxygen. Mucous membranes are extremely dry. Head exam is unremarkable. No scleral icterus or corneal arcus noted. Neck is without jugular venous distension, thyromegaly, or carotid bruits. Carotid upstrokes are brisk bilaterally. Lungs are clear to auscultation and percussion. Cardiac exam reveals the PMI to be normally sized and situated. Rhythm is regular. First and second heart sounds normal. No murmurs, rubs or gallops. Abdominal exam reveals normal bowel sounds, no masses, no organomegaly and no aortic enlargement. Extremities are nonedematous and both femoral and pedal pulses are normal. Examination of the skin revealed no evidence of significant rashes, suspicious appearing nevi or other concerning lesions. Neurologically, the patient lethargic, nonverbal, diffuse motor weakness in all 4 extremities. No focal neurological deficits. Pupils are equal reactive to light. No facial asymmetry. Noted the patient was able to follow simple commands and his neurologic exam is nonfocal. Lower back - Labs CBC & Chem 7: 06/01/24 05:48 06/02/24 11:29 Labs: Abnormal Lab Results - Last 24 Hours (Table) 06/02/24 06/02/24 06/02/24 Range/Units 11:29 11:42 16:52 Creatinine 0.52 L (0.66-1.25) mg/dL Glucose 160 H (74-99) mg/dL POC Glucose (mg/dL) 200 H 145 H (70-110) mg/dL 06/02/24 Range/Units 20:40 Creatinine (0.66-1.25) mg/dL Glucose (74-99) mg/dL POC Glucose (mg/dL) 239 H (70-110) mg/dL Microbiology - Last 24 Hours (Table) 05/30/24 15:04 Blood Culture - Preliminary Blood Assessment and Plan Plan: acute COVID-19 infection, the exact timing of the infection is not known, likely acute. Previous vaccination and infection status is not known. Clinically stable. Acute change in mental status on top of chronic dementia. CAT scan of the brain shows no acute abnormalities and consistent with chronic findings. Rule out viral induced encephalopathy. Currently stable. There is obvious background dementia. 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 Dementia Parkinson's disease Hypertension Hyperlipidemia Chronic debility secondary to Parkinson's/dementia with difficulties in mobility and previous history of falls Macular degeneration Chronic marijuana use Plan No changes condition, no active pulmonary issues Symptoms have essentially constitutional related to COVID-19 infection Continue supportive care Monitor mental status Supportive care regarding COVID-19 Oxygenation is stable no indication for systemic steroids and the patient is not having any respir atory distress or hypoxemia, the patient remains on room air oxygen Chest x-ray was reviewed, no significant abnormalities hemoglobin, no significant abnormalities check D-dimers nonelevated at 0.8 Check LDH, nonelevated Check procalcitonin level not elevated Resume home medications Monitor mental status Lovenox 40 mg subcu for DVT prophylaxis Further medical management per medical team.
--- NOTE | 2024-06-03 14:07 | P.PN ---
Subjective Progress Note Date: 06/03/24 Today in follow-up with the floor. Patient with acute COVID-pneumonia on room air at this time. Patient is currently pending placement at [facility] for subacute rehab. Discussed with social work he is unable to discharge today. Electrolytes and renal function remain stable. 06/03/2024 Patient evaluated in follow-up in the medical floor. Patient continues to await placement at rehab which will most likely happen tomorrow on Tuesday. He is having no acute complaints at this time from the acute COVID infection and remains with adequate saturations on room air. Pulmonary following. Review of Systems Constitutional: Denied any fatigue denied any fever. Cardio vascular: denied any chest pain, palpitations Gastrointestinal: denied any nausea, vomiting, diarrhea Pulmonary: Denied any shortness of breath cough Neurologic denied any new focal deficits All inpatient medications were reviewed and appropriate changes in these medications as dictated in the interval history and assessment and plan. PHYSICAL EXAMINATION: GENERAL: The patient is alert and oriented x3, not in any acute distress. Well developed, well nourished. HEENT: Pupils are round and equally reacting to light. EOMI. No scleral icterus. No conjunctival pallor. Normocephalic, atraumatic. No pharyngeal erythema. No thyromegaly. CARDIOVASCULAR: S1 and S2 present. No murmurs, rubs, or gallops. PULMONARY: Chest is clear to auscultation, no wheezing or crackles. ABDOMEN: Soft, nontender, nondistended, normoactive bowel sounds. No palpable organomegaly. MUSCULOSKELETAL: No joint swelling or deformity. EXTREMITIES: No cyanosis, clubbing, or pedal edema. NEUROLOGICAL: Gross neurological examination did not reveal any focal deficits. SKIN: No rashes. Assessment and Plan Acute covid pneumonia and sepsis patient is currently on room air. Hypertension Generalized weakness due to viral infection Diabetes Mellitus type 2 Parkinsons disease DVT prophylaxis Lovenox Full Code Plan Appreciate pulmonary consultation Continue supportive care Continue accuchecks ACHS, Metformin and levemir Monitor renal function and electrolytes Pending [facility] unable to discharge today and likely will be Tuesday Social work following The impression and plan of care has been dictated by Miracle Lutz Nurse Practitioner as directed. Dr. Mary Ellen MD I have performed a history and physical examination and medical decision making of this patient, discussed the same with the dictator, and agree with the dictators assessment and plan as written, documented as a scribe. Based on total visit time, I have performed more than 50% of this visit. Objective - Vital Signs Vital signs: Vital Signs Temp 97.0 F L 06/03/24 07:56 Pulse 79 06/03/24 07:56 Resp 16 06/03/24 07:56 BP 111/63 06/03/24 07:56 Pulse Ox 96 06/03/24 07:56 FiO2 Intake & Output 06/02/24 06/03/24 06/03/24 18:59 06:59 18:59 Other: Voiding Method Incontinent # Voids 3 1 # Bowel Movements 0 - Labs CBC & Chem 7: 06/01/24 05:48 06/02/24 11:29 Labs: Abnormal Lab Results - Last 24 Hours (Table) 06/02/24 06/02/24 06/02/24 Range/Units 11:29 11:42 16:52 Creatinine 0.52 L (0.66-1.25) mg/dL Glucose 160 H (74-99) mg/dL POC Glucose (mg/dL) 200 H 145 H (70-110) mg/dL 06/02/24 Range/Units 20:40 Creatinine (0.66-1.25) mg/dL Glucose (74-99) mg/dL POC Glucose (mg/dL) 239 H (70-110) mg/dL Microbiology - Last 24 Hours (Table) 05/30/24 15:04 Blood Culture - Preliminary Blood Assessment and Plan Time with Patient: Less than 30
[2024-06-03 16:31] LABS: Glucose,Whole Blood 128 mg/dL (70-110)
[2024-06-03 19:52] LABS: Glucose,Whole Blood 130 mg/dL (70-110)
[2024-06-04 06:26] LABS: Glucose,Whole Blood 77 mg/dL (70-110)
--- NOTE | 2024-06-04 08:00 | CDI ---
Documentation Clarification Form Date: 06/04/2024 07:30:45 AM From: Carmen Garcia RN CCDS Phone: [phone] Admit Date: 05/30/2024 01:29:00 PM Patient Name: Elmer Fermin Visit Number: [id number] Discharge Date: ATTENTION: The Clinical Documentation Specialists (CDI) and [facility] Coding Staff appreciate your assistance in clarifying documentation. Please respond to the clarification below the line at the bottom and electronically sign. The CDI & [facility] Coding staff will review the response and follow-up if needed. Please note: Queries are made part of the Legal Health Record. If you have any questions, please contact the author of this message via ITS. Dr: Alisha Santos Rule out viral induced encephalopathy is documented 05/30, Pulmonary consult.. Additional clarification regarding the type of encephalopathy is requested. History/Risk Factors: 73 year old male presents to the ED with Altered mental mentation. Medical History: Dementia, Parkinsons, CAD, Chest pain/Angina, DM, HLD, HTN, HI and DM. 05/31, HP. Clinical Indicators: Labs: 05/30: Wbc 8.9 :Lymphocytes 0.6, D-Dimer 0.86, Cr 0.58, Lactic acid 5.3, CRP 3.3. SARS CoV 2 PCR Detect[address] A Brain CT 05/30: Mild generalized atrophy and mld to moderate burden of chronic small vessel ischemic disease. Treatment: 0.9Ns 2.5L IV Bolus, 05/30 Theragran 1 po daily, Vitamin B12 po daily, Please clarify encephalopathy, if known: [ x] Metabolic Encephalopathy Ruled in [ ] Metabolic Encephalopathy Ruled out [ ] Other, please specify [ ] Unable to determine (Template Last Revised: July 2020) MTDD
[2024-06-04 11:04] LABS: Glucose,Whole Blood 97 mg/dL (70-110)
[2024-06-04 16:27] LABS: Glucose,Whole Blood 158 mg/dL (70-110)
[2024-06-04 20:24] LABS: Glucose,Whole Blood 163 mg/dL (70-110)
[2024-06-05 06:18] LABS: Glucose,Whole Blood 71 mg/dL (70-110)
[2024-06-05 11:07] LABS: Glucose,Whole Blood 159 mg/dL (70-110)
[2024-06-05 16:25] LABS: Glucose,Whole Blood 106 mg/dL (70-110)
[2024-06-05 20:34] LABS: Glucose,Whole Blood 102 mg/dL (70-110)
[2024-06-06 06:15] LABS: Glucose,Whole Blood 68 mg/dL (70-110)
[2024-06-06 06:40] LABS: Glucose,Whole Blood 68 mg/dL (70-110)
[2024-06-06 07:05] LABS: Glucose,Whole Blood 102 mg/dL (70-110)
--- NOTE | 2024-06-06 08:30 | P.PN ---
Subjective Essentially awaiting placement. Objective - Vital Signs Vital signs: Vital Signs Temp 97.3 F L 06/06/24 08:00 Pulse 65 06/06/24 08:00 Resp 17 06/06/24 08:00 BP 97/60 06/06/24 08:00 Pulse Ox 96 06/06/24 08:00 FiO2 Intake & Output 06/05/24 06/06/24 06/06/24 18:59 06:59 18:59 Output Total 900 Balance -900 Output: Urine 900 Other: # Voids 2 - Constitutional General appearance: Present: average body habitus, cooperative - Respiratory Respiratory: bilateral: diminished - Cardiovascular Rhythm: regular Heart sounds: normal: S1, S2 Abnormal Heart Sounds: Absent: S3 Gallop - Gastrointestinal General gastrointestinal: Present: soft. Absent: splenomegaly - Labs CBC & Chem 7: 06/01/24 05:48 06/02/24 11:29 Labs: Abnormal Lab Results - Last 24 Hours (Table) 06/05/24 06/06/24 06/06/24 Range/Units 11:07 06:12 06:39 POC Glucose (mg/dL) 159 H 68 L 68 L (70-110) mg/dL Assessment and Plan (1) Hypertension Current Visit: Yes Status: Acute Code(s): I10 - ESSENTIAL (PRIMARY) HYPERTENSION SNOMED Code(s): 54192627 (2) Pneumonia due to COVID-19 virus Current Visit: Yes Status: Acute Code(s): U07.1 - COVID-19; J12.82 - PNEUMONIA DUE TO CORONAVIRUS DISEASE 2019 SNOMED Code(s): 972706690637731290 (3) Weakness Current Visit: Yes Status: Acute Code(s): R53.1 - WEAKNESS SNOMED Code(s): 36824744 (4) Diabetes Current Visit: No Status: Acute Code(s): E11.9 - TYPE 2 DIABETES MELLITUS WITHOUT COMPLICATIONS SNOMED Code(s): 07482360 (5) Parkinson disease Current Visit: No Status: Acute Code(s): G20.A1 - PARKINSON'S DIS W/O DYSKINESIA, W/O MENTION OF FLUCTUATIONS SNOMED Code(s): 53190381 Plan: Placement to rehab/ECF. Will continue to follow.
[2024-06-06 11:32] LABS: Glucose,Whole Blood 113 mg/dL (70-110)
[2024-06-06 14:35] VITALS: BMI 25.1
[2024-06-06 16:40] LABS: Glucose,Whole Blood 177 mg/dL (70-110)
[2024-06-06 20:51] LABS: Glucose,Whole Blood 144 mg/dL (70-110)
[2024-06-07 03:39] VITALS: RESP 16
[2024-06-07 06:19] LABS: Glucose,Whole Blood 87 mg/dL (70-110)
[2024-06-07 08:36] VITALS: BP 107/62; PULSE 68; TEMP 96.4
--- NOTE | 2024-06-07 08:58 | P.PN ---
Subjective Progress Note Date: 06/07/24 This is a 73-year-old patient with a history of dementia and recent COVID infection who is awaiting placement at ECF. He continues to be medically stable. Objective - Vital Signs Vital signs: Vital Signs Temp 96.4 F L 06/07/24 07:55 Pulse 68 06/07/24 07:55 Resp 16 06/07/24 07:55 BP 107/62 06/07/24 07:55 Pulse Ox 98 06/07/24 07:55 FiO2 Intake & Output 06/06/24 06/07/24 06/07/24 18:59 06:59 18:59 Output Total 700 Balance -700 Weight 79.379 kg Output: Urine 700 Other: Voiding Method Diaper # Voids 2 # Bowel Movements 2 - Constitutional General appearance: Present: cooperative, no acute distress - EENT Eyes: Present: PERRLA - Neck Neck: Present: normal ROM. Absent: lymphadenopathy, rigidity - Respiratory Respiratory: bilateral: diminished - Cardiovascular Rhythm: regular Heart sounds: normal: S1, S2 - Musculoskeletal Musculoskeletal: Present: generalized weakness - Labs CBC & Chem 7: 06/01/24 05:48 06/02/24 11:29 Labs: Abnormal Lab Results - Last 24 Hours (Table) 06/06/24 06/06/24 06/06/24 Range/Units 11:30 16:36 20:48 POC Glucose (mg/dL) 113 H 177 H 144 H (70-110) mg/dL Assessment and Plan (1) COVID Current Visit: Yes Status: Acute Code(s): U07.1 - COVID-19 SNOMED Code(s): 126017595 (2) Hypertension Current Visit: Yes Status: Acute Code(s): I10 - ESSENTIAL (PRIMARY) HYPERTENSION SNOMED Code(s): 20179505 (3) Altered mental status Current Visit: Yes Status: Acute Code(s): R41.82 - ALTERED MENTAL STATUS, UNSPECIFIED SNOMED Code(s): 114034629 (4) Weakness Current Visit: Yes Status: Acute Code(s): R53.1 - WEAKNESS SNOMED Code(s): 16492102 (5) Diabetes Current Visit: No Status: Acute Code(s): E11.9 - TYPE 2 DIABETES MELLITUS WITHOUT COMPLICATIONS SNOMED Code(s): 82505231 Plan: Await ECF placement, then may be discharged. Patient seen and evaluated by nurse practitioner, physician in agreement with plan.
--- NOTE | 2024-06-07 10:47 | P.DS ---
Providers Date of admission: 05/30/24 13:29 Attending physician: Wilver Najera Consults: 05/30/24 13:44 Consult Physician Urgent Consulting Provider: Alisha Santos Consult Reason/Comments: COVID pneumonia Do you want consulting provider notified?: Yes Primary care physician: Wilver Najera - Discharge Diagnosis(es) (1) COVID Current Visit: Yes Status: Acute (2) Hypertension Current Visit: Yes Status: Acute (3) Altered mental status Current Visit: Yes Status: Acute (4) Weakness Current Visit: Yes Status: Acute (5) Diabetes Current Visit: No Status: Acute Hospital Course: This is a 73-year-old male who originally presented to the emergency department with complaints of altered mentation. Patient does have a known history of dementia and is normally oriented x 2-3 at baseline. Patient had been more lethargic and weak at home per his . Patient tested positive for COVID on admission. He was seen and evaluated by physical therapy and Occupational Therapy who are recommending subacute rehab at discharge. Patient's vitals are stable. He is still somewhat weak but is cleared for discharge to subacute rehab. He is seen this morning sitting up in bed eating breakfast. He is more awake and alert than he has been. Patient seen and evaluated by nurse practitioner, physician in agreement with plan. Patient Condition at Discharge: Stable Plan - Discharge Summary Discharge Rx Participant: Yes New Discharge Prescriptions: Continue DULoxetine HCL [Cymbalta] 60 mg PO DAILY Metoprolol Succinate [Toprol XL] 50 mg PO BID Atorvastatin [Lipitor] 80 mg PO HS #30 tab Clopidogrel Bisulfate [Plavix] 75 mg PO DAILY Aspirin 81 mg PO DAILY #30 chew Nitroglycerin Sl Tabs [Nitrostat] 0.4 mg SUBLINGUAL Q5M PRN #25 tab PRN Reason: Chest Pain Multivit-Min/Folic/Vit K/Lycop [Men's Multivitamin Tablet] 1 tab PO DAILY Memantine [Namenda] 10 mg PO BID Dulaglutide [Trulicity] 0.75 mg SQ TURNER Midodrine [ProAmatine] 5 mg PO DAILY modafiniL [Provigil] 100 mg PO DAILY Empagliflozin [Jardiance] 25 mg PO DAILY Donepezil HCl [Aricept] 10 mg PO BID Carbidopa-Levodopa ER 50-200Mg [Sinemet CR 50-200 mg] 2 tab PO BID metFORMIN HCL ER [Glucophage XR] 1,500 mg PO W/SUPPER Fludrocortisone Acetate 0.1 mg PO DAILY Insulin Degludec [Tresiba Flextouch U-200 Pen] 50 units SQ HS #0 Cyanocobalamin [Vitamin B-12] 500 mcg PO DAILY Carbidopa-Levodopa 25-100 mg [Sinemet 25-100 mg] 1 tab PO BID Tamsulosin HCl [Flomax] 0.4 mg PO DAILY Nystatin 100,000 Unit/gm Powd [Mycostatin Powder] 1 applic TOPICAL BID Discharge Medication List DULoxetine HCL [Cymbalta] 60 mg PO DAILY 09/22/15 [History] Metoprolol Succinate [Toprol XL] 50 mg PO BID 09/22/15 [History] Atorvastatin [Lipitor] 80 mg PO HS #30 tab 09/25/15 [Rx] Clopidogrel Bisulfate [Plavix] 75 mg PO DAILY 07/05/17 [History] Aspirin 81 mg PO DAILY #30 chew 07/07/17 [Rx] Nitroglycerin Sl Tabs [Nitrostat] 0.4 mg SUBLINGUAL Q5M PRN #25 tab 07/07/17 [Rx] Carbidopa-Levodopa ER 50-200Mg [Sinemet CR 50-200 mg] 2 tab PO BID 10/20/21 [History] Donepezil HCl [Aricept] 10 mg PO BID 10/20/21 [History] Dulaglutide [Trulicity] 0.75 mg SQ TURNER 10/20/21 [History] Empagliflozin [Jardiance] 25 mg PO DAILY 10/20/21 [History] Memantine [Namenda] 10 mg PO BID 10/20/21 [History] Multivit-Min/Folic/Vit K/Lycop [Men's Multivitamin Tablet] 1 tab PO DAILY 10/20/21 [History] metFORMIN HCL ER [Glucophage XR] 1,500 mg PO W/SUPPER 04/15/22 [History] Fludrocortisone Acetate 0.1 mg PO DAILY 08/10/23 [History] Midodrine [ProAmatine] 5 mg PO DAILY 08/10/23 [History] Insulin Degludec [Tresiba Flextouch U-200 Pen] 50 units SQ HS #0 08/15/23 [Rx] Carbidopa-Levodopa 25-100 mg [Sinemet 25-100 mg] 1 tab PO BID 05/30/24 [History] Cyanocobalamin [Vitamin B-12] 500 mcg PO DAILY 05/30/24 [History] Nystatin 100,000 Unit/gm Powd [Mycostatin Powder] 1 applic TOPICAL BID 05/30/24 [History] Tamsulosin HCl [Flomax] 0.4 mg PO DAILY 05/30/24 [History] modafiniL [Provigil] 100 mg PO DAILY 05/30/24 [History] Follow up Appointment(s)/Referral(s): Wilver Najera MD [Primary Care Provider] - 1 Week (ECF please call for follow-up appointment.) Discharge Disposition: TRANSFER TO SNF/ECF
[2024-06-07 11:37] LABS: Glucose,Whole Blood 84 mg/dL (70-110)
== END 2024-06-07 11:49 | DRG 871 ==
LOC: EC 08:10 → 4SSUR 13:29
PROVIDERS: ADMIT Family Medicine; ATTEND Family Medicine
DX: A41.89 Other specified sepsis (principal); G93.41 Metabolic encephalopathy; U07.1 COVID-19; J12.82 Pneumonia due to coronavirus disease 2019; E87.20 Acidosis, unspecified; Z86.16 Personal history of COVID-19; Z87.01 Personal history of pneumonia (recurrent); I10 Essential (primary) hypertension; I25.10 Atherosclerotic heart disease of native coronary artery without angina pectoris; F02.80 Dementia in other diseases classified elsewhere, unspecified severity, without behavioral disturbance, psychotic disturbance, mood disturbance, and anxiety; G20.A1 Parkinson's disease without dyskinesia, without mention of fluctuations; E78.5 Hyperlipidemia, unspecified; F12.90 Cannabis use, unspecified, uncomplicated; H35.30 Unspecified macular degeneration; G20.B1 Parkinson's disease with dyskinesia, without mention of fluctuations; E11.42 Type 2 diabetes mellitus with diabetic polyneuropathy; E11.319 Type 2 diabetes mellitus with unspecified diabetic retinopathy without macular edema; I25.2 Old myocardial infarction; I65.22 Occlusion and stenosis of left carotid artery; N40.0 Benign prostatic hyperplasia without lower urinary tract symptoms; Z79.02 Long term (current) use of antithrombotics/antiplatelets; Z79.4 Long term (current) use of insulin; Z79.82 Long term (current) use of aspirin; Z79.84 Long term (current) use of oral hypoglycemic drugs; Z79.899 Other long term (current) drug therapy; Z95.5 Presence of coronary angioplasty implant and graft; Z87.891 Personal history of nicotine dependence; Z87.19 Personal history of other diseases of the digestive system; Z98.41 Cataract extraction status, right eye
CPT/HCPCS: 36415; 51701; 70450; 71046; 80048; 80053; 80306; 81003; 83036; 83605; 83615; 83735; 83880; 84145; 84484; 85025; 85027; 85379; 85610; 85730; 86140; 87040; 87449; 87636; 93005; 94760; 96365; 96366; 96367; 96372; 99285